=== PATIENT | male | born 1960 | race American Indian/Alaskan Native ===

== ENCOUNTER 2016-11-23 13:24 | Outpatient (CLI) | payer MEDICAID ==
--- NOTE | 2016-11-23 14:53 | XRay Report ---
CHEST 2 VIEWS INDICATION: Cough. COMPARISON: 11/09/2015 FINDINGS: PA and lateral chest radiographs demonstrate new approximately 11 x 2.7 cm right upper lobe pneumonia extending from the hilum obliquely to the pleura. Subtle 7 cm light left upper lobe hazy pneumonia also not entirely excluded versus artifactual. Normal cardiomediastinal silhouette. Clear remainder lungs without pleural effusions or CHF. Intact bones. CONCLUSION: New large right mid lung pneumonia with questionable subtle left upper lobe hazy opacity as well. Please correlate. Followup to complete resolution after adequate conservative treatment suggested. Thank you for the opportunity to participate in this patient's care.
== END 2016-11-23 13:25 | disposition home or self-care (01) ==
LOC: XRAY 13:24
PROVIDERS: ATTEND Internal Medicine Hematology & Oncology
DX: J18.9 Pneumonia, unspecified organism (principal); I10 Essential (primary) hypertension; D64.9 Anemia, unspecified
CPT/HCPCS: 71020

== ENCOUNTER 2016-12-01 16:11 | Emergency (ER) | payer MEDICAID ==
[2016-12-01 16:30] VITALS: BP 105/66
[2016-12-01] MEDS ORDERED: LEVAQUIN PO ONE (19:25)
--- NOTE | 2016-12-01 19:31 | Emergency Department Report ---
- General Chief Complaint: Upper Respiratory Infection Stated Complaint: COLD SYMPTOMS Time Seen by Provider: 12/01/16 19:18 Source: patient Mode of arrival: Ambulatory Limitations: No Limitations - History of Present Illness Initial Comments: Patient comes into the ER today with complaints of continued cough and congestion for the past 2-3 weeks. Patient states that he was seen by his doctor last week and set up here for a chest x-ray but has not been told what the results were. Patient denies any fever, body aches, chest pain. MD Complaint: cough -: week(s) (2) - Related Data Previous Rx's Medication Instructions Recorded Last Taken Type ALBUTEROL Inhaler [ProAir HFA 2 puff IH QID PRN #1 each 12/01/16 Unknown Rx Inhaler] Levofloxacin [Levaquin] 750 mg PO QDAY #10 tablet 12/01/16 Unknown Rx Allergies Allergy/AdvReac Type Severity Reaction Status Date / Time No Known Allergies Allergy Unverified 05/10/13 08:48 ED Review of Systems ROS: Stated complaint: COLD SYMPTOMS Other details as noted in HPI Constitutional: other (fatigue). denies: chills, fever Eyes: denies: eye pain, eye discharge, vision change ENT: denies: ear pain, throat pain Respiratory: cough. denies: shortness of breath, SOB with exertion, wheezing Cardiovascular: denies: chest pain, palpitations Endocrine: no symptoms reported Gastrointestinal: denies: abdominal pain, nausea, diarrhea Genitourinary: denies: urgency, dysuria Musculoskeletal: denies: back pain, joint swelling, arthralgia Skin: denies: rash, lesions Neurological: denies: headache, weakness, paresthesias Psychiatric: denies: anxiety, depression Hematological/Lymphatic: denies: easy bleeding, easy bruising ED Past Medical Hx - Past Medical History Previous Medical History?: Yes Hx Hypertension: Yes Hx Congestive Heart Failure: No Hx Diabetes: No Hx Liver Disease: Yes Hx Asthma: No Hx COPD: No Additional medical history: gout. Poor historian. History of liver disease. Previous transfusion in the past and celiotomy for "internal bleeding". - Surgical History Past Surgical History?: Yes Additional Surgical History: Exploratory laparotomy years ago after an accident - Social History Smoking Status: Never Smoker Substance Use Type: Alcohol, Prescribed - Medications Home Medications: Home Medications Medication Instructions Recorded Confirmed Last Taken Type ALBUTEROL Inhaler [ProAir HFA 2 puff IH QID PRN #1 each 12/01/16 Unknown Rx Inhaler] Levofloxacin [Levaquin] 750 mg PO QDAY #10 tablet 12/01/16 Unknown Rx ED Physical Exam - General Limitations: No Limitations General appearance: alert, in no apparent distress - Head Head exam: Present: atraumatic, normocephalic - Eye Eye exam: Present: normal appearance. Absent: conjunctival injection - ENT ENT exam: Present: mucous membranes moist, TM's normal bilaterally, normal external ear exam, other (diffuse dental decay) - Neck Neck exam: Present: normal inspection. Absent: tenderness, lymphadenopathy - Respiratory Respiratory exam: Present: rhonchi. Absent: respiratory distress, wheezes, chest wall tenderness, accessory muscle use, decreased breath sounds - Cardiovascular Cardiovascular Exam: Present: regular rate, normal rhythm, normal heart sounds. Absent: systolic murmur, diastolic murmur, rubs, gallop - GI/Abdominal GI/Abdominal exam: Present: soft, normal bowel sounds. Absent: tenderness, guarding - Rectal Rectal exam: Present: deferred - Extremities Exam Extremities exam: Present: normal inspection. Absent: pedal edema, joint swelling, calf tenderness - Back Exam Back exam: Present: normal inspection - Neurological Exam Neurological exam: Present: alert, oriented X3, CN II-XII intact - Psychiatric Psychiatric exam: Present: normal affect, normal mood - Skin Skin exam: Present: warm, dry, intact, normal color. Absent: rash ED Course Vital Signs 12/01/16 16:25 Temperature 97.5 F L Pulse Rate 116 H Respiratory 18 Rate Blood Pressure 105/66 O2 Sat by Pulse 98 Oximetry ED Medical Decision Making - Medical Decision Making Patient is nontoxic appearing and hemodynamically stable. Patient is in no acute distress during examination. Previously ordered chest x-ray from his primary care doctor reviewed and discussed with patient in room. Informed patient that his chest x-ray did show he has a right sided pneumonia noted on x- ray. Patient states that he has an appointment with his primary care doctor back on December 16. I'll start patient on antibiotics accordingly and strongly encourage patient to keep appointment with primary care doctor or return to here if symptoms worsen. Patient is in agreement with treatment plan patient is stable for discharge. Critical care attestation.: If time is entered above; I have spent that time in minutes in the direct care of this critically ill patient, excluding procedure time. ED Disposition Clinical Impression: Pneumonia Disposition: DC-01 TO HOME OR SELFCARE Is pt being admited?: No Does the pt Need Aspirin: No Condition: Stable Instructions: Community-acquired Pneumonia (ED), How to Use a Metered-Dose Inhaler (ED) Prescriptions: ALBUTEROL Inhaler [ProAir HFA Inhaler] 2 puff IH QID PRN #1 each PRN Reason: Shortness Of Breath Levofloxacin [Levaquin] 750 mg PO QDAY #10 tablet Referrals: PRIMARY CARE, [Primary Care Provider] - 3-5 Days Time of Disposition: 19:34
== END 2016-12-01 19:55 | disposition home or self-care (01) ==
LOC: ED 16:11
DX: J18.9 Pneumonia, unspecified organism (principal); I10 Essential (primary) hypertension
CPT/HCPCS: 99282

== ENCOUNTER 2016-12-12 12:55 | Inpatient (IN) | payer MEDICAID ==
--- NOTE | 2016-12-12 14:50 | Emergency Department Report ---
Chief Complaint: Chest Pain Stated Complaint: COUGHING BLOOD/DIZZY/LOW BP Time Seen by Provider: 12/12/16 14:47 - HPI History of Present Illness: She is a 56-year-old male recently diagnosed with pneumonia month ago complains of bloody sputum productive cough. Patient also admits to chest pain and difficulty breathing. He also admits night sweats Patient denies fever/chills/abdominal pain/dizziness/headache - ROS Review of Systems: As noted in HPI - Exam Vital Signs: Vital Signs 12/12/16 14:26 Temperature 98.0 F Pulse Rate 96 H Respiratory 22 Rate Blood Pressure 107/67 O2 Sat by Pulse 98 Oximetry Physical Exam: GENERAL: Alert and oriented x3, actively coughing up blood HEAD: Head is normocephalic and a-traumatic. EYES: There is yellowish tint to the sclera bilaterally NECK: Supple. Non edematous, No carotid bruits. No lymphadenopathy or thyromegaly. No C-spine tenderness LUNGS: Decreased breath sounds, respiratory symmetrical, HEART: S1, S2 present, regular rate and rhythm without murmur, no rubs, no gallops. Non tender to palpation MSE screening note: Focused history and physical exam performed. Due to findings the following was ordered: ED Medical Decision Making - Medical Decision Making Chest x-ray ordered, chest pain protocol ordered. Patient to be seen by ED physician. ED Disposition for MSE Condition: Stable
--- NOTE | 2016-12-12 15:35 | XRay Report ---
ROUTINE CHEST, TWO VIEWS: HISTORY: Cough, bloody sputum, pain. Compared to 11/23/16. Linear opacity extending from the right hilum to the right upper lobe is unchanged. There is new or increased peribronchial infiltrate in the left apical region on today's exam. Lower lung zones remain clear. No pleural effusion or pneumothorax. Heart size is within normal limits. IMPRESSION: Stable right upper lobe opacity which may represent scarring. New or increased left apical opacity. This could represent pneumonia. Tuberculosis should also be considered. Consider further evaluation with CT chest with contrast.
[2016-12-12 15:50] LABS: Basophils % (Auto) 0.5 % (0.0-1.8); Eosinophils % (Auto) 1.1 % (0.0-4.3); Hematocrit 27.9 % (35.5-45.6); Hemoglobin 9.2 gm/dl (11.8-15.2); Mean Corpuscular HGB Conc 33 % (32-34); Mean Corpuscular Hemoglobin 26 pg (28-32); Mean Corpuscular Volume 80 fl (84-94); Platelet Count 316 K/mm3 (140-440); Red Blood Count 3.51 M/mm3 (3.65-5.03); Red Cell Distribution Width 18.2 % (13.2-15.2); White Blood Count 9.2 K/mm3 (4.5-11.0)
[2016-12-12 16:15] LABS: Anion Gap 27 mmol/L; Blood Urea Nitrogen 25 mg/dL (9-20); Carbon Dioxide 16 mmol/L (22-30); Chloride 91.4 mmol/L (98-107); Glucose 104 mg/dL (75-100); Potassium 4.8 mmol/L (3.6-5.0); Sodium 130 mmol/L (137-145)
[2016-12-12] MEDS ORDERED: NACL 0.9% 1000 ML 1,000 ML IV ONE ×2 (22:06)
--- NOTE | 2016-12-12 22:23 | Emergency Department Report ---
ED General Adult HPI - General Chief complaint: Chest Pain Stated complaint: COUGHING BLOOD/DIZZY/LOW BP Time Seen by Provider: 12/12/16 21:46 Source: patient Mode of arrival: Ambulatory Limitations: No Limitations - History of Present Illness Initial comments: 56-year-old male presents to the emergency department complaining of chest pain , night sweats, and coughing up blood. Patient states he's been coughing up blood for approximately 2 months. Initially it was just specks of bright red blood, but it has now become more voluminous and thicker. He began having some chest pain yesterday. Patient denies fever but states he has been having chills. He also reports weight loss, but cannot say how much is loss. Patient states she was recently treated for pneumonia, but is not getting any better. There are no other complaints. -: Gradual, month(s) (2) Location: chest Radiation: non-radiation Severity scale (0 -10): 2 Quality: aching Consistency: constant Improves with: none Worsens with: none Associated Symptoms: cough, diaphoresis, fever/chills - Related Data Previous Rx's Medication Instructions Recorded Last Taken Type ALBUTEROL Inhaler [ProAir HFA 2 puff IH QID PRN #1 each 12/01/16 Unknown Rx Inhaler] Levofloxacin [Levaquin] 750 mg PO QDAY #10 tablet 12/01/16 Unknown Rx Allergies Allergy/AdvReac Type Severity Reaction Status Date / Time No Known Allergies Allergy Unverified 05/10/13 08:48 ED Review of Systems ROS: Stated complaint: COUGHING BLOOD/DIZZY/LOW BP Other details as noted in HPI Comment: All other systems reviewed and negative Constitutional: chills, diaphoresis Respiratory: cough, other (hemoptysis) Cardiovascular: chest pain Endocrine: unexplained weight loss ED Past Medical Hx - Past Medical History Previous Medical History?: Yes Hx Hypertension: Yes Hx Congestive Heart Failure: No Hx Diabetes: No Hx Liver Disease: Yes Hx Asthma: No Hx COPD: No Additional medical history: gout. Poor historian. History of liver disease. Previous transfusion in the past and celiotomy for "internal bleeding". - Surgical History Past Surgical History?: Yes Additional Surgical History: Exploratory laparotomy years ago after an accident - Family History Family history: no significant - Social History Smoking Status: Never Smoker Substance Use Type: Alcohol - Medications Home Medications: Home Medications Medication Instructions Recorded Confirmed Last Taken Type ALBUTEROL Inhaler [ProAir HFA 2 puff IH QID PRN #1 each 12/01/16 Unknown Rx Inhaler] Levofloxacin [Levaquin] 750 mg PO QDAY #10 tablet 12/01/16 Unknown Rx ED Physical Exam - General Limitations: No Limitations General appearance: alert, in no apparent distress - Head Head exam: Present: atraumatic, normocephalic - Eye Eye exam: Present: normal appearance, PERRL, EOMI - ENT ENT exam: Present: normal exam, normal orophraynx, mucous membranes moist - Neck Neck exam: Present: normal inspection, full ROM. Absent: tenderness - Respiratory Respiratory exam: Present: normal lung sounds bilaterally. Absent: respiratory distress - Cardiovascular Cardiovascular Exam: Present: regular rate, normal rhythm, normal heart sounds - GI/Abdominal GI/Abdominal exam: Present: soft, normal bowel sounds. Absent: distended, tenderness - Extremities Exam Extremities exam: Present: normal inspection, full ROM. Absent: tenderness - Back Exam Back exam: Present: normal inspection, full ROM. Absent: tenderness - Neurological Exam Neurological exam: Present: alert, oriented X3. Absent: motor sensory deficit - Skin Skin exam: Present: warm, dry, intact ED Course Vital Signs 12/12/16 14:26 Temperature 98.0 F Pulse Rate 96 H Respiratory 22 Rate Blood Pressure 107/67 O2 Sat by Pulse 98 Oximetry ED Medical Decision Making - Lab Data Result diagrams: 12/12/16 15:39 12/12/16 15:39 - EKG Data -: EKG Interpreted by [facility] EKG shows normal: sinus rhythm, axis, intervals, QRS complexes, ST-T waves Rate: normal - EKG Data When compared to previous EKG there are: no significant change Interpretation: unchanged when compared t (11/04/2015) - Radiology Data Radiology results: report reviewed, image reviewed Chest x-ray shows stable right upper lobe opacity, which could be scarring. There is a new left upper lobe opacity that could represent pneumonia, tuberculosis is also a possibility. - Medical Decision Making N95 mask was worn at all times while interviewing and examining the patient. Lab and imaging results were reviewed and discussed with the patient and family. Blood cultures and AFB culture and smear have been ordered. Patient is to be admitted by the hospitalist. - Differential Diagnosis pneumonia, TB, atypical chest pain Critical care attestation.: If time is entered above; I have spent that time in minutes in the direct care of this critically ill patient, excluding procedure time. ED Disposition Clinical Impression: Pneumonia Qualifiers: Pneumonia type: due to unspecified organism Laterality: right Lung location: upper lobe of lung Qualified Code(s): J18.1 - Lobar pneumonia, unspecified organism Disposition: OP ADMIT IP TO THIS HOSP Is pt being admited?: Yes Condition: Stable Instructions: Bacterial Pneumonia (ED) Referrals: PRIMARY CARE, [Primary Care Provider] - 3-5 Days Time of Disposition: 22:06
--- NOTE | 2016-12-12 22:41 | Admit Criteria Form ---
Admission Criteria Documentation: PULMONARY DISEASE GRG Clinical Indications for Admission to Inpatient Care ( Place 'X' for any and all applicable criteria): Hospital admission is needed for appropriate care of the patient because of 1 or more of the following(1)(2): [ ]I. Impending or actual respiratory arrest. See Respiratory Failure GRG guideline for severe respiratory disease and long-term mechanical ventilation patients. (3)(4) (5) [ ]II. Severe airflow or ventilation abnormalities (not responsive to emergency and observation care treatment as appropriate) as indicated by 1 or more of the following (6)(7)(8)(9) : [ ]a) PCO2 greater than 42 mm Hg (5.6 kPa) and pH less than 7.35 (new) [ ]b) Documented PCO2 increased more than 5 mm Hg (0.7 kPa) from disease baseline [ ]c) Airflow measurements[A] less than 60% of previous best or predicted (eg, peak expiratory flow rate less than 300 L/min) despite intensive emergent treatment(B) [ ]d) Required respiratory treatments that are performable only in acute inpatient setting [ ]III. Severe respiratory findings (not responsive to emergency and observation care treatment as appropriate) including 1 or more of the following(6)(9)(10): [ ]a) Respiratory distress as indicated by ALL of the following(6)(11): [ ]i) Patient with 1 or more of the following: [ ]1) Dyspnea (difficulty breathing) [ ]2) Tachypnea [ ]3) Abnormal breathing pattern (eg, chest retractions) [ ]4) Other evidence of difficulty breathing [ ]ii) Evidence of respiratory compromise indicated by 1 or more of the following: [ ]1) Hypoxemia [ ]2) Altered mental status [ ]3) Other evidence of respiratory compromise (eg, pulmonary edema on chest x-ray) [ ]b) Stridor [ ]c) Gross hemoptysis(12) [ ]d) Acute cyanosis [ ]IV. Chronic lung disease with severe deterioration (not responsive to emergency and observation care treatment as appropriate) as indicated by 1 or more of the following(7) (13): [ ]a) SaO2 5% below baseline in patient with chronic hypoxemia [ ]b) New requirement for supplemental oxygen to keep SaO2 at baseline or acceptable level [ ]c) Required supplemental oxygen performable only in acute inpatient setting [ ]d) Severe airflow or ventilation abnormalities [ ]e) Previouslymobile patient unable to walk between rooms [ ]f) Inability to eat or sleep due to dyspnea [ ]g) Altered mental status that is severe or persistent [ ]V. Empyema or lung abscess(14)(15) [ ]Vl. Severe atelectasis or lung collapse(16)(17) [ ]Samantha. Tuberculosis requiring inpatient treatment as indicated by 1 or more of the following(18)(19)(20)(21): [ ]a) Diagnosis suspected (eg, symptomatic patient from endemic area or in high-risk population, with abnormal chest imaging) and cannot be ruled out within observation care timeframe (ie, sputum analysis, nucleic acid amplification techniques not rapidly available or not diagnostic) [ ]b) Severely symptomatic patient (eg, Hypoxemia, Hemodynamic instability, Tachypnea) [ ]c) Zilru-jjlb-szrsszzaf infection suspected in newly diagnosed patient (eg, treatment regimen may require near-term adjustment) [ ]d) Newly diagnosed patient at high-risk of short-term deterioration (eg, HIV positive, frail, immunocompromised, chronic lung disease) [ ]e) High infectivity suspected (eg, laryngeal disease, cavitary pulmonary lesions, ongoing positivity of sputum) and 1 or more of the following: [ ]i) Unexposed household contacts at high risk (eg, immunocompromised, elderly, infants, chronic lung disease) [ ]ii) Patient unable or unwilling to avoid exposing others (eg, significant psychiatric disease, substance abuse, developmental disability) [ ]f) Complication of tuberculosis requiring inpatient treatment (eg , constrictive pericarditis, tubercular meningitis) [ ]g) Hospitalization mandated by public health authority (eg, patient continually noncompliant with directly observed therapy) [ ]VIII. High-risk pulmonary infection as indicated by 1 or more of the following(22)(23)(24)(25): [ ]a) Temperature less than 95 degrees F (35 degrees C) or greater than 103.1 degrees F (39.5 degrees C) [ ]b) Hemodynamic instability [ ]c) Immunocompromised patient (eg, AIDS, post transplant, neutropenic)(26)(27) [ ]d) History of severe COPD(28) [ ]e) History of severely symptomatic congestive heart failure(29) [ ]f) Other high-risk comorbidity (eg, poorly controlled diabetes, cirrhosis, chronic renal insufficiency) [ ]g) Hypoxemia [ ]h) severe stridor (30) [ ]i) Outpatient, observation, or recovery facility therapy has failed, is not appropriate, or is not feasible. [ ]IX. Complications of tracheostomy that remains after emergency or observation level care(31)(32)(33)(34) [ ]X. Respiratory complications of organ transplant (eg, rejection, respiratory failure, respiratory infection)(27) [ ]XI. Severe pulmonary arterial hypertension or pulmonary vascular disease requiring inpatient care indicated by 1 or more of the following(35)(36)(37)(38): [ ]a) Initiation or change of vasodilators (IV, subcutaneous, or inhaled) or other vasoactive medications needed [ ]b) IV anticoagulation needed (eg, immediate anticoagulation necessary, alternatives not appropriate) [ ]c) Arterial or pulmonary artery catheter monitoring needed due to infusion or other treatment [ ]XII. Cystic fibrosis requiring inpatient care as indicated by 1 or more of the following(39)(40): [ ]a) Severe exacerbation that does not respond to intensified home therapy(41) [ ]b) Severe exacerbation with patient unable to perform prescribed treatments at home [ ]c) Pneumonia [ ]d) Pneumothorax(42) [ ]e) Atelectasis [ ]f) Hemoptysis(43) [ ]XIII. Bronchiectasis requiring inpatient care as indicated by 1 or more of the following(44)(45): [ ]a) Respiratory distress [ ]b) Severe exacerbation and outpatient or observation care therapy has failed, is not appropriate, or is not feasible. [ ]XIV. Sarcoidosis requiring inpatient care as indicated by 1 or more of the following(46)(47)(48): [ ]a) Respiratory distress [ ]b) Cardiac involvement with arrhythmia(49) [ ]c) Outpatient or observation care therapy has failed, is not appropriate, or is not feasible. [ ]XV. Intestitial lung disease requiring inpatient care as indicated by 1 or more of the following(50)(51): [ ]a) Respiratory distress [ ]b) Severe exacerbation and outpatient or observation care therapy has failed, is not appropriate, or is not feasible [ ]XVI. Allergic pneumonitis requiring inpatient care as indicated by 1 or more of the following(52): [ ]a) Respiratory distress [ ]b) Acute eosinophilic pneumonia [ ]c) Churg Harvey with cardiac involvement [ ]d) Outpatient or observation care therapy has failed, is not appropriate, or is not feasible [ ]XVIl. Severe right heart failure requiring inpatient care as indicated by 1 or more of the following(35)(53)(54): [ ]a) Respiratory distress [ ]b) Debilitating anasarca that remains after emergency or observation level care (eg, tissue [ ]c) breakdown with severe infection, inability to void due to edema) [C](41)(42)(43)(44) [ ]d) Hemodynamic instability [ ]e) Syncope [ ]f) Angina that requires inpatient care (eg, not treatable in emergency or observation level of care) [ ]g) Increasing organ failure (eg, liver congestion with significant and worsening or new elevation of transaminases) [ ]XVIll. Injury requiring inpatient care (medical) as indicated by 1 or more of the following(59)(60)(61) [ ]a) Significant inhalation injury (eg, smoke inhalation, other toxic inhalation)(62)(63)(64) [ ]b) Airway obstruction that remains or is unstable after emergency or observation level care(65)(66) [ ]c) Severe pain requiring acute inpatient management [ ]d) Lung contusion(67) [ ]e) Flail chest(68) [ ]f) Bronchial tree injury [ ]g) Air or fat emboli [ ]h) Other injury not treatable in emergency or observation level care (eg, hemothorax)(55) [ ]XlX. Pulmonary hemorrhage or significant hemoptysis(12)(43)(69) [ ]XXl. Complications of transplanted lung indicated by 1 or more of the following(70)(71) [ ]a) Acute graft rejection requiring inpatient management (eg, intravenous immunosuppression)(72)(73)(74) [ ]b) Failure of transplant lung as indicated by 1 or more of the following(75)(76): [ ]i) Anastomotic leak [ ]ii) Airway ischemia or necrosis [ ]iii) Airway fistula [ ]iv) Obstructing granulation tissue requiring intervention [ ]v) Bronchial stenosis or stricture requiring intervention [ ]vi) Tracheobronchomalacia requiring intervention [ ]vii) Severe airflow or ventilation abnormalities [ ]viii) Severe respiratory findings [ ]c) Infection requiring inpatient management (eg, Hemodynamic instability, need for intravenous antimicrobial treatment)(77)(78)(79)(80)(81)(82 [ ]d) Other complication of transplanted lung (eg, obliterative bronchiolitis, plastic bronchitis, thrombotic microangiopathy, constrictive pericarditis) requiring inpatient management(83)(84)(85)(86)(87) [ ]XXll. Inpatient palliative care needed.[D](88)(89)(90)(91) [X ]XXlll. Pulmonary Disease condition, symptom, or finding for which emergency and observation care have failed or are not considered appropriate. The original [facility] content created by [employer] has been revised. The portions of the content which have been revised are identified through the use of italic text or in bold, and [facility] has neither reviewed nor approved the modified material. All other unmodified content is copyright [employer] includes the [facility]. Please see references footnoted in the original [facility] edition 2017 Admission Criteria Met: Yes
[2016-12-12] MEDS ORDERED: ZOFRAN IV PRN (23:46)
[2016-12-12] MEDS ORDERED: TYLENOL PO PRN (23:46)
[2016-12-12] MEDS ORDERED: ROBITUSSIN PO PRN (23:48)
--- NOTE | 2016-12-13 03:58 | History and Physical Report ---
History of Present Illness Date of examination: 12/12/16 Date of admission: 12/12/16 22:44 Chief complaint: Chief complaint is hemoptysis, other complaining include chest pain, night sweats and weight loss History of present illness: History of present illness, patient is a 56-year-old male who said he has been having hemoptysis for about 2 months but noticed increasing blood in the sputum recently, patient started having chest pain within the last 24-48 hours and also complaining of night sweats and weight loss. There is history of chills but no fever, there is no history of shortness of breath and no history of dizziness, nausea or vomiting. Patient was recently treated for pneumonia but said he hasn't quite recovered Past History Past Medical History: No medical history Past Surgical History: No surgical history Social history: no significant social history Family history: no significant family history Medications and Allergies Allergies Allergy/AdvReac Type Severity Reaction Status Date / Time No Known Allergies Allergy Unverified 05/10/13 08:48 Home Medications Medication Instructions Recorded Confirmed Last Taken Type ALBUTEROL Inhaler [ProAir HFA 2 puff IH QID PRN #1 each 12/01/16 Unknown Rx Inhaler] Levofloxacin [Levaquin] 750 mg PO QDAY #10 tablet 12/01/16 Unknown Rx Active Meds: Active Medications Acetaminophen (Tylenol) 650 mg PO Q4H PRN PRN Reason: For Pain/Fever/Headache Guaifenesin (Robitussin) 200 mg PO Q4H PRN PRN Reason: Cough Heparin Sodium (Porcine) (Heparin) 5,000 unit SUB-Q Q12HR LESLI Sodium Chloride (Nacl 0.9% 1000 Ml) 1,000 mls @ 125 mls/hr IV ONCE ONE Stop: 12/13/16 06:05 Last Admin: 12/12/16 22:41 Dose: 125 mls/hr Azithromycin 500 mg/ Sodium (Chloride) 250 mls @ 250 mls/hr IV Q24HR LESLI Ceftriaxone Sodium (Rocephin/Ns 1 Gm/50 Ml) 1 gm in 50 mls @ 100 mls/hr IV Q24HR LESLI PRN Reason: Protocol Ondansetron HCl (Zofran) 4 mg IV Q8H PRN PRN Reason: Nausea And Vomiting Review of Systems Constitutional: weight loss, night sweats, no weight gain, no fever, no chills, no anorexia, no fatigue, no weakness, no malaise, no lethargy, no poor appetite Eyes: bilateral: other (NO BILATERAL EYE SYMPTOMS) Ears, nose, mouth and throat: no ear pain, no ear discharge, no decreased hearing, no nose pain, no nasal congestion, no nasal discharge, no bleeding gums , no dental pain, no mouth pain, no dysphagia, no hoarseness, no sore throat, no swelling in mouth, no post-nasal drip, no headache, no vertigo, no pain front of neck, no neck fullness/pressure Cardiovascular: chest pain, no palpitations, no syncope, no lightheadedness, no shortness of breath, no paroxysmal nocturnal dyspnea, no claudication, no high blood pressure, no leg edema Respiratory: hemoptysis, no cough, no excessive sputum, no shortness of breath, no dyspnea on exertion, no congestion, no wheezing, no pain, no respiratory infections Gastrointestinal: no abdominal pain, no nausea, no vomiting, no diarrhea, no constipation, no hematochezia, no loss of appetite, no early satiety, no heartburn, no indigestion, no excessive gas, no jaundice, no dyspepsia/bloating Genitourinary Male: no dysuria, no hematuria, no flank pain, no discharge, no urinary frequency, no urinary hesitancy, no nocturia, no incontinence, no erectile dysfunction, no impotence, no decreased libido, no testicular pain, no testicular lump, no difficulties fathering child, no polyuria, no urinary retention, no kidney stones Rectal: no pain, no itching, no hemorrhoids, no flatulence Musculoskeletal: no neck stiffness, no neck pain, no shooting arm pain, no arm numbness/tingling, no low back pain, no shooting leg pain, no hot joints, no morning stiffness, no muscle weakness, no muscle cramps, no myalgias, no atrophy , no fractures, no loss of height Integumentary: no rash, no pruritis, no redness, no sores, no wounds, no jaundice, no bullae, no lesions, no darkening of skin, no depigmentation, no acne, no dryness, no change in hair/nails, no brittle nails, no striae, no hirsutism, no foot/leg ulcers, no onychomycosis Neurological: no transient paralysis, no paralysis, no weakness, no parathesias , no numbness, no tingling, no seizures, no syncope, no tremors, no vertigo, no headaches, no migraines, no convulsions, no aphasia, no change in speech, no change in mentation, no confusion, no memory loss, no gait dysfunction, no sensory deficit, no double vision, no loss of vision, no hearing difficulties, no burning pain Psychiatric: no anxiety, no memory loss, no change in sleep habits, no sleep disturbances, no insomnia, no hypersomnia, no change in appetite, no change in libido, no suicidal ideation, no disorientation, no paranoia, no depression, no hopelessness, no anhedonia, no anxiety attacks, no difficulties concentrating, no confusion Endocrine: no cold intolerance, no heat intolerance, no excessive thirst, no polydipsia, no polyuria, no nocturia, no deepening of the voice, no thyroid mass , no palpatations Hematologic/Lymphatic: no easy bruising, no easy bleeding, no lymphadenopathy, no lymphedema, no thrombophilia Allergic/Immunologic: no urticaria, no allergic rhinitis, no wheezing, no persistent infections, no anaphylaxis, no angioedema, no gluten intolerance Exam - Constitutional Vitals: Temp Pulse Resp BP Pulse Ox 98.0 F 81 18 123/69 99 12/12/16 14:26 12/13/16 00:10 12/13/16 00:10 12/13/16 00:10 12/13/16 00:10 General appearance: Present: mild distress - EENT Eyes: Present: PERRL, EOM intact ENT: hearing intact, clear oral mucosa, dentition normal, no oropharyngeal erythema - Neck Neck: Present: supple, normal ROM - Respiratory Respiratory effort: normal - Cardiovascular Rhythm: regular Heart Sounds: Present: S1 & S2. Absent: rub, click - Extremities Extremities: no ischemia, No edema Peripheral Pulses: within normal limits - Abdominal General gastrointestinal: Present: soft, non-tender, non-distended. Absent: tender, distended, rigid, hepatomegaly, splenomegaly, mass Male genitourinary: Present: deferred - Rectal Rectal Exam: deferred - Integumentary Integumentary: Present: clear, warm, dry, normal turgor. Absent: erythema, jaundice, rash, clammy - Musculoskeletal Musculoskeletal: strength equal bilaterally - Psychiatric Psychiatric: appropriate mood/affect - Neurologic Neurologic: CNII-XII intact Results - Labs CBC & Chem 7: 12/12/16 15:39 12/12/16 15:39 Labs: Laboratory Last Values WBC 9.2 K/mm3 (4.5-11.0) 12/12/16 15:39 RBC 3.51 M/mm3 (3.65-5.03) L 12/12/16 15:39 Hgb 9.2 gm/dl (11.8-15.2) L 12/12/16 15:39 Hct 27.9 % (35.5-45.6) L 12/12/16 15:39 MCV 80 fl (84-94) L 12/12/16 15:39 MCH 26 pg (28-32) L 12/12/16 15:39 MCHC 33 % (32-34) 12/12/16 15:39 RDW 18.2 % (13.2-15.2) H 12/12/16 15:39 Plt Count 316 K/mm3 (140-440) 12/12/16 15:39 Lymph % (Auto) 10.1 % (13.4-35.0) L 12/12/16 15:39 [place] % (Auto) 8.5 % (0.0-7.3) H 12/12/16 15:39 Eos % (Auto) 1.1 % (0.0-4.3) 12/12/16 15:39 Baso % (Auto) 0.5 % (0.0-1.8) 12/12/16 15:39 Lymph # 0.9 K/mm3 (1.2-5.4) L 12/12/16 15:39 [place] # 0.8 K/mm3 (0.0-0.8) 12/12/16 15:39 Eos # 0.1 K/mm3 (0.0-0.4) 12/12/16 15:39 Baso # 0.0 K/mm3 (0.0-0.1) 12/12/16 15:39 Seg Neutrophils % 79.8 % (40.0-70.0) H 12/12/16 15:39 Seg Neutrophils # 7.3 K/mm3 (1.8-7.7) 12/12/16 15:39 Sodium 130 mmol/L (137-145) L 12/12/16 15:39 Potassium 4.8 mmol/L (3.6-5.0) 12/12/16 15:39 Chloride 91.4 mmol/L (98-107) L 12/12/16 15:39 Carbon Dioxide 16 mmol/L (22-30) L 12/12/16 15:39 Anion Gap 27 mmol/L 12/12/16 15:39 BUN 25 mg/dL (9-20) H 12/12/16 15:39 Creatinine 2.5 mg/dL (0.8-1.5) H 12/12/16 15:39 Estimated GFR 33 ml/min 12/12/16 15:39 BUN/Creatinine Ratio 10.00 % 12/12/16 15:39 Glucose 104 mg/dL (75-100) H 12/12/16 15:39 Calcium 8.0 mg/dL (8.4-10.2) L 12/12/16 15:39 Troponin T < 0.010 ng/mL (0.00-0.029) 12/12/16 15:39 Assessment and Plan - Patient Problems (1) Hemoptysis Current Visit: Yes Status: Acute Plan to address problem: Patient will be admitted to medical floor on droplet precaution for possible TB infection until ruled out for TB and will have sputum for AFB doneas ordered in the emergency room . She will have troponin level checked every 6 hours 2 level and will be on IV Rocephin 1 g daily and IV Zithromax 500 mg daily for treatment of pneumonia. Patient will be on Robitussin 200 mg every 4 hours for cough and will be on IV morphine 2 mg every 3 hours as needed for pain and IV Zofran 4 mg every 6 hours for nausea vomiting, patient will also be on oxygen by nasal cannula 2 L/m and Tylenol 650 mg by mouth every 4 hours for fever and headache. 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
[2016-12-13] MEDS: NACL 0.9% 1000 ML 1,000 ML IV SCH ×2 (05:11→18:46)
[2016-12-13 08:13] LABS: BUN/Creatinine Ratio 11.3; Calcium 7.3 mg/dL (8.4-10.2); Chloride 97.7 mmol/L (98-107); Potassium 4.1 mmol/L (3.6-5.0)
--- NOTE | 2016-12-13 10:08 | Consultation ---
History of Present Illness - Reason for Consult Consult date: 12/13/16 acute renal failure Requesting physician: AKSHAT URBINA - History of Present Illness This is a 56yo AAM with no significant past medical history, who presented to [facility] for having hemoptysis for about 2 months but noticed increasing blood in the sputum recently, patient also c/o chest pain within the last 24-48 hours and also complaining of night sweats and weight loss. patient was seen in ER in the last week of November for SOB, cough, was found to have RML pneumonia which was treated with levaquin. However symptoms did not improve. CXR from 12/12 showed stable RUL opacity with new/increased left apical opacity. Labs also showed elevated BUN/Cr at 25/2.5mg/dl along with hyponatremia and metabolic acidosis. based on chart review, pt's baseline Cr was 1.1mg/dl last year. Pt denies any h/ o recent travel, no sick contacts reported. pt reports chills, nausea and decreased appetite, however denies SOB, palpitations, dizziness, blurry vision, headaches, dysuria, frothy urine, abd pain. Denies recent NSAIDs use or IV contrast exposure. Past History Past Medical History: No medical history Past Surgical History: No surgical history Social history: no significant social history. denies: smoking, alcohol abuse, prescription drug abuse, IV drug use Family history: other (mother - DM, HTN) Medications and Allergies Allergies Allergy/AdvReac Type Severity Reaction Status Date / Time No Known Allergies Allergy Unverified 05/10/13 08:48 Home Medications Medication Instructions Recorded Confirmed Last Taken Type ALBUTEROL Inhaler [ProAir HFA 2 puff IH QID PRN #1 each 12/01/16 Unknown Rx Inhaler] Levofloxacin [Levaquin] 750 mg PO QDAY #10 tablet 12/01/16 Unknown Rx Active Meds: Active Medications Acetaminophen (Tylenol) 650 mg PO Q4H PRN PRN Reason: For Pain/Fever/Headache Guaifenesin (Robitussin) 200 mg PO Q4H PRN PRN Reason: Cough Heparin Sodium (Porcine) (Heparin) 5,000 unit SUB-Q Q12HR LESLI Azithromycin 500 mg/ Sodium (Chloride) 250 mls @ 250 mls/hr IV Q24HR LESLI Ceftriaxone Sodium (Rocephin/Ns 1 Gm/50 Ml) 1 gm in 50 mls @ 100 mls/hr IV Q24HR LESLI PRN Reason: Protocol Sodium Chloride (Nacl 0.9% 1000 Ml) 1,000 mls @ 100 mls/hr IV DIRECT LESLI Last Admin: 12/13/16 05:11 Dose: 100 mls/hr Ondansetron HCl (Zofran) 4 mg IV Q8H PRN PRN Reason: Nausea And Vomiting Review of Systems All systems: negative Constitutional: chills, night sweats, weakness, poor appetite Cardiovascular: chest pain, shortness of breath Respiratory: cough, hemoptysis, shortness of breath Exam - Vital Signs Vital signs: Vital Signs Temp Pulse Resp BP Pulse Ox 98.0 F 96 H 22 107/67 98 12/12/16 14:26 12/12/16 14:26 12/12/16 14:26 12/12/16 14:26 12/12/16 14:26 - General Appearance General appearance: well-developed, well-nourished, appears stated age EENT: ATNC, PERRL, mucous membranes moist Neck: Present: neck supple Respiratory: Ronchi, Productive Cough Heart: regular, S1S2 Gastrointestinal: Present: normal, normoactive bowel sounds Integumentary: no rash, other (no edema ) Neurologic: no focal deficit, alert and oriented x3, strength 5/5, CN 3-12 intact Psychiatric: mood/affect appropriate, cooperative Results - Lab Results 12/12/16 15:39 12/13/16 07:33 Most recent lab results Calcium 7.3 mg/dL (8.4-10.2) L 12/13/16 07:33 Assessment and Plan - Patient Problems (1) ARF (acute renal failure) Current Visit: Yes Status: Acute Qualifiers: Acute renal failure type: A Plan to address problem: Acute kidney injury possibly due to pre-renal azotemia. To rule out acute pulmonary renal syndrom/glomerulonephritis in the setting of acute hemoptysis, AKILAH. check UA, urine lytes, urine protein/cr ratio. check C3,C4, TOBY, ANCA, Anti GBM. If renal function does not improve on IVF, and significant hematuria/ proteinuria seen, will consider IV steroid pulse and obtain renal biopsy. cont supportive care for AKILAH, avoid nephrotoxins, NSAIDs, IV contrast Will monitor lytes and renal paramters closely and make further recommendations (2) Pulmonary-renal syndrome Current Visit: Yes Status: Acute Plan to address problem: work up as above. pt on resp isolation to rule out TB (3) Hemoptysis Current Visit: Yes Status: Acute Plan to address problem: rule out TB, acute pulmonary - renal syndrome. follow pulmonary recs (4) Metabolic acidosis Current Visit: Yes Status: Acute Plan to address problem: nonAG met acidosis in the setting of AKILAH. if serum bicarb continues to decline will start Na Bicarb (5) Pneumonia Current Visit: Yes Status: Acute Qualifiers: Pneumonia type: due to unspecified organism Aspiration pneumonia type: A Laterality: right Lung location: upper lobe of lung Qualified Code(s): J18.1 - Lobar pneumonia, unspecified organism Plan to address problem: on ceftriaxone, azithromycin for community acquired PNA (6) Anemia Current Visit: No Status: Acute Qualifiers: Anemia type: A Iron deficiency anemia type: I Vitamin B12 deficiency anemia type: V Folate deficiency anemia type: F Bone marrow failure anemia type: B Hemolytic anemia type: H Other causes of anemia: O Chronic kidney disease stage: C Plan to address problem: likely due to hemoptysis, follow serial CBC, transfuse for hb < 7, follow pulmonary recs (7) Hypokalemia Onset Date: 11/06/15 Current Visit: No Status: Acute (8) Hyponatremia Onset Date: 11/09/15 Current Visit: No Status: Acute Plan to address problem: likely hypovolemic nature. underlying SIADH acute pulmonary pathology possible. na improving on IV NS. Will check urine osm, serum uric acid level.
[2016-12-13] MEDS: HEPARIN SUB-Q SCH ×2 (11:28→21:57)
[2016-12-13] MEDS: ROCEPHIN/NS 1 GM/50 ML 1 GM/50 ML BAG IV SCH (11:29)
[2016-12-13] MEDS: ZITHROMAX 500 MG in NACL 0.9% 250ML 250 ML IV SCH (12:46)
--- NOTE | 2016-12-13 13:51 | Progress Note ---
Assessment and Plan Assessment and plan: D [id number] presents with pneumonia presently being ruled out for tuberculosis. Acute renal failure has improved somewhat with IV volume rehydration. - Patient Problems (1) ARF (acute renal failure) Current Visit: Yes Status: Acute Qualifiers: Acute renal failure type: A Plan to address problem: Q renal failure could be secondary to vasomotor nephropathy prerenal syndrome versus more chronic in nature. She has had an improvement in creatinine from 2.5-2.3. If no complete resolution workup has been initiated by nephrology. (2) Hemoptysis Current Visit: Yes Status: Acute Plan to address problem: Could be secondary to community-acquired pneumonia versus tuberculosis. Currently being treated with Rocephin and Zithromax for pneumonia. Currently awaiting AFB sputum to rule out TB person on isolation at present. Arthralgias and myalgias control. (3) Pneumonia Current Visit: Yes Status: Acute Qualifiers: Pneumonia type: due to unspecified organism Aspiration pneumonia type: A Laterality: right Lung location: upper lobe of lung Qualified Code(s): J18.1 - Lobar pneumonia, unspecified organism Plan to address problem: Seen to treat for community-acquired pneumonia chest x-ray appreciated left opacity in the upper lobe. Continue azithromycin Rocephin nebulizers Tylenol and oxygen. (4) Pulmonary-renal syndrome Current Visit: Yes Status: Acute (5) Hypertension Onset Date: 11/09/15 Current Visit: No Status: Acute Qualifiers: Hypertension type: H Plan to address problem: At present fair control when at titrate up medications could be potentially hypotensive with renal failure and/or lung failure. History Interval history: Patient states he feels a little better but still coughing up blood. Patient has pain with hemoptysis but improved. Hospitalist Physical - Constitutional Vitals: Temp Pulse Resp BP Pulse Ox 97.7 F 82 20 115/71 99 12/13/16 08:04 12/13/16 08:04 12/13/16 08:04 12/13/16 08:04 12/13/16 09:25 General appearance: Present: no acute distress - EENT Eyes: Present: PERRL, EOM intact ENT: hearing intact, clear oral mucosa, dentition normal - Neck Neck: Present: supple, normal ROM - Respiratory Respiratory: left: diminished, rhonchi (left) - Cardiovascular Rhythm: regular Heart Sounds: Present: S1 & S2 - Extremities Extremities: no ischemia, pulses intact, pulses symmetrical, No edema, Full ROM Peripheral Pulses: within normal limits - Abdominal General gastrointestinal: soft, non-tender, non-distended - Integumentary Integumentary: Present: clear, warm, dry - Psychiatric Psychiatric: appropriate mood/affect, cooperative - Neurologic Neurologic: CNII-XII intact Results - Labs CBC & Chem 7: 12/12/16 15:39 12/13/16 07:33 Labs: Laboratory Last Values WBC 9.2 K/mm3 (4.5-11.0) 12/12/16 15:39 RBC 3.51 M/mm3 (3.65-5.03) L 12/12/16 15:39 Hgb 9.2 gm/dl (11.8-15.2) L 12/12/16 15:39 Hct 27.9 % (35.5-45.6) L 12/12/16 15:39 MCV 80 fl (84-94) L 12/12/16 15:39 MCH 26 pg (28-32) L 12/12/16 15:39 MCHC 33 % (32-34) 12/12/16 15:39 RDW 18.2 % (13.2-15.2) H 12/12/16 15:39 Plt Count 316 K/mm3 (140-440) 12/12/16 15:39 Lymph % (Auto) 10.1 % (13.4-35.0) L 12/12/16 15:39 [place] % (Auto) 8.5 % (0.0-7.3) H 12/12/16 15:39 Eos % (Auto) 1.1 % (0.0-4.3) 12/12/16 15:39 Baso % (Auto) 0.5 % (0.0-1.8) 12/12/16 15:39 Lymph # 0.9 K/mm3 (1.2-5.4) L 12/12/16 15:39 [place] # 0.8 K/mm3 (0.0-0.8) 12/12/16 15:39 Eos # 0.1 K/mm3 (0.0-0.4) 12/12/16 15:39 Baso # 0.0 K/mm3 (0.0-0.1) 12/12/16 15:39 Seg Neutrophils % 79.8 % (40.0-70.0) H 12/12/16 15:39 Seg Neutrophils # 7.3 K/mm3 (1.8-7.7) 12/12/16 15:39 Sodium 133 mmol/L (137-145) L 12/13/16 07:33 Potassium 4.1 mmol/L (3.6-5.0) 12/13/16 07:33 Chloride 97.7 mmol/L (98-107) L 12/13/16 07:33 Carbon Dioxide 21 mmol/L (22-30) L 12/13/16 07:33 Anion Gap 18 mmol/L 12/13/16 07:33 BUN 26 mg/dL (9-20) H 12/13/16 07:33 Creatinine 2.3 mg/dL (0.8-1.5) H 12/13/16 07:33 Estimated GFR 36 ml/min 12/13/16 07:33 BUN/Creatinine Ratio 11.30 % 12/13/16 07:33 Glucose 97 mg/dL (75-100) 12/13/16 07:33 Calcium 7.3 mg/dL (8.4-10.2) L 12/13/16 07:33 Troponin T < 0.010 ng/mL (0.00-0.029) 12/13/16 07:33
[2016-12-13 15:04] LABS: Bilirubin,Urine NEG (Negative); Blood,Urine NEG (Negative); Ketones,Urine NEG (Negative); Leukocyte Esterase,Urine NEG (Negative); Nitrite,Urine NEG (Negative); Protein,Urine <15 mg/dL mg/dL (Negative); Urobilinogen,Urine < 2.0 mg/dL (<2.0); WBC,Urine < 1.0 /HPF (0.0-6.0)
[2016-12-13 15:07] LABS: RBC,Urine < 1.0 /HPF (0.0-6.0)
[2016-12-13 15:26] LABS: Sodium, Urine 48 mEq/L
[2016-12-13] MEDS: NORCO 5/325 PO PRN (18:45)
--- NOTE | 2016-12-13 22:46 | Consultation ---
History of Present Illness - Reason for Consult Consult date: 12/13/16 Anemia/hemoptysis. Requesting physician: IRINA ZHU - History of Present Illness Thank you for this consult, patient seen/examined, in the isolation . Kindly asked to see for reasons above. he is well known to me in the office. presented to [facility] for the second time in 2weeks for PNA. this is a recurrent PNA , after the first large one was treated with ABX oral by ER. This time, Chest imaging suspecting TB, hence the Isolation. His hemoptysis is probably due to the recurrent PNA, perhaps strep PNA.He is a known Alcoholic, and this may even be Klebsiella , or even the TB. Will w/u his anemia again, put on ciwa, nutrition supplement, and will need PPD if non have been done. Past History Past Medical History: anemia, liver disease, other (gouty arthritis.) Past Surgical History: No surgical history Social history: single, lives with family, alcohol abuse. denies: smoking, prescription drug abuse, IV drug use Family history: no significant family history, other (mother - DM, HTN) Medications and Allergies Allergies Allergy/AdvReac Type Severity Reaction Status Date / Time No Known Allergies Allergy Unverified 05/10/13 08:48 Home Medications Medication Instructions Recorded Confirmed Last Taken Type ALBUTEROL Inhaler [ProAir HFA 2 puff IH QID PRN #1 each 12/01/16 12/12/16 Rx Inhaler] 100 MG Allopurinol 100 PO QDAY 12/13/16 12/12/16 History Amlodipine Besylate 10 mg PO DAILY 12/13/16 12/13/16 Unknown History Folic Acid [Folic Acid] 1 mg PO DAILY 12/13/16 12/13/16 Unknown History Hydrochlorothiazide [HCTZ] 50 mg PO DAILY 12/13/16 12/13/16 Unknown History Indomethacin 25 mg PO TID 12/13/16 12/13/16 Unknown History Levofloxacin [Levaquin] 750 mg PO QDAY MDD 100 mg 12/13/16 12/13/16 12/12/16 History Thiamine [Vitamin B-1] 100 mg PO QDAY 12/13/16 12/13/16 Unknown History Vitamin B-12 1,000 mcg PO DAILY 12/13/16 12/13/16 Unknown History Active Meds: Active Medications Acetaminophen (Tylenol) 650 mg PO Q4H PRN PRN Reason: For Pain/Fever/Headache Last Admin: 12/13/16 13:14 Dose: 650 mg Acetaminophen/Hydrocodone Bitart ([place] 5/325) 1 each PO Q6H PRN PRN Reason: Pain, Moderate (4-6) Last Admin: 12/13/16 18:45 Dose: 1 each Guaifenesin (Robitussin) 200 mg PO Q4H PRN PRN Reason: Cough Heparin Sodium (Porcine) (Heparin) 5,000 unit SUB-Q Q12HR [facility] Last Admin: 12/13/16 21:57 Dose: 5,000 unit Azithromycin 500 mg/ Sodium (Chloride) 250 mls @ 250 mls/hr IV Q24HR [facility] Last Admin: 12/13/16 12:46 Dose: 250 mls/hr Ceftriaxone Sodium (Rocephin/Ns 1 Gm/50 Ml) 1 gm in 50 mls @ 100 mls/hr IV Q24HR [facility] PRN Reason: Protocol Last Admin: 12/13/16 11:29 Dose: 100 mls/hr Sodium Chloride (Nacl 0.9% 1000 Ml) 1,000 mls @ 100 mls/hr IV DIRECT [facility] Last Admin: 12/13/16 18:46 Dose: 100 mls/hr Ondansetron HCl (Zofran) 4 mg IV Q8H PRN PRN Reason: Nausea And Vomiting Review of Systems Constitutional: fatigue, poor appetite Respiratory: cough, cough with sputum, hemoptysis Exam - Constitutional Vitals: Temp Pulse Resp BP Pulse Ox 97.2 F L 85 20 102/57 97 12/13/16 16:36 12/13/16 16:36 12/13/16 16:36 12/13/16 16:36 12/13/16 17:43 General appearance: Present: mild distress, malodorous - EENT Eyes: Present: PERRL ENT: hearing intact, clear oral mucosa - Neck Neck: Present: supple, normal ROM - Respiratory Respiratory effort: normal Respiratory: left: rhonchi - Cardiovascular Heart Sounds: Present: S1 & S2. Absent: rub, click - Extremities Extremities: pulses symmetrical, No edema Peripheral Pulses: within normal limits - Abdominal General gastrointestinal: Present: soft, non-tender, non-distended, normal bowel sounds Male genitourinary: Present: deferred - Rectal Rectal Exam: deferred - Integumentary Integumentary: Present: clear, warm, dry - Musculoskeletal Musculoskeletal: gait normal, strength equal bilaterally - Psychiatric Psychiatric: appropriate mood/affect, intact judgment & insight - Neurologic Neurologic: CNII-XII intact, moves all extremities Results - Labs CBC & Chem 7: 12/12/16 15:39 12/13/16 07:33 Labs: Abnormal lab results 12/13/16 12/13/16 Range/Units 07:33 14:30 Sodium 133 L (137-145) mmol/L Chloride 97.7 L (98-107) mmol/L Carbon Dioxide 21 L (22-30) mmol/L BUN 26 H (9-20) mg/dL Creatinine 2.3 H (0.8-1.5) mg/dL Calcium 7.3 L (8.4-10.2) mg/dL Urine Creatinine 62.0 H (0.1-20.0) mg/dL Urine Total Protein < 4 L (5-11.8) mg/dL Assessment and Plan - Patient Problems (1) ARF (acute renal failure) Current Visit: Yes Status: Acute Qualifiers: Acute renal failure type: A (2) Hemoptysis Current Visit: Yes Status: Acute (3) Pneumonia Current Visit: Yes Status: Acute Qualifiers: Pneumonia type: due to unspecified organism Aspiration pneumonia type: A Laterality: right Lung location: upper lobe of lung Qualified Code(s): J18.1 - Lobar pneumonia, unspecified organism (4) Alcohol dependence with withdrawal delirium Onset Date: 11/05/15 Current Visit: No Status: Acute (5) Anemia Current Visit: No Status: Acute Qualifiers: Anemia type: A Iron deficiency anemia type: I Vitamin B12 deficiency anemia type: V Folate deficiency anemia type: F Bone marrow failure anemia type: B Hemolytic anemia type: H Other causes of anemia: chronic disease, other Chronic kidney disease stage: C Qualified Code(s): D63.8 - Anemia in other chronic diseases classified elsewhere
[2016-12-14 05:57] LABS: Basophils % (Auto) 1.9 % (0.0-1.8); Eosinophils % (Auto) 5.7 % (0.0-4.3); Hematocrit 23.8 % (35.5-45.6); Hemoglobin 7.7 gm/dl (11.8-15.2); Mean Corpuscular HGB Conc 32 % (32-34); Mean Corpuscular Hemoglobin 26 pg (28-32); Mean Corpuscular Volume 81 fl (84-94); Platelet Count 266 K/mm3 (140-440); Red Blood Count 2.94 M/mm3 (3.65-5.03); Red Cell Distribution Width 17.7 % (13.2-15.2); White Blood Count 5.7 K/mm3 (4.5-11.0)
[2016-12-14] MEDS: NORCO 5/325 PO PRN ×2 (06:04→12:39)
[2016-12-14 06:13] LABS: Anion Gap 15 mmol/L; BUN/Creatinine Ratio 13.57; Blood Urea Nitrogen 19 mg/dL (9-20); Calcium 7.5 mg/dL (8.4-10.2); Carbon Dioxide 21 mmol/L (22-30); Chloride 102.4 mmol/L (98-107); Glucose 84 mg/dL (75-100); Sodium 134 mmol/L (137-145)
[2016-12-14] MEDS: NACL 0.9% 1000 ML 1,000 ML IV SCH ×2 (06:17→22:19)
[2016-12-14 06:23] LABS: Iron 35 ug/dL (49-181); Total Iron Binding Capacity 177 mcg/dL (250-450)
--- NOTE | 2016-12-14 08:26 | Progress Note ---
Assessment and Plan Assessment and plan: 56M who presents with fever, weight loss and hemptysis. ARF (acute renal failure)/vasomotor nephropathy * Continue IV fluids, resolving * Nephrology input appreciated * To rule out acute pulmonary renal syndrom/glomerulonephritis in the setting of acute hemoptysis and AKILAH. However ua shows no evidence of hematuria/also no significant proteinuria seen. Less likely acute GN. awaiting C3,C4, TOBY, ANCA, Anti GBM. * Avoid nephrotoxins Pneumonia * chest x-ray appreciated left opacity in the upper lobe. * Continue abx, avoid quinolones in light of suspected TB * continue airborne isolation, AFB x3, ID and pulmonary consult * continue empiric antibiotics * send serum quantiferon. * HIV screen was negative on 12/14/16 * Bronchoscopy may be required if there is little yield from sputum cultures. Hypertension * well controlled, continue current medications DVT prophylaxis Lovenox History Interval history: Continues to have cough productive of blood-tinged sputum, low-grade fevers. Feels weak and tired. Complaining of arthralgias all over his body. Hospitalist Physical - Physical exam Narrative exam: General: Patient appears well in no distress HEENT: MMM, EOMI cardiac: S1-S2 heard lungs: clear to auscultation, abdomen: soft, nontender, nondistended bowel sounds positive extremities: no edema clubbing or cyanosis Skin: no rash or lesion Neuro: no focal deficit Psych: appropriate behavior and mood, cognition intact - Constitutional Vitals: Temp Pulse Resp BP Pulse Ox 98.3 F 83 20 118/69 99 12/13/16 23:40 12/14/16 04:00 12/14/16 04:00 12/13/16 23:40 12/14/16 07:22 General appearance: Present: mild distress, malodorous Results - Labs CBC & Chem 7: 12/14/16 05:40 12/14/16 05:40 Labs: Laboratory Last Values WBC 5.7 K/mm3 (4.5-11.0) 12/14/16 05:40 RBC 2.94 M/mm3 (3.65-5.03) L 12/14/16 05:40 Hgb 7.7 gm/dl (11.8-15.2) L 12/14/16 05:40 Hct 23.8 % (35.5-45.6) L 12/14/16 05:40 MCV 81 fl (84-94) L 12/14/16 05:40 MCH 26 pg (28-32) L 12/14/16 05:40 MCHC 32 % (32-34) 12/14/16 05:40 RDW 17.7 % (13.2-15.2) H 12/14/16 05:40 Plt Count 266 K/mm3 (140-440) 12/14/16 05:40 Lymph % (Auto) 18.5 % (13.4-35.0) 12/14/16 05:40 [place] % (Auto) 11.2 % (0.0-7.3) H 12/14/16 05:40 Eos % (Auto) 5.7 % (0.0-4.3) H 12/14/16 05:40 Baso % (Auto) 1.9 % (0.0-1.8) H 12/14/16 05:40 Lymph # 1.0 K/mm3 (1.2-5.4) L 12/14/16 05:40 [place] # 0.6 K/mm3 (0.0-0.8) 12/14/16 05:40 Eos # 0.3 K/mm3 (0.0-0.4) 12/14/16 05:40 Baso # 0.1 K/mm3 (0.0-0.1) 12/14/16 05:40 Seg Neutrophils % 62.7 % (40.0-70.0) 12/14/16 05:40 Seg Neutrophils # 3.6 K/mm3 (1.8-7.7) 12/14/16 05:40 ESR > 140.0 mm/Hr (0-20) 12/14/16 05:40 Sodium 134 mmol/L (137-145) L 12/14/16 05:40 Potassium 4.0 mmol/L (3.6-5.0) 12/14/16 05:40 Chloride 102.4 mmol/L (98-107) 12/14/16 05:40 Carbon Dioxide 21 mmol/L (22-30) L 12/14/16 05:40 Anion Gap 15 mmol/L 12/14/16 05:40 BUN 19 mg/dL (9-20) 12/14/16 05:40 Creatinine 1.4 mg/dL (0.8-1.5) 12/14/16 05:40 Estimated GFR > 60 ml/min 12/14/16 05:40 BUN/Creatinine Ratio 13.57 % 12/14/16 05:40 Glucose 84 mg/dL (75-100) 12/14/16 05:40 Calcium 7.5 mg/dL (8.4-10.2) L 12/14/16 05:40 Magnesium 1.30 mg/dL (1.7-2.3) L 12/14/16 05:40 Iron 35 ug/dL (49-181) L 12/14/16 05:40 TIBC 177 mcg/dL (250-450) L 12/14/16 05:40 Ferritin 156.1 ng/mL (13.0-400.0) 12/14/16 05:40 Lactate Dehydrogenase 87 units/L (91-180) L 12/14/16 05:40 Troponin T < 0.010 ng/mL (0.00-0.029) 12/13/16 13:25 Vitamin B12 963.5 pg/mL (211-911) H 12/14/16 05:40 Urine Color Straw (Yellow) 12/13/16 14:30 Urine Turbidity Clear (Clear) 12/13/16 14:30 Urine pH 6.0 (5.0-7.0) 12/13/16 14:30 Ur Specific [place] 1.006 (1.003-1.030) 12/13/16 14:30 Urine Protein <15 mg/dl mg/dL (Negative) 12/13/16 14:30 Urine Glucose (UA) Neg mg/dL (Negative) 12/13/16 14:30 Urine Ketones Neg mg/dL (Negative) 12/13/16 14:30 Urine Blood Neg (Negative) 12/13/16 14:30 Urine Nitrite Neg (Negative) 12/13/16 14:30 Urine Bilirubin Neg (Negative) 12/13/16 14:30 Urine Urobilinogen < 2.0 mg/dL (<2.0) 12/13/16 14:30 Ur Leukocyte Esterase Neg (Negative) 12/13/16 14:30 Urine WBC (Auto) < 1.0 /HPF (0.0-6.0) 12/13/16 14:30 Urine RBC (Auto) < 1.0 /HPF (0.0-6.0) 12/13/16 14:30 Urine Osmolality 233 Mosm/kg 12/13/16 14:30 Urine Creatinine 62.0 mg/dL (0.1-20.0) H 12/13/16 14:30 Urine Sodium 48 mEq/L 12/13/16 14:30 Urine Total Protein < 4 mg/dL (5-11.8) L 12/13/16 14:30
--- NOTE | 2016-12-14 09:08 | Consultation ---
History of Present Illness - Reason for Consult Consult date: 12/14/16 Suspected Tuberculosis Requesting physician: CHRISTIAN VILA - History of Present Illness Mr. Sadler is a 56-year-old man admitted with several months of hemoptysis, unintentional weight loss and sweats, now concerning for tuberculosis. Chest radiograph showed a stable RUL opacity with a new/ increased BHUPENDRA opacity. He has never traveled outside of [facility]. He has no known TB contacts. He has a history of [facility]) incarceration and resided in a homeless skilled nursing in the early . He is on Rocephin and Azithromycin empirically. ID consulation is requested for further treatment recommendations. Past History Past Medical History: anemia, liver disease, other (gouty arthritis.) Past Surgical History: No surgical history Social history: single, lives with family, alcohol abuse. denies: smoking, prescription drug abuse, IV drug use Family history: no significant family history, other (mother - DM, HTN) Medications and Allergies Allergies Allergy/AdvReac Type Severity Reaction Status Date / Time No Known Allergies Allergy Unverified 05/10/13 08:48 Home Medications Medication Instructions Recorded Confirmed Last Taken Type ALBUTEROL Inhaler [ProAir HFA 2 puff IH QID PRN #1 each 12/01/16 12/12/16 Rx Inhaler] 100 MG Allopurinol 100 PO QDAY 12/13/16 12/12/16 History Amlodipine Besylate 10 mg PO DAILY 12/13/16 12/13/16 Unknown History Folic Acid [Folic Acid] 1 mg PO DAILY 12/13/16 12/13/16 Unknown History Hydrochlorothiazide [HCTZ] 50 mg PO DAILY 12/13/16 12/13/16 Unknown History Indomethacin 25 mg PO TID 12/13/16 12/13/16 Unknown History Levofloxacin [Levaquin] 750 mg PO QDAY MDD 100 mg 12/13/16 12/13/16 12/12/16 History Thiamine [Vitamin B-1] 100 mg PO QDAY 12/13/16 12/13/16 Unknown History Vitamin B-12 1,000 mcg PO DAILY 12/13/16 12/13/16 Unknown History Active Meds: Active Medications Acetaminophen (Tylenol) 650 mg PO Q4H PRN PRN Reason: For Pain/Fever/Headache Last Admin: 12/13/16 13:14 Dose: 650 mg Acetaminophen/Hydrocodone Bitart ([place] 5/325) 1 each PO Q6H PRN PRN Reason: Pain, Moderate (4-6) Last Admin: 12/14/16 06:04 Dose: 1 each Enoxaparin Sodium (Lovenox) 40 mg SUB-Q QDAY@2200 [facility] Folic Acid (Folvite) 1 mg PO QDAY [facility] Guaifenesin (Robitussin) 200 mg PO Q4H PRN PRN Reason: Cough Azithromycin 500 mg/ Sodium (Chloride) 250 mls @ 250 mls/hr IV Q24HR [facility] Last Admin: 12/13/16 12:46 Dose: 250 mls/hr Ceftriaxone Sodium (Rocephin/Ns 1 Gm/50 Ml) 1 gm in 50 mls @ 100 mls/hr IV Q24HR [facility] PRN Reason: Protocol Last Admin: 12/13/16 11:29 Dose: 100 mls/hr Sodium Chloride (Nacl 0.9% 1000 Ml) 1,000 mls @ 100 mls/hr IV DIRECT [facility] Last Admin: 12/14/16 06:17 Dose: 100 mls/hr Thiamine HCl 100 mg/ Sodium (Chloride) 51 mls @ 100 mls/hr IV QDAY [facility] Multivitamins/Minerals (Theragran-M Tab) 1 each PO QDAY [facility] Ondansetron HCl (Zofran) 4 mg IV Q8H PRN PRN Reason: Nausea And Vomiting Review of Systems All systems: negative Constitutional: fever, sweats, weakness, no chills Cardiovascular: chest pain, no palpitations Respiratory: cough with sputum, hemoptysis, dyspnea on exertion Gastrointestinal: no abdominal pain, no nausea, no vomiting, no diarrhea Integumentary: no rash, no pruritis Hematologic/Lymphatic: no lymphadenopathy Physical Examination - Constitutional Vitals: Vital Signs Temp Pulse Resp BP Pulse Ox 98.3 F 83 20 118/69 99 12/13/16 23:40 12/14/16 04:00 12/14/16 04:00 12/13/16 23:40 12/14/16 07:22 Temperature -Last 24 Hours Temperature 98.3 F Temperature 97.2 F General appearance: Present: no acute distress, other (talking on the telephone) - Neck Neck: Present: supple - Respiratory Respiratory effort: normal Respiratory: bilateral: CTA, negative: rales, rhonchi - Cardiovascular Rhythm: regular Heart Sounds: Present: S1 & S2 - Extremities Extremities: No edema - Abdominal General gastrointestinal: Present: soft, non-tender, non-distended - Integumentary Integumentary: Present: clear. Absent: rash - Psychiatric Psychiatric: appropriate mood/affect - Neurologic Neurologic: no focal deficits, moves all extremities Results - Labs CBC & Chem 7: 12/14/16 05:40 12/14/16 05:40 Labs: Abnormal lab results 12/13/16 12/14/16 12/14/16 Range/Units 14:30 05:40 05:40 RBC (3.65-5.03) M/mm3 Hgb (11.8-15.2) gm/dl Hct (35.5-45.6) % MCV (84-94) fl MCH (28-32) pg RDW (13.2-15.2) % [place] % (Auto) (0.0-7.3) % Eos % (Auto) (0.0-4.3) % Baso % (Auto) (0.0-1.8) % Lymph # (1.2-5.4) K/mm3 Sodium (137-145) mmol/L Carbon Dioxide (22-30) mmol/L Calcium (8.4-10.2) mg/dL Magnesium (1.7-2.3) mg/dL Iron 35 L (49-181) ug/dL TIBC 177 L (250-450) mcg/dL Lactate Dehydrogenase (91-180) units/L Vitamin B12 963.5 H (211-911) pg/mL Urine Creatinine 62.0 H (0.1-20.0) mg/dL Urine Total Protein < 4 L (5-11.8) mg/dL 12/14/16 12/14/16 12/14/16 Range/Units 05:40 05:40 05:40 RBC 2.94 L (3.65-5.03) M/mm3 Hgb 7.7 L (11.8-15.2) gm/dl Hct 23.8 L (35.5-45.6) % MCV 81 L (84-94) fl MCH 26 L (28-32) pg RDW 17.7 H (13.2-15.2) % [place] % (Auto) 11.2 H (0.0-7.3) % Eos % (Auto) 5.7 H (0.0-4.3) % Baso % (Auto) 1.9 H (0.0-1.8) % Lymph # 1.0 L (1.2-5.4) K/mm3 Sodium (137-145) mmol/L Carbon Dioxide (22-30) mmol/L Calcium (8.4-10.2) mg/dL Magnesium 1.30 L (1.7-2.3) mg/dL Iron (49-181) ug/dL TIBC (250-450) mcg/dL Lactate Dehydrogenase 87 L (91-180) units/L Vitamin B12 (211-911) pg/mL Urine Creatinine (0.1-20.0) mg/dL Urine Total Protein (5-11.8) mg/dL 12/14/16 Range/Units 05:40 RBC (3.65-5.03) M/mm3 Hgb (11.8-15.2) gm/dl Hct (35.5-45.6) % MCV (84-94) fl MCH (28-32) pg RDW (13.2-15.2) % [place] % (Auto) (0.0-7.3) % Eos % (Auto) (0.0-4.3) % Baso % (Auto) (0.0-1.8) % Lymph # (1.2-5.4) K/mm3 Sodium 134 L (137-145) mmol/L Carbon Dioxide 21 L (22-30) mmol/L Calcium 7.5 L (8.4-10.2) mg/dL Magnesium (1.7-2.3) mg/dL Iron (49-181) ug/dL TIBC (250-450) mcg/dL Lactate Dehydrogenase (91-180) units/L Vitamin B12 (211-911) pg/mL Urine Creatinine (0.1-20.0) mg/dL Urine Total Protein (5-11.8) mg/dL Microbiology 12/12/16 22:46 Peripheral/Venous Blood Culture - Preliminary NO GROWTH AFTER 24 HOURS 12/12/16 22:46 Peripheral/Venous Blood Culture - Preliminary NO GROWTH AFTER 24 HOURS - Imaging and Cardiology Chest x-ray: report reviewed Assessment and Plan - Patient Problems (1) Pneumonia Current Visit: Yes Status: Acute Qualifiers: Pneumonia type: due to unspecified organism Aspiration pneumonia type: A Laterality: bilateral Lung location: upper lobe of lung Qualified Code(s): J18.9 - Pneumonia, unspecified organism Plan to address problem: 1. Send routine bacterial and AFB sputum studies, also serum quantiferon. 2. Screen for HIV infection. 3. Bronchoscopy may be required if there is little yield from sputum cultures.
--- NOTE | 2016-12-14 09:32 | Consultation ---
History of Present Illness Consult date: 12/14/16 Requesting physician: CHRISTIAN VILA Reason for consult: other (hemooptysis) History of present illness: 56 y/o male with hemoptysis for the last 2 months. Was incarcerated before but patient states this was about 2 years ago and he had a TB skin test that was negative. No sick contacts. No recent travel. Does not smoke. No family at bedside. Coughing up thick dark brown sputum with some blood tinge to it. Past History Past Medical History: anemia, liver disease, other (gouty arthritis.) Past Surgical History: No surgical history Social history: single, lives with family, alcohol abuse. denies: smoking, prescription drug abuse, IV drug use Family history: no significant family history, other (mother - DM, HTN) Medications and Allergies Allergies Allergy/AdvReac Type Severity Reaction Status Date / Time No Known Allergies Allergy Unverified 05/10/13 08:48 Home Medications Medication Instructions Recorded Confirmed Last Taken Type ALBUTEROL Inhaler [ProAir HFA 2 puff IH QID PRN #1 each 12/01/16 12/12/16 Rx Inhaler] 100 MG Allopurinol 100 PO QDAY 12/13/16 12/12/16 History Amlodipine Besylate 10 mg PO DAILY 12/13/16 12/13/16 Unknown History Folic Acid [Folic Acid] 1 mg PO DAILY 12/13/16 12/13/16 Unknown History Hydrochlorothiazide [HCTZ] 50 mg PO DAILY 12/13/16 12/13/16 Unknown History Indomethacin 25 mg PO TID 12/13/16 12/13/16 Unknown History Levofloxacin [Levaquin] 750 mg PO QDAY MDD 100 mg 12/13/16 12/13/16 12/12/16 History Thiamine [Vitamin B-1] 100 mg PO QDAY 12/13/16 12/13/16 Unknown History Vitamin B-12 1,000 mcg PO DAILY 12/13/16 12/13/16 Unknown History Active Meds: Active Medications Acetaminophen (Tylenol) 650 mg PO Q4H PRN PRN Reason: For Pain/Fever/Headache Last Admin: 12/13/16 13:14 Dose: 650 mg Acetaminophen/Hydrocodone Bitart ([place] 5/325) 1 each PO Q6H PRN PRN Reason: Pain, Moderate (4-6) Last Admin: 12/14/16 06:04 Dose: 1 each Enoxaparin Sodium (Lovenox) 40 mg SUB-Q QDAY@2200 [facility] Folic Acid (Folvite) 1 mg PO QDAY [facility] Guaifenesin (Robitussin) 200 mg PO Q4H PRN PRN Reason: Cough Azithromycin 500 mg/ Sodium (Chloride) 250 mls @ 250 mls/hr IV Q24HR [facility] Last Admin: 12/13/16 12:46 Dose: 250 mls/hr Ceftriaxone Sodium (Rocephin/Ns 1 Gm/50 Ml) 1 gm in 50 mls @ 100 mls/hr IV Q24HR [facility] PRN Reason: Protocol Last Admin: 12/13/16 11:29 Dose: 100 mls/hr Sodium Chloride (Nacl 0.9% 1000 Ml) 1,000 mls @ 100 mls/hr IV DIRECT [facility] Last Admin: 12/14/16 06:17 Dose: 100 mls/hr Thiamine HCl 100 mg/ Sodium (Chloride) 51 mls @ 100 mls/hr IV QDAY [facility] Multivitamins/Minerals (Theragran-M Tab) 1 each PO QDAY [facility] Ondansetron HCl (Zofran) 4 mg IV Q8H PRN PRN Reason: Nausea And Vomiting Review of Systems All systems: negative Physical Examination Vital signs: Vital Signs Temp Pulse Resp BP Pulse Ox 98.0 F 96 H 22 107/67 98 12/12/16 14:26 12/12/16 14:26 12/12/16 14:26 12/12/16 14:26 12/12/16 14:26 General appearance: no acute distress, alert ENT: other (poor dentition) Effort: normal Ascultation: Bilateral: rhonchi (upper lobes) Percussion: Bilateral: not dull Tactile fremitus: Bilateral: normal Cardiovascular: regular rate and rhythm Gastrointestinal: normoactive bowel sounds normal mental status, non-focal exam Results - Laboratory Findings CBC and BMP: 12/14/16 05:40 12/15/16 10:44 Abnormal lab findings: Abnormal Labs 12/13/16 12/13/16 12/14/16 07:33 14:30 05:40 RBC Hgb Hct MCV MCH RDW [place] % (Auto) Eos % (Auto) Baso % (Auto) Lymph # Sodium 133 L Chloride 97.7 L Carbon Dioxide 21 L BUN 26 H Creatinine 2.3 H Calcium 7.3 L Magnesium Iron 35 L TIBC 177 L Lactate Dehydrogenase Vitamin B12 Urine Creatinine 62.0 H Urine Total Protein < 4 L 12/14/16 12/14/16 12/14/16 05:40 05:40 05:40 RBC Hgb Hct MCV MCH RDW [place] % (Auto) Eos % (Auto) Baso % (Auto) Lymph # Sodium Chloride Carbon Dioxide BUN Creatinine Calcium Magnesium 1.30 L Iron TIBC Lactate Dehydrogenase 87 L Vitamin B12 963.5 H Urine Creatinine Urine Total Protein 12/14/16 12/14/16 05:40 05:40 RBC 2.94 L Hgb 7.7 L Hct 23.8 L MCV 81 L MCH 26 L RDW 17.7 H [place] % (Auto) 11.2 H Eos % (Auto) 5.7 H Baso % (Auto) 1.9 H Lymph # 1.0 L Sodium 134 L Chloride Carbon Dioxide 21 L BUN Creatinine Calcium 7.5 L Magnesium Iron TIBC Lactate Dehydrogenase Vitamin B12 Urine Creatinine Urine Total Protein - Diagnostic Findings Chest x-ray: image reviewed (right upper and leftt upper lobe disease, left upper lobe disease is new.) Assessment and Plan 56 y/o male with bilateral upper lobe disease and hemoptysis 1. Needs bronch 2. Will discuss with patient 3. Agree with IV abx therapy 4. Follow up renal recs 5. Consider repeat TB vs quantiferon gold testing
--- NOTE | 2016-12-14 09:32 | Progress Note ---
Assessment and Plan - Patient Problems (1) ARF (acute renal failure) Current Visit: Yes Status: Acute Qualifiers: Acute renal failure type: A Plan to address problem: Acute kidney injury possibly due to pre-renal azotemia. To rule out acute pulmonary renal syndrom/glomerulonephritis in the setting of acute hemoptysis and AKILAH. However ua shows no evidence of hematuria/also no significant proteinuria seen. Less likely acute GN. awaiting C3,C4, TOBY, ANCA, Anti GBM. Renal function improving on IVF with Cr down to 1.4mg/dl. Cont NS 75ml/hr cont supportive care for AKILAH, avoid nephrotoxins, NSAIDs, IV contrast Will monitor lytes and renal paramters closely and make further recommendations (2) Pulmonary-renal syndrome Current Visit: Yes Status: Acute Plan to address problem: work up as above. pt on resp isolation to rule out TB (3) Hemoptysis Current Visit: Yes Status: Acute Plan to address problem: rule out TB, acute pulmonary - renal syndrome. follow pulmonary recs (4) Metabolic acidosis Current Visit: Yes Status: Acute Plan to address problem: nonAG met acidosis in the setting of AKILAH. if serum bicarb continues to decline will start Na Bicarb (5) Pneumonia Current Visit: Yes Status: Acute Qualifiers: Pneumonia type: due to unspecified organism Aspiration pneumonia type: A Laterality: bilateral Lung location: upper lobe of lung Qualified Code(s): J18.9 - Pneumonia, unspecified organism Plan to address problem: on ceftriaxone, azithromycin for community acquired PNA (6) Anemia Current Visit: No Status: Acute Qualifiers: Anemia type: A Iron deficiency anemia type: I Vitamin B12 deficiency anemia type: V Folate deficiency anemia type: F Bone marrow failure anemia type: B Hemolytic anemia type: H Other causes of anemia: chronic disease, other Chronic kidney disease stage: C Qualified Code(s): D63.8 - Anemia in other chronic diseases classified elsewhere Plan to address problem: likely due to hemoptysis, follow serial CBC, transfuse for hb < 7 (7) Hypokalemia Onset Date: 11/06/15 Current Visit: No Status: Acute Plan to address problem: resolved with KCL supplementation (8) Hyponatremia Onset Date: 11/09/15 Current Visit: No Status: Acute Plan to address problem: likely hypovolemic nature. underlying SIADH acute pulmonary pathology possible. na improving on IV NS. Subjective Date of service: 12/14/16 Principal diagnosis: pneumonia/AKILAH Interval history: pt awake, alert, in NAD. reports improving hemoptysis Objective - Vital Signs Vital signs: Vital Signs - 12hr 12/13/16 12/13/16 12/14/16 22:00 23:40 04:00 Temperature 98.3 F Pulse Rate [ 83 83 Left Radial] Respiratory 20 20 Rate Blood Pressure 118/69 [Left Arm] O2 Sat by Pulse 99 99 99 Oximetry 12/14/16 12/14/16 07:00 07:22 Temperature 98.2 F Pulse Rate [ 72 Left Radial] Respiratory 20 Rate Blood Pressure 122/70 [Left Arm] O2 Sat by Pulse 98 99 Oximetry - General Appearance General appearance: well-developed, well-nourished, appears stated age EENT: ATNC, PERRL, mucous membranes moist Neck: no JVD Respiratory: Present: Clear to Ascultation Cardiology: regular, S1S2 Gastrointestinal: normal, normoactive bowel sounds Integumentary: no rash, other Neurologic: no focal deficit, alert and oriented x3, strength 5/5, CN 3-12 intact Psychiatric: mood/affect appropriate, cooperative - Lab 12/14/16 05:40 12/14/16 05:40 Most recent lab results Calcium 7.5 mg/dL (8.4-10.2) L 12/14/16 05:40 Magnesium 1.30 mg/dL (1.7-2.3) L 12/14/16 05:40 Urine Creatinine 62.0 mg/dL (0.1-20.0) H 12/13/16 14:30 Urine Sodium 48 mEq/L 12/13/16 14:30 Urine Total Protein < 4 mg/dL (5-11.8) L 12/13/16 14:30
--- NOTE | 2016-12-14 09:58 | Query- Pneumonia Documented ---
Dear ___Ernieuisamantha Date:__12/14/2016 Warp Placer/CDS:___Allie Phone#:[phone] Exercise your independent professional judgment when responding to query. Questions asked do not imply a particular answer is desired or expected. We greatly appreciate your clarification on this issue. Clinical Documentation States: 56 Year old male was admitted on 12/12/16. The Nephrology Progress note on 12/14/2016 states "(5) Pneumonia Current Visit: Yes Status: Acute Qualifiers: Pneumonia type: due to unspecified organism Aspiration pneumonia type: A Laterality: bilateral Lung location: upper lobe of lung Qualified Code(s): J18.9 - Pneumonia, unspecified organism Plan to address problem: on ceftriaxone, azithromycin for community acquired PNA." The consult note on 12/13/16 states "he is well known to me in the office. presented to [facility] for the second time in 2weeks for PNA. this is a recurrent PNA , after the first large one was treated with ABX oral by ER. This time, Chest imaging suspecting TB, hence the Isolation. His hemoptysis is probably due to the recurrent PNA, perhaps strep PNA.He is a known Alcoholic, and this may even be Klebsiella , or even the TB." The hospitalist progress note on 12/14/16 states "Pneumonia * chest x-ray appreciated left opacity in the upper lobe. * Continue abx, avoid quinolones in light of suspected TB * continue airborne isolation, AFB x3, ID and pulmonary consult * continue empiric antibiotics." Please further specify known or suspected Etiology: [ ] Aspiration Pneumonia [ ] Gram Negative Pneumonia [ ] Gram Positive Pneumonia [ ] Pseudomonas Pneumonia [ ] MRSA - related Pneumonia [ ] Viral Pneumonia [ ] Candidal Pneumonia [ ] Other: [x ] Unable to determine, Suspect Gram positive, vs Gram neg vs TB-Atypical, awaiting bronch for speciation Present on Admission: [ x] Yes (Y) [ ] Clinically undeterminable (W) [ ] No (N) Please also document response in your Progress Notes and/or Discharge Summary and indicate if the condition was present on admission. MTDD
[2016-12-14] MEDS: THERAGRAN-M Tab PO SCH (11:38)
[2016-12-14 11:39] LABS: HIV-1 Antigen p24 Non React (Non React); HIVR-1/2 Ab Non React (Non React)
[2016-12-14] MEDS: ROCEPHIN/NS 1 GM/50 ML 1 GM/50 ML BAG IV SCH (11:39)
[2016-12-14] MEDS: FOLVITE PO SCH (11:39)
[2016-12-14] MEDS: VITAMIN B-1 100 MG in NACL 0.9% 50 ML IV SCH (11:40)
[2016-12-14] MEDS: ZITHROMAX 500 MG in NACL 0.9% 250ML 250 ML IV SCH (11:40)
[2016-12-14 11:55] LABS: INR 1.21 (0.87-1.13)
[2016-12-14 11:56] LABS: Partial Thromboplastin Time 40.4 Sec. (24.2-36.6)
[2016-12-14] MEDS: INDOCIN PO SCH ×2 (15:14→21:57)
[2016-12-14] MEDS: MIRALAX 3350 PO SCH ×2 (17:06→21:57)
[2016-12-14 20:02] LABS: Myeloperoxidase Antibody <1.0 AI (<1.0)
[2016-12-14] MEDS ORDERED: MAGNESIUM SULFATE IV ONE (21:19)
[2016-12-14] MEDS ORDERED: NACL 0.9% IV ONE ×2 (21:21→22:26)
[2016-12-14] MEDS ORDERED: INFED IV ONE ×2 (21:21→22:26)
[2016-12-14] MEDS ORDERED: MAGNESIUM SULFATE 2GM/50ML 2 GM/50 ML BAG IV ONE (21:30)
--- NOTE | 2016-12-14 21:35 | Consultation ---
History of Present Illness - Reason for Consult Consult date: 12/14/16 - History of Present Illness Patient seen /examined, labs reviewed, pls see orders. Family at the bed side, case d/w both.Have rec if patient positive, they will have to get tested..Iron low, Mg+ low, and both to be replaced. Past History Past Medical History: anemia, liver disease, other (gouty arthritis.) Past Surgical History: No surgical history Social history: single, lives with family, alcohol abuse. denies: smoking, prescription drug abuse, IV drug use Family history: no significant family history, other (mother - DM, HTN) Medications and Allergies Allergies Allergy/AdvReac Type Severity Reaction Status Date / Time No Known Allergies Allergy Unverified 05/10/13 08:48 Home Medications Medication Instructions Recorded Confirmed Last Taken Type ALBUTEROL Inhaler [ProAir HFA 2 puff IH QID PRN #1 each 12/01/16 12/12/16 Rx Inhaler] 100 MG Allopurinol 100 PO QDAY 12/13/16 12/12/16 History Amlodipine Besylate 10 mg PO DAILY 12/13/16 12/13/16 Unknown History Folic Acid [Folic Acid] 1 mg PO DAILY 12/13/16 12/13/16 Unknown History Hydrochlorothiazide [HCTZ] 50 mg PO DAILY 12/13/16 12/13/16 Unknown History Indomethacin 25 mg PO TID 12/13/16 12/13/16 Unknown History Levofloxacin [Levaquin] 750 mg PO QDAY MDD 100 mg 12/13/16 12/13/16 12/12/16 History Thiamine [Vitamin B-1] 100 mg PO QDAY 12/13/16 12/13/16 Unknown History Vitamin B-12 1,000 mcg PO DAILY 12/13/16 12/13/16 Unknown History Active Meds: Active Medications Acetaminophen (Tylenol) 650 mg PO Q4H PRN PRN Reason: For Pain/Fever/Headache Last Admin: 12/13/16 13:14 Dose: 650 mg Acetaminophen/Hydrocodone Bitart ([place] 5/325) 1 each PO Q6H PRN PRN Reason: Pain, Moderate (4-6) Last Admin: 12/14/16 12:39 Dose: 1 each Enoxaparin Sodium (Lovenox) 40 mg SUB-Q QDAY@2200 LESLI Folic Acid (Folvite) 1 mg PO QDAY [facility] Last Admin: 12/14/16 11:39 Dose: 1 mg Guaifenesin (Robitussin) 200 mg PO Q4H PRN PRN Reason: Cough Azithromycin 500 mg/ Sodium (Chloride) 250 mls @ 250 mls/hr IV Q24HR [facility] Last Admin: 12/14/16 11:40 Dose: 250 mls/hr Ceftriaxone Sodium (Rocephin/Ns 1 Gm/50 Ml) 1 gm in 50 mls @ 100 mls/hr IV Q24HR LESLI PRN Reason: Protocol Last Admin: 12/14/16 11:39 Dose: 100 mls/hr Sodium Chloride (Nacl 0.9% 1000 Ml) 1,000 mls @ 100 mls/hr IV DIRECT [facility] Last Admin: 12/14/16 06:17 Dose: 100 mls/hr Thiamine HCl 100 mg/ Sodium (Chloride) 51 mls @ 100 mls/hr IV QDAY [facility] Stop: 12/16/16 12:59 Last Admin: 12/14/16 11:40 Dose: 100 mls/hr Magnesium Sulfate (Magnesium Sulfate 2gm/50ml) 2 gm in 50 mls @ 50 mls/hr IV ONCE ONE Stop: 12/14/16 22:29 Indomethacin (Indocin) 25 mg PO Q8HR [facility] Stop: 12/16/16 23:59 Last Admin: 12/14/16 15:14 Dose: 25 mg Multivitamins/Minerals (Theragran-M Tab) 1 each PO QDAY [facility] Last Admin: 12/14/16 11:38 Dose: 1 each Ondansetron HCl (Zofran) 4 mg IV Q8H PRN PRN Reason: Nausea And Vomiting Polyethylene Glycol (Miralax 3350) 17 gm PO BID [facility] Last Admin: 12/14/16 17:06 Dose: 17 gm Thiamine HCl (Vitamin B-1) 100 mg PO QDAY [facility] Review of Systems Constitutional: weight loss Respiratory: cough with sputum, hemoptysis Exam - Constitutional Vitals: Temp Pulse Resp BP Pulse Ox 97.6 F 75 19 104/68 99 12/14/16 16:00 12/14/16 16:00 12/14/16 16:00 12/14/16 16:00 12/14/16 10:00 General appearance: Present: mild distress - EENT Eyes: Present: PERRL ENT: hearing intact, clear oral mucosa - Neck Neck: Present: supple, normal ROM - Respiratory Respiratory: bilateral: rhonchi - Cardiovascular Heart Sounds: Present: S1 & S2. Absent: rub, click - Extremities Extremities: pulses symmetrical, No edema Peripheral Pulses: within normal limits - Abdominal General gastrointestinal: Present: soft, non-tender, non-distended, normal bowel sounds Male genitourinary: Present: deferred - Rectal Rectal Exam: deferred - Integumentary Integumentary: Present: clear, warm, dry - Musculoskeletal Musculoskeletal: gait normal, strength equal bilaterally - Psychiatric Psychiatric: appropriate mood/affect, intact judgment & insight - Neurologic Neurologic: CNII-XII intact, moves all extremities Results - Labs CBC & Chem 7: 12/14/16 05:40 12/14/16 05:40 Labs: Abnormal lab results 12/14/16 12/14/16 12/14/16 Range/Units 05:40 05:40 05:40 RBC (3.65-5.03) M/mm3 Hgb (11.8-15.2) gm/dl Hct (35.5-45.6) % MCV (84-94) fl MCH (28-32) pg RDW (13.2-15.2) % [place] % (Auto) (0.0-7.3) % Eos % (Auto) (0.0-4.3) % Baso % (Auto) (0.0-1.8) % Lymph # (1.2-5.4) K/mm3 PT (12.2-14.9) Sec. INR (0.87-1.13) APTT (24.2-36.6) Sec. Sodium (137-145) mmol/L Carbon Dioxide (22-30) mmol/L Calcium (8.4-10.2) mg/dL Magnesium 1.30 L (1.7-2.3) mg/dL Iron 35 L (49-181) ug/dL TIBC 177 L (250-450) mcg/dL Lactate Dehydrogenase (91-180) units/L Vitamin B12 963.5 H (211-911) pg/mL 12/14/16 12/14/16 12/14/16 Range/Units 05:40 05:40 05:40 RBC 2.94 L (3.65-5.03) M/mm3 Hgb 7.7 L (11.8-15.2) gm/dl Hct 23.8 L (35.5-45.6) % MCV 81 L (84-94) fl MCH 26 L (28-32) pg RDW 17.7 H (13.2-15.2) % [place] % (Auto) 11.2 H (0.0-7.3) % Eos % (Auto) 5.7 H (0.0-4.3) % Baso % (Auto) 1.9 H (0.0-1.8) % Lymph # 1.0 L (1.2-5.4) K/mm3 PT (12.2-14.9) Sec. INR (0.87-1.13) APTT (24.2-36.6) Sec. Sodium 134 L (137-145) mmol/L Carbon Dioxide 21 L (22-30) mmol/L Calcium 7.5 L (8.4-10.2) mg/dL Magnesium (1.7-2.3) mg/dL Iron (49-181) ug/dL TIBC (250-450) mcg/dL Lactate Dehydrogenase 87 L (91-180) units/L Vitamin B12 (211-911) pg/mL 12/14/16 Range/Units 11:15 RBC (3.65-5.03) M/mm3 Hgb (11.8-15.2) gm/dl Hct (35.5-45.6) % MCV (84-94) fl MCH (28-32) pg RDW (13.2-15.2) % [place] % (Auto) (0.0-7.3) % Eos % (Auto) (0.0-4.3) % Baso % (Auto) (0.0-1.8) % Lymph # (1.2-5.4) K/mm3 PT 15.9 H (12.2-14.9) Sec. INR 1.21 H (0.87-1.13) APTT 40.4 H (24.2-36.6) Sec. Sodium (137-145) mmol/L Carbon Dioxide (22-30) mmol/L Calcium (8.4-10.2) mg/dL Magnesium (1.7-2.3) mg/dL Iron (49-181) ug/dL TIBC (250-450) mcg/dL Lactate Dehydrogenase (91-180) units/L Vitamin B12 (211-911) pg/mL Assessment and Plan - Patient Problems (1) ARF (acute renal failure) Current Visit: Yes Status: Acute Qualifiers: Acute renal failure type: A Plan to address problem: Follow renal. (2) Hemoptysis Current Visit: Yes Status: Acute Plan to address problem: follow ID/Pulm, awaiting cultures. (3) Pneumonia Current Visit: Yes Status: Acute Qualifiers: Pneumonia type: due to unspecified organism Aspiration pneumonia type: A Laterality: bilateral Lung location: upper lobe of lung Qualified Code(s): J18.9 - Pneumonia, unspecified organism Plan to address problem: follow pulm. (4) Alcohol dependence with withdrawal delirium Onset Date: 11/05/15 Current Visit: No Status: Acute (5) Anemia Current Visit: No Status: Acute Qualifiers: Anemia type: A Iron deficiency anemia type: I Vitamin B12 deficiency anemia type: V Folate deficiency anemia type: F Bone marrow failure anemia type: B Hemolytic anemia type: H Other causes of anemia: chronic disease, other Chronic kidney disease stage: C Qualified Code(s): D63.8 - Anemia in other chronic diseases classified elsewhere Plan to address problem: Iron replacement, for now, transfusion later if indicated.
[2016-12-14] MEDS: LOVENOX SUB-Q SCH (21:57)
[2016-12-14] MEDS: PEPCID PO SCH (22:19)
[2016-12-14] MEDS: BENADRYL IV SCH (22:20)
[2016-12-14] MEDS: TYLENOL PO SCH (23:42)
[2016-12-15] MEDS: INDOCIN PO SCH ×3 (06:33→23:00)
--- NOTE | 2016-12-15 08:22 | Progress Note ---
Assessment and Plan Assessment and plan: 56M who presents with fever, weight loss and hemptysis. ARF (acute renal failure)/vasomotor nephropathy * resolved with IV fluids * Nephrology input appreciated * Avoid nephrotoxins Pneumonia * chest x-ray appreciated left opacity in the upper lobe. * Continue abx, avoid quinolones in light of suspected TB * continue airborne isolation, AFB x3, ID and pulmonary consult appreciated * continue empiric antibiotics * send serum quantiferon. * HIV screen was negative on 12/14/16 * Bronchoscopy tomorrow, NPO after midnight Hypertension * well controlled, continue current medications Anemia of chronic disease * TIBC is low * Hg has dropped from 9 to 7 with IV hydration * denies GI blood loss * transfuse to keep Hg above 7 DVT prophylaxis Lovenox History Interval history: Continues to have cough productive of blood-tinged sputum, low-grade fevers. Feels weak and tired. Complaining of arthralgias all over his body. Denies melena or blood per rectum Hospitalist Physical - Physical exam Narrative exam: General: Patient appears well in no distress HEENT: MMM, EOMI cardiac: S1-S2 heard lungs: clear to auscultation, abdomen: soft, nontender, nondistended bowel sounds positive extremities: no edema clubbing or cyanosis Skin: no rash or lesion Neuro: no focal deficit Psych: appropriate behavior and mood, cognition intact - Constitutional Vitals: Temp Pulse Resp BP Pulse Ox 98.7 F 71 20 153/78 98 12/14/16 23:50 12/14/16 23:50 12/15/16 04:00 12/14/16 23:50 12/15/16 04:00 General appearance: Present: mild distress Results - Labs CBC & Chem 7: 12/14/16 05:40 12/15/16 10:44 Labs: Laboratory Last Values WBC 5.7 K/mm3 (4.5-11.0) 12/14/16 05:40 RBC 2.94 M/mm3 (3.65-5.03) L 12/14/16 05:40 Hgb 7.7 gm/dl (11.8-15.2) L 12/14/16 05:40 Hct 23.8 % (35.5-45.6) L 12/14/16 05:40 MCV 81 fl (84-94) L 12/14/16 05:40 MCH 26 pg (28-32) L 12/14/16 05:40 MCHC 32 % (32-34) 12/14/16 05:40 RDW 17.7 % (13.2-15.2) H 12/14/16 05:40 Plt Count 266 K/mm3 (140-440) 12/14/16 05:40 Lymph % (Auto) 18.5 % (13.4-35.0) 12/14/16 05:40 [place] % (Auto) 11.2 % (0.0-7.3) H 12/14/16 05:40 Eos % (Auto) 5.7 % (0.0-4.3) H 12/14/16 05:40 Baso % (Auto) 1.9 % (0.0-1.8) H 12/14/16 05:40 Lymph # 1.0 K/mm3 (1.2-5.4) L 12/14/16 05:40 [place] # 0.6 K/mm3 (0.0-0.8) 12/14/16 05:40 Eos # 0.3 K/mm3 (0.0-0.4) 12/14/16 05:40 Baso # 0.1 K/mm3 (0.0-0.1) 12/14/16 05:40 Seg Neutrophils % 62.7 % (40.0-70.0) 12/14/16 05:40 Seg Neutrophils # 3.6 K/mm3 (1.8-7.7) 12/14/16 05:40 ESR > 140.0 mm/Hr (0-20) 12/14/16 05:40 PT 15.9 Sec. (12.2-14.9) H 12/14/16 11:15 INR 1.21 (0.87-1.13) H 12/14/16 11:15 APTT 40.4 Sec. (24.2-36.6) H 12/14/16 11:15 Sodium 134 mmol/L (137-145) L 12/14/16 05:40 Potassium 4.0 mmol/L (3.6-5.0) 12/14/16 05:40 Chloride 102.4 mmol/L (98-107) 12/14/16 05:40 Carbon Dioxide 21 mmol/L (22-30) L 12/14/16 05:40 Anion Gap 15 mmol/L 12/14/16 05:40 BUN 19 mg/dL (9-20) 12/14/16 05:40 Creatinine 1.4 mg/dL (0.8-1.5) 12/14/16 05:40 Estimated GFR > 60 ml/min 12/14/16 05:40 BUN/Creatinine Ratio 13.57 % 12/14/16 05:40 Glucose 84 mg/dL (75-100) 12/14/16 05:40 Calcium 7.5 mg/dL (8.4-10.2) L 12/14/16 05:40 Magnesium 1.30 mg/dL (1.7-2.3) L 12/14/16 05:40 Iron 35 ug/dL (49-181) L 12/14/16 05:40 TIBC 177 mcg/dL (250-450) L 12/14/16 05:40 Ferritin 156.1 ng/mL (13.0-400.0) 12/14/16 05:40 Lactate Dehydrogenase 87 units/L (91-180) L 12/14/16 05:40 Troponin T < 0.010 ng/mL (0.00-0.029) 12/13/16 13:25 Vitamin B12 963.5 pg/mL (211-911) H 12/14/16 05:40 Urine Color Straw (Yellow) 12/13/16 14:30 Urine Turbidity Clear (Clear) 12/13/16 14:30 Urine pH 6.0 (5.0-7.0) 12/13/16 14:30 Ur Specific [place] 1.006 (1.003-1.030) 12/13/16 14:30 Urine Protein <15 mg/dl mg/dL (Negative) 12/13/16 14:30 Urine Glucose (UA) Neg mg/dL (Negative) 12/13/16 14:30 Urine Ketones Neg mg/dL (Negative) 12/13/16 14:30 Urine Blood Neg (Negative) 12/13/16 14:30 Urine Nitrite Neg (Negative) 12/13/16 14:30 Urine Bilirubin Neg (Negative) 12/13/16 14:30 Urine Urobilinogen < 2.0 mg/dL (<2.0) 12/13/16 14:30 Ur Leukocyte Esterase Neg (Negative) 12/13/16 14:30 Urine WBC (Auto) < 1.0 /HPF (0.0-6.0) 12/13/16 14:30 Urine RBC (Auto) < 1.0 /HPF (0.0-6.0) 12/13/16 14:30 Urine Osmolality 233 Mosm/kg 12/13/16 14:30 Urine Creatinine 62.0 mg/dL (0.1-20.0) H 12/13/16 14:30 Urine Sodium 48 mEq/L 12/13/16 14:30 Urine Total Protein < 4 mg/dL (5-11.8) L 12/13/16 14:30 Proteinase 3 (PR3) Ab <1.0 AI (<1.0) 12/13/16 10:23 Myeloperoxidase Ab <1.0 AI (<1.0) 12/13/16 10:23 Glomerular Base Mem IgG <1.0 AI (<1.0) 12/13/16 10:23 Complement C3 147 mg/dL (90-180) 12/13/16 10:23 Complement C4 22 mg/dL (16-47) 12/13/16 10:23 HIV 1&2 Antibody Rapid Non react (Non React) 12/14/16 09:17 HIV P24 Antigen Non react (Non React) 12/14/16 09:17
--- NOTE | 2016-12-15 08:38 | Progress Note ---
Assessment and Plan - Patient Problems (1) Pneumonia Current Visit: Yes Status: Acute Qualifiers: Pneumonia type: due to unspecified organism Aspiration pneumonia type: A Laterality: bilateral Lung location: upper lobe of lung Qualified Code(s): J18.9 - Pneumonia, unspecified organism Plan to address problem: 1. Continue current empiric CAP regimen. Gram positive cocci pairs and Gram negative rods on sputum culture. 2. Await results of AFB studies, quantiferon, etc. 3. Continue airborne isolation. Subjective Date of service: 12/15/16 Principal diagnosis: pneumonia/AKILAH Interval history: Afebrile. Says his cough and sputum production are "a whole lot better". Limited hemoptysis. Objective - Constitutional Vitals: Vital Signs Temp Pulse Resp BP Pulse Ox 98.6 F 82 20 138/78 95 12/15/16 08:00 12/15/16 08:00 12/15/16 08:00 12/15/16 08:00 12/15/16 08:00 Temperature -Last 24 Hours Temperature 98.6 F Temperature 98.7 F Temperature 97.6 F General appearance: Present: no acute distress, well-nourished - EENT Eyes: no scleral icterus, no conjunctival injection - Neck Neck: supple - Respiratory Respiratory effort: normal Respiratory: bilateral: CTA, negative: rales, rhonchi - Cardiovascular Rhythm: regular Heart Sounds: Present: S1 & S2 Extremities: No edema - Gastrointestinal General gastrointestinal: Present: soft, non-tender, non-distended - Integumentary Integumentary: clear, no rash - Neurologic Neurologic: no focal deficits, moves all extremities - Psychiatric Psychiatric: appropriate mood/affect - Labs CBC & Chem 7: 12/14/16 05:40 12/15/16 10:44 Labs: Abnormal lab results 12/14/16 Range/Units 11:15 PT 15.9 H (12.2-14.9) Sec. INR 1.21 H (0.87-1.13) APTT 40.4 H (24.2-36.6) Sec. Microbiology 12/14/16 Unknown Sputum - Expectorated Sputum Sputum Culture - Preliminary 12/12/16 22:46 Peripheral/Venous Blood Culture - Preliminary NO GROWTH AFTER 48 HOURS 12/12/16 22:46 Peripheral/Venous Blood Culture - Preliminary NO GROWTH AFTER 48 HOURS
[2016-12-15] MEDS ORDERED: MAGNESIUM SULFATE 2GM/50ML 2 GM/50 ML BAG IV ONE ×2 (09:00→12:00)
[2016-12-15] MEDS: VITAMIN B-1 100 MG in NACL 0.9% 50 ML IV SCH (11:09)
[2016-12-15 11:13] LABS: Anion Gap 16 mmol/L; Blood Urea Nitrogen 11 mg/dL (9-20); Calcium 7.1 mg/dL (8.4-10.2); Carbon Dioxide 19 mmol/L (22-30); Chloride 104.4 mmol/L (98-107); Glucose 103 mg/dL (75-100); Potassium 4.4 mmol/L (3.6-5.0); Sodium 135 mmol/L (137-145)
--- NOTE | 2016-12-15 11:29 | Progress Note ---
Assessment and Plan - Patient Problems (1) ARF (acute renal failure) Current Visit: Yes Status: Acute Qualifiers: Acute renal failure type: A Plan to address problem: Acute kidney injury possibly due to pre-renal azotemia. To rule out acute pulmonary renal syndrom/glomerulonephritis in the setting of acute hemoptysis and AKILAH. However ua shows no evidence of hematuria/also no significant proteinuria seen. C3,C4 normal, TOBY, ANCA, Anti GBM all negative/ no evidence of acute GN Renal function improving on IVF. given developing hyperchloremic met acidosis, will d/c IV NS cont supportive care for AKILAH, avoid nephrotoxins, NSAIDs, IV contrast Will monitor lytes and renal paramters closely and make further recommendations (2) Hemoptysis Current Visit: Yes Status: Acute Plan to address problem: rule out TB. follow pulmonary recs (3) Metabolic acidosis Current Visit: Yes Status: Acute Plan to address problem: nonAG met acidosis, will d/c NS (4) Pneumonia Current Visit: Yes Status: Acute Qualifiers: Pneumonia type: due to unspecified organism Aspiration pneumonia type: A Laterality: bilateral Lung location: upper lobe of lung Qualified Code(s): J18.9 - Pneumonia, unspecified organism Plan to address problem: on ceftriaxone, azithromycin for community acquired PNA (5) Anemia Current Visit: No Status: Acute Qualifiers: Anemia type: A Iron deficiency anemia type: I Vitamin B12 deficiency anemia type: V Folate deficiency anemia type: F Bone marrow failure anemia type: B Hemolytic anemia type: H Other causes of anemia: chronic disease, other Chronic kidney disease stage: C Qualified Code(s): D63.8 - Anemia in other chronic diseases classified elsewhere Plan to address problem: likely due to hemoptysis, follow serial CBC, transfuse for hb < 7 (6) Hypokalemia Onset Date: 11/06/15 Current Visit: No Status: Acute Plan to address problem: hypomagnesemia contributing, resolved with KCL/Mg supplementation (7) Hyponatremia Onset Date: 11/09/15 Current Visit: No Status: Acute Plan to address problem: likely hypovolemic nature. underlying SIADH acute pulmonary pathology possible. na improved with NS Subjective Date of service: 12/15/16 Principal diagnosis: pneumonia/AKILAH Interval history: pt awake, alert, in NAD. Objective - Vital Signs Vital signs: Vital Signs - 12hr 12/14/16 12/15/16 12/15/16 23:50 04:00 08:00 Temperature 98.7 F 98.6 F Pulse Rate [ 71 82 Left Radial] Respiratory 20 20 20 Rate Blood Pressure 153/78 138/78 [Left Arm] O2 Sat by Pulse 98 98 95 Oximetry 12/15/16 10:00 Temperature Pulse Rate [ Left Radial] Respiratory Rate Blood Pressure [Left Arm] O2 Sat by Pulse 97 Oximetry - General Appearance General appearance: well-developed, well-nourished, appears stated age EENT: ATNC, PERRL, mucous membranes moist Neck: no JVD Respiratory: Present: Clear to Ascultation Cardiology: regular, S1S2 Gastrointestinal: normal, normoactive bowel sounds Integumentary: no rash, other (no edema ) Neurologic: no focal deficit, alert and oriented x3, strength 5/5, CN 3-12 intact Psychiatric: mood/affect appropriate, cooperative - Lab 12/14/16 05:40 12/15/16 10:44 Most recent lab results Calcium 7.1 mg/dL (8.4-10.2) L 12/15/16 10:44 Magnesium 1.30 mg/dL (1.7-2.3) L 12/15/16 10:44 Urine Creatinine 62.0 mg/dL (0.1-20.0) H 12/13/16 14:30 Urine Sodium 48 mEq/L 12/13/16 14:30 Urine Total Protein < 4 mg/dL (5-11.8) L 12/13/16 14:30
[2016-12-15] MEDS: NACL 0.9% 1000 ML 1,000 ML IV SCH (11:34)
[2016-12-15] MEDS: ROCEPHIN/NS 1 GM/50 ML 1 GM/50 ML BAG IV SCH (11:35)
[2016-12-15] MEDS: VITAMIN B-1 PO SCH (11:38)
[2016-12-15] MEDS: THERAGRAN-M Tab PO SCH (11:39)
[2016-12-15] MEDS: FOLVITE PO SCH (11:39)
[2016-12-15] MEDS: ZITHROMAX PO SCH (11:39)
[2016-12-15] MEDS: MIRALAX 3350 PO SCH ×2 (11:40→23:00)
--- NOTE | 2016-12-15 13:12 | Progress Note ---
Assessment and Plan 56 y/o male with bilateral upper lobe disease and hemoptysis 1. Bronch tomorrow morning 2. NPO after midnight 3. No current indication for biospy but will wait until inside lung. Will check PT/PTT, INR just in case Subjective Date of service: 12/15/16 Principal diagnosis: pneumonia/AKILAH Interval history: Still coughing up same type of sputum Objective Vital Signs - 12hr 12/15/16 12/15/16 12/15/16 04:00 08:00 10:00 Temperature 98.6 F Pulse Rate [ 82 Left Radial] Respiratory 20 20 Rate Blood Pressure 138/78 [Left Arm] O2 Sat by Pulse 98 95 97 Oximetry Constitutional: no acute distress, alert ENT: other (poor dentition) Effort: normal Ascultation: Bilateral: rhonchi (upper lobes) Percussion: Bilateral: not dull Tactile fremitus: Bilateral: normal Cardiovascular: regular rate and rhythm Gastrointestinal: normoactive bowel sounds Neurologic: normal mental status, non-focal exam CBC and BMP: 12/14/16 05:40 12/15/16 10:44 ABG, PT/INR, D-dimer: PT/INR, D-dimer PT 15.9 Sec. (12.2-14.9) H 12/14/16 11:15 INR 1.21 (0.87-1.13) H 12/14/16 11:15 Abnormal lab findings: Abnormal Labs 12/13/16 12/13/16 12/14/16 07:33 14:30 05:40 RBC Hgb Hct MCV MCH RDW [place] % (Auto) Eos % (Auto) Baso % (Auto) Lymph # PT INR APTT Sodium 133 L Chloride 97.7 L Carbon Dioxide 21 L BUN 26 H Creatinine 2.3 H Glucose Calcium 7.3 L Magnesium Iron 35 L TIBC 177 L Lactate Dehydrogenase Vitamin B12 Urine Creatinine 62.0 H Urine Total Protein < 4 L 12/14/16 12/14/16 12/14/16 05:40 05:40 05:40 RBC Hgb Hct MCV MCH RDW [place] % (Auto) Eos % (Auto) Baso % (Auto) Lymph # PT INR APTT Sodium Chloride Carbon Dioxide BUN Creatinine Glucose Calcium Magnesium 1.30 L Iron TIBC Lactate Dehydrogenase 87 L Vitamin B12 963.5 H Urine Creatinine Urine Total Protein 0712/14/16 12/14/16 05:40 05:40 11:15 RBC 2.94 L Hgb 7.7 L Hct 23.8 L MCV 81 L MCH 26 L RDW 17.7 H [place] % (Auto) 11.2 H Eos % (Auto) 5.7 H Baso % (Auto) 1.9 H Lymph # 1.0 L PT 15.9 H INR 1.21 H APTT 40.4 H Sodium 134 L Chloride Carbon Dioxide 21 L BUN Creatinine Glucose Calcium 7.5 L Magnesium Iron TIBC Lactate Dehydrogenase Vitamin B12 Urine Creatinine Urine Total Protein 12/15/16 10:44 RBC Hgb Hct MCV MCH RDW [place] % (Auto) Eos % (Auto) Baso % (Auto) Lymph # PT INR APTT Sodium 135 L Chloride Carbon Dioxide 19 L BUN Creatinine Glucose 103 H Calcium 7.1 L Magnesium 1.30 L Iron TIBC Lactate Dehydrogenase Vitamin B12 Urine Creatinine Urine Total Protein
[2016-12-15] MEDS: NORCO 5/325 PO PRN (16:37)
--- NOTE | 2016-12-15 17:36 | Consultation ---
History of Present Illness - Reason for Consult Consult date: 12/15/16 - History of Present Illness Patient resting in bed, no new issues at this time.sputum culture Gm+ cocci, Gm neg rods, no AFB at this time yet.He is making good urine out put. Past History Past Medical History: anemia, liver disease, other (gouty arthritis.) Past Surgical History: No surgical history Social history: single, lives with family, alcohol abuse. denies: smoking, prescription drug abuse, IV drug use Family history: no significant family history, other (mother - DM, HTN) Medications and Allergies Allergies Allergy/AdvReac Type Severity Reaction Status Date / Time No Known Allergies Allergy Unverified 05/10/13 08:48 Home Medications Medication Instructions Recorded Confirmed Last Taken Type ALBUTEROL Inhaler [ProAir HFA 2 puff IH QID PRN #1 each 12/01/16 12/12/16 Rx Inhaler] 100 MG Allopurinol 100 PO QDAY 12/13/16 12/12/16 History Amlodipine Besylate 10 mg PO DAILY 12/13/16 12/13/16 Unknown History Folic Acid [Folic Acid] 1 mg PO DAILY 12/13/16 12/13/16 Unknown History Hydrochlorothiazide [HCTZ] 50 mg PO DAILY 12/13/16 12/13/16 Unknown History Indomethacin 25 mg PO TID 12/13/16 12/13/16 Unknown History Levofloxacin [Levaquin] 750 mg PO QDAY MDD 100 mg 12/13/16 12/13/16 12/12/16 History Thiamine [Vitamin B-1] 100 mg PO QDAY 12/13/16 12/13/16 Unknown History Vitamin B-12 1,000 mcg PO DAILY 12/13/16 12/13/16 Unknown History Active Meds: Active Medications Acetaminophen (Tylenol) 650 mg PO Q4H PRN PRN Reason: For Pain/Fever/Headache Last Admin: 12/13/16 13:14 Dose: 650 mg Acetaminophen (Tylenol) 650 mg PO ONCE LESLI Stop: 12/16/16 23:00 Acetaminophen/Hydrocodone Bitart ([place] 5/325) 1 each PO Q6H PRN PRN Reason: Pain, Moderate (4-6) Last Admin: 12/15/16 16:37 Dose: 1 each Azithromycin (Zithromax) 500 mg PO QDAY LESLI Last Admin: 12/15/16 11:39 Dose: 500 mg Diphenhydramine HCl (Benadryl) 25 mg IV ONCE [facility] Stop: 12/16/16 23:00 Enoxaparin Sodium (Lovenox) 40 mg SUB-Q QDAY@2200 [facility] Last Admin: 12/14/16 21:57 Dose: 40 mg Famotidine (Pepcid) 20 mg PO ONCE [facility] Stop: 12/16/16 23:00 Folic Acid (Folvite) 1 mg PO QDAY [facility] Last Admin: 12/15/16 11:39 Dose: 1 mg Guaifenesin (Robitussin) 200 mg PO Q4H PRN PRN Reason: Cough Ceftriaxone Sodium (Rocephin/Ns 1 Gm/50 Ml) 1 gm in 50 mls @ 100 mls/hr IV Q24HR [facility] PRN Reason: Protocol Last Admin: 12/15/16 11:35 Dose: 100 mls/hr Iron Dextran 150 mg/ Sodium (Chloride) 253 mls @ 250 mls/hr IV ONCE ONE Stop: 12/16/16 21:00 Indomethacin (Indocin) 25 mg PO Q8HR [facility] Stop: 12/16/16 23:59 Last Admin: 12/15/16 14:23 Dose: 25 mg Multivitamins/Minerals (Theragran-M Tab) 1 each PO QDAY [facility] Last Admin: 12/15/16 11:39 Dose: 1 each Ondansetron HCl (Zofran) 4 mg IV Q8H PRN PRN Reason: Nausea And Vomiting Polyethylene Glycol (Miralax 3350) 17 gm PO BID [facility] Last Admin: 12/15/16 11:40 Dose: 17 gm Thiamine HCl (Vitamin B-1) 100 mg PO QDAY [facility] Last Admin: 12/15/16 11:38 Dose: 100 mg Review of Systems Respiratory: cough with sputum, hemoptysis Exam - Constitutional Vitals: Temp Pulse Resp BP Pulse Ox 99 F 86 18 142/80 97 12/15/16 16:21 12/15/16 16:21 12/15/16 16:21 12/15/16 16:21 12/15/16 16:21 General appearance: Present: mild distress - EENT Eyes: Present: PERRL ENT: hearing intact, clear oral mucosa - Neck Neck: Present: supple, normal ROM - Respiratory Respiratory effort: normal Respiratory: bilateral: CTA - Cardiovascular Heart Sounds: Present: S1 & S2. Absent: rub, click - Extremities Extremities: pulses symmetrical, No edema Peripheral Pulses: within normal limits - Abdominal General gastrointestinal: Present: soft, non-tender, non-distended, normal bowel sounds Male genitourinary: Present: deferred - Rectal Rectal Exam: deferred - Integumentary Integumentary: Present: clear, warm, dry - Musculoskeletal Musculoskeletal: gait normal, strength equal bilaterally - Psychiatric Psychiatric: appropriate mood/affect, intact judgment & insight - Neurologic Neurologic: CNII-XII intact, moves all extremities Results - Labs CBC & Chem 7: 12/14/16 05:40 12/15/16 10:44 Labs: Abnormal lab results 12/15/16 Range/Units 10:44 Sodium 135 L (137-145) mmol/L Carbon Dioxide 19 L (22-30) mmol/L Glucose 103 H (75-100) mg/dL Calcium 7.1 L (8.4-10.2) mg/dL Magnesium 1.30 L (1.7-2.3) mg/dL Assessment and Plan - Patient Problems (1) ARF (acute renal failure) Current Visit: Yes Status: Acute Qualifiers: Acute renal failure type: A Plan to address problem: Follow renal. improved. (2) Hemoptysis Current Visit: Yes Status: Acute Plan to address problem: follow ID/Pulm, awaiting cultures. improved. (3) Pneumonia Current Visit: Yes Status: Acute Qualifiers: Pneumonia type: due to unspecified organism Aspiration pneumonia type: A Laterality: bilateral Lung location: upper lobe of lung Qualified Code(s): J18.9 - Pneumonia, unspecified organism Plan to address problem: follow pulm. (4) Alcohol dependence with withdrawal delirium Onset Date: 11/05/15 Current Visit: No Status: Acute (5) Anemia Current Visit: No Status: Acute Qualifiers: Anemia type: A Iron deficiency anemia type: I Vitamin B12 deficiency anemia type: V Folate deficiency anemia type: F Bone marrow failure anemia type: B Hemolytic anemia type: H Other causes of anemia: chronic disease, other Chronic kidney disease stage: C Qualified Code(s): D63.8 - Anemia in other chronic diseases classified elsewhere Plan to address problem: Iron replacement, for now, transfusion later if indicated.
[2016-12-15] MEDS: ZITHROMAX 500 MG in NACL 0.9% 250ML 250 ML IV SCH (20:13)
[2016-12-15] MEDS: LOVENOX SUB-Q SCH (23:00)
[2016-12-16 06:35] LABS: INR 1.18 (0.87-1.13)
[2016-12-16 06:36] LABS: Partial Thromboplastin Time 41.7 Sec. (24.2-36.6)
[2016-12-16] MEDS: INDOCIN PO SCH ×3 (06:50→23:29)
[2016-12-16] MEDS ORDERED: DIPRIVAN 10 MG/ML IV ONE ×2 (07:36)
[2016-12-16] MEDS ORDERED: VERSED ONE (07:36)
[2016-12-16] MEDS ORDERED: SUBLIMAZE ONE (07:36)
[2016-12-16] MEDS ORDERED: WATER FOR IRRIG STERILE IR ONE (07:40)
[2016-12-16] MEDS ORDERED: HURRICAINE ONE 20% TOPICAL SPRAY MM ×2 (07:41→08:09)
[2016-12-16] MEDS ORDERED: LIDOCAINE VISCOUS 2% ONE ×2 (07:41→08:15)
[2016-12-16] MEDS ORDERED: XYLOCAINE 1% 20 mL ONE (07:41)
--- NOTE | 2016-12-16 07:53 | Anesthesia Consultation ---
Anesthesia Consult and Med Hx Date of service: 12/16/16 - Airway Anesthetic Teeth Evaluation: Good, Chipped (back right molar) ROM Head & Neck: Adequate Mental/Hyoid Distance: Adequate Mallampati Class: Class II Intubation Access Assessment: Probably Good - Pulmonary Exam CTA: Yes - Cardiac Exam Cardiac Exam: RRR - Pre-Operative Health Status ASA Pre-Surgery Classification: ASA3 Proposed Anesthetic Plan: MAC - Pulmonary Hx Smoking: No Hx Asthma: No Hx Respiratory Symptoms: Yes (pneumonia, hemoptysis) SOB: Yes (when attempting to stand) COPD: No Hx Pneumonia: No Hx Sleep Apnea: No - Cardiovascular System Hx Hypertension: Yes - Central Nervous System CVA: Yes (no residual weakness) Hx Psychiatric Problems: No - Gastrointestinal Hx Gastroesophageal Reflux Disease: No - Endocrine Hx End Stage Renal Disease: No Hx Liver Disease: Yes - Other Systems Hx Alcohol Use: Yes (3-5 beers/day) Hx Substance Use: No Hx Cancer: No Hx Obesity: No - Additional Comments Anesthesia Medical History Comments: R/O TB, pneumonia left upper lobe
--- NOTE | 2016-12-16 07:55 | Anesthesia Day of Surgery ---
Anesthesia Day of Surgery - Day of Surgery Patient Examined: Yes Patient H&P Reviewed: Yes Patient is NPO: Yes
--- NOTE | 2016-12-16 08:01 | Progress Note ---
Assessment and Plan 56 y/o male with bilateral upper lobe disease and hemoptysis 1. Bronch today 2. Will check AFB, Fungal and Respiratory cultures. Will send cytology as well. 3. No current indication for biospy but will wait until inside lung. Coags within normal limits. Subjective Date of service: 12/16/16 Principal diagnosis: pneumonia/AKILAH Interval history: Patient in Endo suite, being prepped from bronch. Objective Vital Signs - 12hr 12/15/16 12/15/16 12/15/16 20:39 22:00 23:00 Temperature 98.2 F Pulse Rate Pulse Rate [ 76 76 Left Radial] Respiratory 16 20 Rate Blood Pressure Blood Pressure 139/80 [Left Arm] O2 Sat by Pulse 97 98 Oximetry 12/16/16 12/16/16 07:49 07:53 Temperature 98.5 F 98.5 F Pulse Rate 62 62 Pulse Rate [ Left Radial] Respiratory 16 16 Rate Blood Pressure 159/81 159/81 Blood Pressure [Left Arm] O2 Sat by Pulse 99 99 Oximetry Constitutional: no acute distress, alert ENT: other (poor dentition) Effort: normal Ascultation: Bilateral: rhonchi (upper lobes) Percussion: Bilateral: not dull Tactile fremitus: Bilateral: normal Cardiovascular: regular rate and rhythm Gastrointestinal: normoactive bowel sounds Neurologic: normal mental status, non-focal exam CBC and BMP: 12/14/16 05:40 12/15/16 10:44 ABG, PT/INR, D-dimer: PT/INR, D-dimer PT 14.9 Sec. (12.2-14.9) 12/16/16 06:05 INR 1.18 (0.87-1.13) H 12/16/16 06:05 Abnormal lab findings: Abnormal Labs 12/13/16 12/13/16 12/14/16 07:33 14:30 05:40 RBC Hgb Hct MCV MCH RDW [place] % (Auto) Eos % (Auto) Baso % (Auto) Lymph # PT INR APTT Sodium 133 L Chloride 97.7 L Carbon Dioxide 21 L BUN 26 H Creatinine 2.3 H Glucose Calcium 7.3 L Magnesium Iron 35 L TIBC 177 L Lactate Dehydrogenase Vitamin B12 Urine Creatinine 62.0 H Urine Total Protein < 4 L 12/14/16 12/14/16 12/14/16 05:40 05:40 05:40 RBC Hgb Hct MCV MCH RDW [place] % (Auto) Eos % (Auto) Baso % (Auto) Lymph # PT INR APTT Sodium Chloride Carbon Dioxide BUN Creatinine Glucose Calcium Magnesium 1.30 L Iron TIBC Lactate Dehydrogenase 87 L Vitamin B12 963.5 H Urine Creatinine Urine Total Protein 12/14/16 12/14/16 12/14/16 05:40 05:40 11:15 RBC 2.94 L Hgb 7.7 L Hct 23.8 L MCV 81 L MCH 26 L RDW 17.7 H [place] % (Auto) 11.2 H Eos % (Auto) 5.7 H Baso % (Auto) 1.9 H Lymph # 1.0 L PT 15.9 H INR 1.21 H APTT 40.4 H Sodium 134 L Chloride Carbon Dioxide 21 L BUN Creatinine Glucose Calcium 7.5 L Magnesium Iron TIBC Lactate Dehydrogenase Vitamin B12 Urine Creatinine Urine Total Protein 12/15/16 12/16/16 10:44 06:05 RBC Hgb Hct MCV MCH RDW [place] % (Auto) Eos % (Auto) Baso % (Auto) Lymph # PT INR 1.18 H APTT 41.7 H Sodium 135 L Chloride Carbon Dioxide 19 L BUN Creatinine Glucose 103 H Calcium 7.1 L Magnesium 1.30 L Iron TIBC Lactate Dehydrogenase Vitamin B12 Urine Creatinine Urine Total Protein
[2016-12-16] MEDS ORDERED: LIDOCAINE VISCOUS 2% MM ONE ×4 (08:10→08:14)
[2016-12-16] MEDS: NACL 0.9% 1000 ML 1,000 ML IV SCH (08:13)
[2016-12-16] MEDS ORDERED: XYLOCAINE 1% 20 mL INFILTRATI ONE ×5 (08:24→08:25)
--- NOTE | 2016-12-16 08:49 | Procedure Note ---
Date of procedure: 12/16/16 Pre-op diagnosis: Pneumonia Post-op diagnosis: same Procedure: Flexible bronchoscopy with washing. After obtaining informed consent. Patient prepped in Endo suite. Right nare anesthestized and stable. Scope introduced without difficulty. VC visualized with good AB and AD duction. Lidocaine 6ml's used. Scope then introduced into the trachea. 2 ml of lidocaine used. 2ml of lido to right lung and left lung. Airway inspection of trachea was normal. Left lung showed left upper lobe with 3 segments when normally there are 2. Normal lingula and normal lower lobe. Right lung airway inspection showed normal right upper, middle and lower lobe. No evidence of endobronchial lesion seen. Wash performed in left upper lobe with good return. Will send for anaerobic, respiratory culture, cytology afb and fungal. Scope retracted and patient taken to recovery. No immediate post-op complications. Anesthesia: MAC Surgeon: PEÑA BOOKER Estimated blood loss: none Pathology: none Specimen disposition: to lab Condition: stable Disposition: floor
--- NOTE | 2016-12-16 09:03 | Post Anesthesia Evaluation ---
- Post Anesthesia Evaluation Patient Participated: Yes Airway Patent: Yes Stable Respiratory Function: Yes Temp > 96.8F: Yes Pain Manageable: Yes Adequeate Hydration: Yes Anesthesia Complications: No Block Receding Appropriately: Not Applicable
[2016-12-16] MEDS ORDERED: TYLENOL PO SCH (12:00)
[2016-12-16] MEDS ORDERED: BENADRYL IV SCH (12:00)
[2016-12-16] MEDS ORDERED: PEPCID PO SCH (12:00)
[2016-12-16] MEDS: MIRALAX 3350 PO SCH ×2 (12:39→23:27)
[2016-12-16] MEDS: ROCEPHIN/NS 1 GM/50 ML 1 GM/50 ML BAG IV SCH (12:39)
[2016-12-16] MEDS: FOLVITE PO SCH (12:40)
[2016-12-16] MEDS: THERAGRAN-M Tab PO SCH (12:40)
[2016-12-16] MEDS: VITAMIN B-1 PO SCH (12:40)
[2016-12-16] MEDS: ZITHROMAX PO SCH (12:40)
--- NOTE | 2016-12-16 13:57 | Progress Note ---
Assessment and Plan - Patient Problems (1) ARF (acute renal failure) Current Visit: Yes Status: Acute Qualifiers: Acute renal failure type: A Plan to address problem: Acute kidney injury possibly due to pre-renal azotemia. ua shows no evidence of hematuria/also no significant proteinuria seen. C3,C4 normal, TOBY, ANCA, Anti GBM all negative/ no evidence of acute GN Renal function improved s/p IVF. cont supportive care for AKILAH, avoid nephrotoxins, NSAIDs, IV contrast Will monitor lytes and renal paramters closely and make further recommendations (2) Hemoptysis Current Visit: Yes Status: Acute Plan to address problem: rule out TB. for bronchoscopy today. (3) Metabolic acidosis Current Visit: Yes Status: Acute Plan to address problem: nonAG met acidosis, d/neelam NS (4) Pneumonia Current Visit: Yes Status: Acute Qualifiers: Pneumonia type: due to unspecified organism Aspiration pneumonia type: A Laterality: bilateral Lung location: upper lobe of lung Qualified Code(s): J18.9 - Pneumonia, unspecified organism Plan to address problem: on ceftriaxone, azithromycin for community acquired PNA (5) Anemia Current Visit: No Status: Acute Qualifiers: Anemia type: A Iron deficiency anemia type: I Vitamin B12 deficiency anemia type: V Folate deficiency anemia type: F Bone marrow failure anemia type: B Hemolytic anemia type: H Other causes of anemia: chronic disease, other Chronic kidney disease stage: C Qualified Code(s): D63.8 - Anemia in other chronic diseases classified elsewhere Plan to address problem: likely due to hemoptysis, follow serial CBC, transfuse for hb < 7 (6) Hypokalemia Onset Date: 11/06/15 Current Visit: No Status: Acute Plan to address problem: hypomagnesemia contributing, resolved with KCL/Mg supplementation (7) Hyponatremia Onset Date: 11/09/15 Current Visit: No Status: Acute Plan to address problem: likely hypovolemic nature. underlying SIADH acute pulmonary pathology possible. na improved with NS Subjective Date of service: 12/16/16 Principal diagnosis: pneumonia/AKILAH Interval history: pt awake, alert, in NAD. Objective - Vital Signs Vital signs: Vital Signs - 12hr 12/16/16 12/16/16 12/16/16 07:27 07:49 07:53 Temperature 98.5 F 98.5 F 98.5 F Pulse Rate 62 62 Pulse Rate [ 78 Left Radial] Respiratory 16 16 16 Rate Blood Pressure 159/81 159/81 Blood Pressure 148/80 [Left Arm] O2 Sat by Pulse 98 99 99 Oximetry 12/16/16 12/16/16 12/16/16 08:31 08:50 09:05 Temperature 97.6 F Pulse Rate 89 76 64 Pulse Rate [ Left Radial] Respiratory 10 L 22 17 Rate Blood Pressure 114/66 115/64 124/69 Blood Pressure [Left Arm] O2 Sat by Pulse 99 100 100 Oximetry - General Appearance General appearance: well-developed, well-nourished, appears stated age EENT: ATNC, PERRL, mucous membranes moist Neck: no JVD Respiratory: Present: Clear to Ascultation Cardiology: regular, S1S2 Gastrointestinal: normal, normoactive bowel sounds Integumentary: no rash, other (no edema ) Neurologic: no focal deficit, alert and oriented x3, strength 5/5, CN 3-12 intact Psychiatric: mood/affect appropriate, cooperative - Lab 12/14/16 05:40 12/15/16 10:44 Most recent lab results Calcium 7.1 mg/dL (8.4-10.2) L 12/15/16 10:44 Magnesium 1.30 mg/dL (1.7-2.3) L 12/15/16 10:44 Urine Creatinine 62.0 mg/dL (0.1-20.0) H 12/13/16 14:30 Urine Sodium 48 mEq/L 12/13/16 14:30 Urine Total Protein < 4 mg/dL (5-11.8) L 12/13/16 14:30
--- NOTE | 2016-12-16 14:16 | Progress Note ---
Assessment and Plan Assessment and plan: 56M who presents with fever, weight loss and hemptysis. ARF (acute renal failure)/vasomotor nephropathy * resolved with IV fluids * Nephrology input appreciated * Avoid nephrotoxins Pneumonia * chest x-ray appreciated left opacity in the upper lobe. * Continue abx, avoid quinolones in light of suspected TB * continue airborne isolation, AFB x3, ID and pulmonary consult appreciated * continue empiric antibiotics * send serum quantiferon. * HIV screen was negative on 12/14/16 * sp Bronchoscopy today Hypertension * well controlled, continue current medications Anemia of chronic disease * TIBC is low * Hg has dropped from 9 to 7 with IV hydration * denies GI blood loss * transfuse to keep Hg above 7 DVT prophylaxis Lovenox History Interval history: cough is resolving, scant sputum, hemoptysis has ceased. Denies melena or blood per rectum Hospitalist Physical - Physical exam Narrative exam: General: Patient appears well in no distress HEENT: MMM, EOMI cardiac: S1-S2 heard lungs: clear to auscultation, abdomen: soft, nontender, nondistended bowel sounds positive extremities: no edema clubbing or cyanosis Skin: no rash or lesion Neuro: no focal deficit Psych: appropriate behavior and mood, cognition intact - Constitutional Vitals: Temp Pulse Resp BP Pulse Ox 97.6 F 64 17 124/69 100 12/16/16 08:31 12/16/16 09:05 12/16/16 09:05 12/16/16 09:05 12/16/16 09:05 General appearance: Present: mild distress Results - Labs CBC & Chem 7: 12/14/16 05:40 12/15/16 10:44 Labs: Laboratory Last Values WBC 5.7 K/mm3 (4.5-11.0) 12/14/16 05:40 RBC 2.94 M/mm3 (3.65-5.03) L 12/14/16 05:40 Hgb 7.7 gm/dl (11.8-15.2) L 12/14/16 05:40 Hct 23.8 % (35.5-45.6) L 12/14/16 05:40 MCV 81 fl (84-94) L 12/14/16 05:40 MCH 26 pg (28-32) L 12/14/16 05:40 MCHC 32 % (32-34) 12/14/16 05:40 RDW 17.7 % (13.2-15.2) H 12/14/16 05:40 Plt Count 266 K/mm3 (140-440) 12/14/16 05:40 Lymph % (Auto) 18.5 % (13.4-35.0) 12/14/16 05:40 [place] % (Auto) 11.2 % (0.0-7.3) H 12/14/16 05:40 Eos % (Auto) 5.7 % (0.0-4.3) H 12/14/16 05:40 Baso % (Auto) 1.9 % (0.0-1.8) H 12/14/16 05:40 Lymph # 1.0 K/mm3 (1.2-5.4) L 12/14/16 05:40 [place] # 0.6 K/mm3 (0.0-0.8) 12/14/16 05:40 Eos # 0.3 K/mm3 (0.0-0.4) 12/14/16 05:40 Baso # 0.1 K/mm3 (0.0-0.1) 12/14/16 05:40 Seg Neutrophils % 62.7 % (40.0-70.0) 12/14/16 05:40 Seg Neutrophils # 3.6 K/mm3 (1.8-7.7) 12/14/16 05:40 ESR > 140.0 mm/Hr (0-20) 12/14/16 05:40 PT 14.9 Sec. (12.2-14.9) 12/16/16 06:05 INR 1.18 (0.87-1.13) H 12/16/16 06:05 APTT 41.7 Sec. (24.2-36.6) H 12/16/16 06:05 Sodium 135 mmol/L (137-145) L 12/15/16 10:44 Potassium 4.4 mmol/L (3.6-5.0) 12/15/16 10:44 Chloride 104.4 mmol/L (98-107) 12/15/16 10:44 Carbon Dioxide 19 mmol/L (22-30) L 12/15/16 10:44 Anion Gap 16 mmol/L 12/15/16 10:44 BUN 11 mg/dL (9-20) 12/15/16 10:44 Creatinine 1.1 mg/dL (0.8-1.5) 12/15/16 10:44 Estimated GFR > 60 ml/min 12/15/16 10:44 BUN/Creatinine Ratio 10.00 % 12/15/16 10:44 Glucose 103 mg/dL (75-100) H 12/15/16 10:44 Calcium 7.1 mg/dL (8.4-10.2) L 12/15/16 10:44 Magnesium 1.30 mg/dL (1.7-2.3) L 12/15/16 10:44 Iron 35 ug/dL (49-181) L 12/14/16 05:40 TIBC 177 mcg/dL (250-450) L 12/14/16 05:40 Ferritin 156.1 ng/mL (13.0-400.0) 12/14/16 05:40 Lactate Dehydrogenase 87 units/L (91-180) L 12/14/16 05:40 Troponin T < 0.010 ng/mL (0.00-0.029) 12/13/16 13:25 Vitamin B12 963.5 pg/mL (211-911) H 12/14/16 05:40 Urine Color Straw (Yellow) 12/13/16 14:30 Urine Turbidity Clear (Clear) 12/13/16 14:30 Urine pH 6.0 (5.0-7.0) 12/13/16 14:30 Ur Specific [place] 1.006 (1.003-1.030) 12/13/16 14:30 Urine Protein <15 mg/dl mg/dL (Negative) 12/13/16 14:30 Urine Glucose (UA) Neg mg/dL (Negative) 12/13/16 14:30 Urine Ketones Neg mg/dL (Negative) 12/13/16 14:30 Urine Blood Neg (Negative) 12/13/16 14:30 Urine Nitrite Neg (Negative) 12/13/16 14:30 Urine Bilirubin Neg (Negative) 12/13/16 14:30 Urine Urobilinogen < 2.0 mg/dL (<2.0) 12/13/16 14:30 Ur Leukocyte Esterase Neg (Negative) 12/13/16 14:30 Urine WBC (Auto) < 1.0 /HPF (0.0-6.0) 12/13/16 14:30 Urine RBC (Auto) < 1.0 /HPF (0.0-6.0) 12/13/16 14:30 Urine Osmolality 233 Mosm/kg 12/13/16 14:30 Urine Creatinine 62.0 mg/dL (0.1-20.0) H 12/13/16 14:30 Urine Sodium 48 mEq/L 12/13/16 14:30 Urine Total Protein < 4 mg/dL (5-11.8) L 12/13/16 14:30 TOBY Screen Negative (Negative) 12/13/16 10:23 Proteinase 3 (PR3) Ab <1.0 AI (<1.0) 12/13/16 10:23 Myeloperoxidase Ab <1.0 AI (<1.0) 12/13/16 10:23 Glomerular Base Mem IgG <1.0 AI (<1.0) 12/13/16 10:23 Complement C3 147 mg/dL (90-180) 12/13/16 10:23 Complement C4 22 mg/dL (16-47) 12/13/16 10:23 HIV 1&2 Antibody Rapid Non react (Non React) 12/14/16 09:17 HIV P24 Antigen Non react (Non React) 12/14/16 09:17 Blood Type B POSITIVE 12/16/16 07:40 Antibody Screen TNR 12/16/16 07:40 JUANI Antibody Screen Negative 12/16/16 07:40
[2016-12-16] MEDS: MAG-OX PO SCH ×2 (15:35→23:30)
[2016-12-16] MEDS ORDERED: NACL 0.9% IV ONE (20:00)
[2016-12-16] MEDS ORDERED: INFED IV ONE (20:00)
--- NOTE | 2016-12-16 23:14 | Consultation ---
History of Present Illness - Reason for Consult Consult date: 12/16/16 - History of Present Illness Patient seen/examined, no new issues except no new cbc. sputum now scanty,less bloody. will do new cbc. Once TB r/o, and PNA resolves, disposition will be as per you. Past History Past Medical History: anemia, liver disease, other (gouty arthritis.) Past Surgical History: No surgical history Social history: single, lives with family, alcohol abuse. denies: smoking, prescription drug abuse, IV drug use Family history: no significant family history, other (mother - DM, HTN) Medications and Allergies Allergies Allergy/AdvReac Type Severity Reaction Status Date / Time No Known Allergies Allergy Unverified 05/10/13 08:48 Home Medications Medication Instructions Recorded Confirmed Last Taken Type ALBUTEROL Inhaler [ProAir HFA 2 puff IH QID PRN #1 each 12/01/16 12/12/16 Rx Inhaler] 100 MG Allopurinol 100 PO QDAY 12/13/16 12/12/16 History Amlodipine Besylate 10 mg PO DAILY 12/13/16 12/13/16 Unknown History Folic Acid [Folic Acid] 1 mg PO DAILY 12/13/16 12/13/16 Unknown History Hydrochlorothiazide [HCTZ] 50 mg PO DAILY 12/13/16 12/13/16 Unknown History Indomethacin 25 mg PO TID 12/13/16 12/13/16 Unknown History Levofloxacin [Levaquin] 750 mg PO QDAY MDD 100 mg 12/13/16 12/13/16 12/12/16 History Thiamine [Vitamin B-1] 100 mg PO QDAY 12/13/16 12/13/16 Unknown History Vitamin B-12 1,000 mcg PO DAILY 12/13/16 12/13/16 Unknown History Active Meds: Active Medications Acetaminophen (Tylenol) 650 mg PO Q4H PRN PRN Reason: For Pain/Fever/Headache Last Admin: 12/13/16 13:14 Dose: 650 mg Acetaminophen/Hydrocodone Bitart ([place] 5/325) 1 each PO Q6H PRN PRN Reason: Pain, Moderate (4-6) Last Admin: 12/15/16 16:37 Dose: 1 each Azithromycin (Zithromax) 500 mg PO QDAY [facility] Last Admin: 12/16/16 12:40 Dose: 500 mg Enoxaparin Sodium (Lovenox) 40 mg SUB-Q QDAY@2200 [facility] Last Admin: 12/15/16 23:00 Dose: 40 mg Folic Acid (Folvite) 1 mg PO QDAY [facility] Last Admin: 12/16/16 12:40 Dose: 1 mg Guaifenesin (Robitussin) 200 mg PO Q4H PRN PRN Reason: Cough Ceftriaxone Sodium (Rocephin/Ns 1 Gm/50 Ml) 1 gm in 50 mls @ 100 mls/hr IV Q24HR [facility] PRN Reason: Protocol Last Admin: 12/16/16 12:39 Dose: 100 mls/hr Sodium Chloride (Nacl 0.9% 1000 Ml) 1,000 mls @ 50 mls/hr IV DIRECT [facility] Last Admin: 12/16/16 08:13 Dose: 50 mls/hr Indomethacin (Indocin) 25 mg PO Q8HR [facility] Stop: 12/16/16 23:59 Last Admin: 12/16/16 14:18 Dose: 25 mg Magnesium Oxide (Mag-Ox) 400 mg PO BID [facility] Last Admin: 12/16/16 15:35 Dose: 400 mg Multivitamins/Minerals (Theragran-M Tab) 1 each PO QDAY [facility] Last Admin: 12/16/16 12:40 Dose: 1 each Ondansetron HCl (Zofran) 4 mg IV Q8H PRN PRN Reason: Nausea And Vomiting Polyethylene Glycol (Miralax 3350) 17 gm PO BID [facility] Last Admin: 12/16/16 12:39 Dose: 17 gm Thiamine HCl (Vitamin B-1) 100 mg PO QDAY [facility] Last Admin: 12/16/16 12:40 Dose: 100 mg Review of Systems Constitutional: fatigue Respiratory: cough with sputum Exam - Constitutional Vitals: Temp Pulse Resp BP Pulse Ox 99.1 F 80 16 140/72 100 12/16/16 16:00 12/16/16 16:00 12/16/16 16:00 12/16/16 16:00 12/16/16 20:31 General appearance: Present: no acute distress - EENT Eyes: Present: PERRL ENT: hearing intact, clear oral mucosa - Neck Neck: Present: supple, normal ROM - Respiratory Respiratory: bilateral: rhonchi - Cardiovascular Heart Sounds: Present: S1 & S2. Absent: rub, click - Extremities Extremities: pulses symmetrical, No edema Peripheral Pulses: within normal limits - Abdominal General gastrointestinal: Present: soft, non-tender, non-distended, normal bowel sounds Male genitourinary: Present: deferred - Rectal Rectal Exam: deferred - Integumentary Integumentary: Present: clear, warm, dry - Musculoskeletal Musculoskeletal: gait normal, strength equal bilaterally - Psychiatric Psychiatric: appropriate mood/affect, intact judgment & insight - Neurologic Neurologic: CNII-XII intact, moves all extremities Results - Labs CBC & Chem 7: 12/14/16 05:40 12/15/16 10:44 Labs: Abnormal lab results 12/16/16 Range/Units 06:05 INR 1.18 H (0.87-1.13) APTT 41.7 H (24.2-36.6) Sec. Assessment and Plan - Patient Problems (1) ARF (acute renal failure) Current Visit: Yes Status: Acute Qualifiers: Acute renal failure type: A Plan to address problem: Follow renal. improved. (2) Hemoptysis Current Visit: Yes Status: Acute Plan to address problem: follow ID/Pulm, awaiting cultures. improved. (3) Pneumonia Current Visit: Yes Status: Acute Qualifiers: Pneumonia type: due to unspecified organism Aspiration pneumonia type: A Laterality: bilateral Lung location: upper lobe of lung Qualified Code(s): J18.9 - Pneumonia, unspecified organism Plan to address problem: follow pulm. (4) Alcohol dependence with withdrawal delirium Onset Date: 11/05/15 Current Visit: No Status: Acute (5) Anemia Current Visit: No Status: Acute Qualifiers: Anemia type: A Iron deficiency anemia type: I Vitamin B12 deficiency anemia type: V Folate deficiency anemia type: F Bone marrow failure anemia type: B Hemolytic anemia type: H Other causes of anemia: chronic disease, other Chronic kidney disease stage: C Qualified Code(s): D63.8 - Anemia in other chronic diseases classified elsewhere Plan to address problem: Iron replacement, for now, transfusion later if indicated. will do new labs.
[2016-12-16] MEDS: LOVENOX SUB-Q SCH (23:27)
[2016-12-16] MEDS: PEPCID PO SCH (23:30)
[2016-12-16] MEDS: BENADRYL IV SCH (23:31)
[2016-12-16] MEDS: TYLENOL PO SCH (23:59)
--- NOTE | 2016-12-17 08:24 | Progress Note ---
Assessment and Plan - Patient Problems (1) Pneumonia Current Visit: Yes Status: Acute Qualifiers: Pneumonia type: due to unspecified organism Aspiration pneumonia type: A Laterality: bilateral Lung location: upper lobe of lung Qualified Code(s): J18.9 - Pneumonia, unspecified organism Plan to address problem: 1. Await results of expectorated and bronch-obtained specimens. 2. Continue same antibiotic management for now. Subjective Date of service: 12/17/16 Principal diagnosis: pneumonia/AKILAH Interval history: Bronchoscopy performed yesterday. Remains afebrile. "I used to cough day and night, but it's letting up." No new clinical issues. Objective - Constitutional Vitals: Vital Signs Temp Pulse Resp BP Pulse Ox 97.8 F 60 15 164/91 98 12/17/16 07:10 12/17/16 07:10 12/17/16 07:10 12/17/16 07:10 12/17/16 07:10 Temperature -Last 24 Hours Temperature 97.8 F Temperature 98.6 F Temperature 99.1 F Temperature 97.6 F General appearance: Present: no acute distress, well-nourished - EENT Eyes: no conjunctival injection - Respiratory Respiratory effort: normal Respiratory: bilateral: CTA, negative: rales, rhonchi - Cardiovascular Rhythm: regular Heart Sounds: Present: S1 & S2 Extremities: No edema - Gastrointestinal General gastrointestinal: Present: soft, non-distended, normal bowel sounds - Integumentary Integumentary: clear, no rash - Neurologic Neurologic: no focal deficits - Psychiatric Psychiatric: appropriate mood/affect - Labs CBC & Chem 7: 12/14/16 05:40 12/15/16 10:44 Labs: Microbiology 12/12/16 22:46 Peripheral/Venous Blood Culture - Preliminary NO GROWTH AFTER 4 DAYS 12/12/16 22:46 Peripheral/Venous Blood Culture - Preliminary NO GROWTH AFTER 4 DAYS 12/13/16 11:38 Peripheral/Venous AFB Smear Concentration - Final ( inappropriate for analysis) 12/14/16 Unknown Sputum - Expectorated Sputum Sputum Culture - Final
[2016-12-17] MEDS: ROCEPHIN/NS 1 GM/50 ML 1 GM/50 ML BAG IV SCH (09:46)
[2016-12-17] MEDS: FOLVITE PO SCH (09:47)
[2016-12-17] MEDS: VITAMIN B-1 PO SCH (09:47)
[2016-12-17] MEDS: MAG-OX PO SCH ×2 (09:47→22:51)
[2016-12-17] MEDS: ZITHROMAX PO SCH (09:47)
[2016-12-17] MEDS: THERAGRAN-M Tab PO SCH (09:47)
[2016-12-17] MEDS: MIRALAX 3350 PO SCH ×2 (09:48→22:51)
--- NOTE | 2016-12-17 10:18 | Progress Note ---
Subjective Date of service: 12/17/16 Principal diagnosis: pneumonia/AKILAH Interval history: Assessment and plan: AKILAH: * resolved with IV fluids * Avoid nephrotoxins Pneumonia * chest x-ray shows bilateral upper lobe infiltrates * Will repeat chest x-ray tomorrow to follow up on the infiltrates * Sputum for AFB negative * Mycobacterial cultures pending * continue airborne isolation, AFB x3, ID and pulmonary consult notes reviewed * continue empiric antibiotics with ceftriaxone and Zithromax * send serum quantiferon. * HIV screen negative on 12/14/16 * sp Bronchoscopy Hypertension * well controlled, continue current medications Anemia of chronic disease * TIBC is low * Hg has dropped from 9 to 7 with IV hydration * No overt bleeding * transfuse to keep Hg above 7 Hypomagnesemia: Will recheck magnesium levels tomorrow's labs DVT prophylaxis Lovenox Subjective: Patient is awake alert and oriented No specific complaints Continues to feel better Cough is improving Presently has occasional blood streaks which he says he is significantly improved Gout pain in the knees has also improved Objective - Constitutional Vitals: Vital Signs - 12hr 12/16/16 12/17/16 23:00 07:10 Temperature 98.6 F 97.8 F Pulse Rate [ 83 60 Left Radial] Respiratory 18 15 Rate Blood Pressure 154/78 164/91 [Left Arm] O2 Sat by Pulse 100 98 Oximetry General appearance: Present: no acute distress - EENT Eyes: PERRL, EOM intact ENT: hearing intact, no thrush - Neck Neck: supple, normal ROM, no masses or JVD, no carotid bruits - Respiratory Respiratory effort: normal Respiratory: bilateral: CTA - Cardiovascular Rhythm: regular Heart Sounds: Present: S1 & S2 Extremities: No edema - Gastrointestinal General gastrointestinal: Present: soft, non-tender. Absent: hepatomegaly, splenomegaly - Genitourinary Male genitourinary: deferred - Integumentary Integumentary: clear - Musculoskeletal Musculoskeletal: strength equal bilaterally - Neurologic Neurologic: CNII-XII intact, no focal deficits - Psychiatric Psychiatric: appropriate mood/affect - Labs CBC & Chem 7: 12/14/16 05:40 12/15/16 10:44
[2016-12-17] MEDS ORDERED: MAGNESIUM SULFATE 1 GM in NACL 0.9% 50 ML IV ONE (11:00)
--- NOTE | 2016-12-17 13:03 | Progress Note ---
Assessment and Plan (1) ARF (acute renal failure) Current Visit: Yes Status: Acute Qualifiers: Acute renal failure type: A Plan to address problem: Acute kidney injury possibly due to pre-renal azotemia. ua shows no evidence of hematuria/also no significant proteinuria seen. C3,C4 normal, TOBY, ANCA, Anti GBM all negative/ no evidence of acute GN Renal function improved s/p IVF. cont supportive care for AKILAH, avoid nephrotoxins, NSAIDs, IV contrast Continue to monitor lytes and renal paramters closely Will sign off case today, please call with questions (2) Hemoptysis Current Visit: Yes Status: Acute Plan to address problem: rule out TB. S/p bronchoscopy. F/u on results (3) Metabolic acidosis Current Visit: Yes Status: Acute Plan to address problem: nonAG met acidosis, d/neelam NS Stable F/u on serum bicarb (4) Pneumonia Current Visit: Yes Status: Acute Qualifiers: Pneumonia type: due to unspecified organism Aspiration pneumonia type: A Laterality: bilateral Lung location: upper lobe of lung Qualified Code(s): J18.9 - Pneumonia, unspecified organism Plan to address problem: On ceftriaxone, azithromycin for community acquired PNA (5) Anemia Current Visit: No Status: Acute Qualifiers: Anemia type: A Iron deficiency anemia type: I Vitamin B12 deficiency anemia type: V Folate deficiency anemia type: F Bone marrow failure anemia type: B Hemolytic anemia type: H Other causes of anemia: chronic disease, other Chronic kidney disease stage: C Qualified Code(s): D63.8 - Anemia in other chronic diseases classified elsewhere Plan to address problem: likely due to hemoptysis, follow serial CBC, Anemia worse Transfuse for hb < 7 (6) Hypokalemia Onset Date: 11/06/15 Current Visit: No Status: Acute Plan to address problem: Resolved with KCL/Mg supplementation Subjective Date of service: 12/18/16 Principal diagnosis: pneumonia/AKILAH Interval history: No new complaints. Cough decreased Objective - Exam Narrative Exam: General appearance: well-developed, well-nourished, appears stated age HEENT: ATNC, PERRL, mucous membranes moist, normocephalic, atraumatic Neck: no JVD, supple neck Respiratory: Present: Clear to Ascultation, no wheezing Cardiology: regular, S1S2 WNL Gastrointestinal: normal, normoactive bowel sounds Integumentary: no rash, other (no edema ) Neurologic: no focal deficit, alert and oriented x3, strength 5/5, CN 3-12 intact Psychiatric: mood/affect appropriate, cooperative - Vital Signs Vital signs: Vital Signs - 12hr 12/17/16 12/17/16 07:10 10:00 Temperature 97.8 F Pulse Rate [ 60 Left Radial] Respiratory 15 Rate Blood Pressure 164/91 [Left Arm] O2 Sat by Pulse 98 98 Oximetry - Lab 12/17/16 14:39 12/17/16 14:39 Most recent lab results Calcium 7.1 mg/dL (8.4-10.2) L 12/15/16 10:44 Magnesium 1.30 mg/dL (1.7-2.3) L 12/15/16 10:44 Urine Creatinine 62.0 mg/dL (0.1-20.0) H 12/13/16 14:30 Urine Sodium 48 mEq/L 12/13/16 14:30 Urine Total Protein < 4 mg/dL (5-11.8) L 12/13/16 14:30
--- NOTE | 2016-12-17 13:50 | Progress Note ---
Assessment and Plan 56 y/o male with bilateral upper lobe disease and hemoptysis 1. Follow up bronch results 2. Will check AFB, Fungal and Respiratory cultures. Will send cytology as well. 3. Subjective Date of service: 12/17/16 Principal diagnosis: pneumonia/AKILAH Interval history: No acute events. Cough is better Objective Vital Signs - 12hr 12/17/16 12/17/16 07:10 10:00 Temperature 97.8 F Pulse Rate [ 60 Left Radial] Respiratory 15 Rate Blood Pressure 164/91 [Left Arm] O2 Sat by Pulse 98 98 Oximetry Constitutional: no acute distress, alert ENT: other (poor dentition) Effort: normal Ascultation: Bilateral: rhonchi (upper lobes) Percussion: Bilateral: not dull Tactile fremitus: Bilateral: normal Cardiovascular: regular rate and rhythm Gastrointestinal: normoactive bowel sounds Neurologic: normal mental status, non-focal exam CBC and BMP: 12/14/16 05:40 12/15/16 10:44 ABG, PT/INR, D-dimer: PT/INR, D-dimer PT 14.9 Sec. (12.2-14.9) 12/16/16 06:05 INR 1.18 (0.87-1.13) H 12/16/16 06:05 Abnormal lab findings: Abnormal Labs 12/13/16 12/13/16 12/14/16 07:33 14:30 05:40 RBC Hgb Hct MCV MCH RDW [place] % (Auto) Eos % (Auto) Baso % (Auto) Lymph # PT INR APTT Sodium 133 L Chloride 97.7 L Carbon Dioxide 21 L BUN 26 H Creatinine 2.3 H Glucose Calcium 7.3 L Magnesium Iron 35 L TIBC 177 L Lactate Dehydrogenase Vitamin B12 Urine Creatinine 62.0 H Urine Total Protein < 4 L 12/14/16 12/14/16 12/14/16 05:40 05:40 05:40 RBC Hgb Hct MCV MCH RDW [place] % (Auto) Eos % (Auto) Baso % (Auto) Lymph # PT INR APTT Sodium Chloride Carbon Dioxide BUN Creatinine Glucose Calcium Magnesium 1.30 L Iron TIBC Lactate Dehydrogenase 87 L Vitamin B12 963.5 H Urine Creatinine Urine Total Protein 12/14/16 12/14/16 12/14/16 05:40 05:40 11:15 RBC 2.94 L Hgb 7.7 L Hct 23.8 L MCV 81 L MCH 26 L RDW 17.7 H [place] % (Auto) 11.2 H Eos % (Auto) 5.7 H Baso % (Auto) 1.9 H Lymph # 1.0 L PT 15.9 H INR 1.21 H APTT 40.4 H Sodium 134 L Chloride Carbon Dioxide 21 L BUN Creatinine Glucose Calcium 7.5 L Magnesium Iron TIBC Lactate Dehydrogenase Vitamin B12 Urine Creatinine Urine Total Protein 12/15/16 12/16/16 10:44 06:05 RBC Hgb Hct MCV MCH RDW [place] % (Auto) Eos % (Auto) Baso % (Auto) Lymph # PT INR 1.18 H APTT 41.7 H Sodium 135 L Chloride Carbon Dioxide 19 L BUN Creatinine Glucose 103 H Calcium 7.1 L Magnesium 1.30 L Iron TIBC Lactate Dehydrogenase Vitamin B12 Urine Creatinine Urine Total Protein
[2016-12-17 14:58] LABS: Basophils % (Auto) 1.7 % (0.0-1.8); Eosinophils % (Auto) 9.4 % (0.0-4.3); Hematocrit 20.3 % (35.5-45.6); Hemoglobin 6.9 gm/dl (11.8-15.2); Mean Corpuscular HGB Conc 34 % (32-34); Mean Corpuscular Hemoglobin 27 pg (28-32); Mean Corpuscular Volume 79 fl (84-94); Platelet Count 322 K/mm3 (140-440); Red Blood Count 2.58 M/mm3 (3.65-5.03); Red Cell Distribution Width 18.5 % (13.2-15.2); White Blood Count 6.9 K/mm3 (4.5-11.0)
[2016-12-17 15:13] LABS: Anion Gap 18 mmol/L; Blood Urea Nitrogen 8 mg/dL (9-20); Calcium 7.4 mg/dL (8.4-10.2); Carbon Dioxide 19 mmol/L (22-30); Chloride 105.6 mmol/L (98-107); Glucose 97 mg/dL (75-100); Potassium 4.2 mmol/L (3.6-5.0); Sodium 138 mmol/L (137-145)
[2016-12-17 15:15] LABS: Iron 69 ug/dL (49-181); Total Iron Binding Capacity 218 mcg/dL (250-450)
[2016-12-17] MEDS ORDERED: NACL 0.9% 500 ML 500 ML IV ONE ×2 (18:54→23:00)
--- NOTE | 2016-12-17 18:54 | Consultation ---
History of Present Illness - Reason for Consult Consult date: 12/17/16 - History of Present Illness Patient seen/examined, labs reviewed, H/H dropped severely, will need replacement transfusion. Past History Past Medical History: anemia, liver disease, other (gouty arthritis.) Past Surgical History: No surgical history Social history: single, lives with family, alcohol abuse. denies: smoking, prescription drug abuse, IV drug use Family history: no significant family history, other (mother - DM, HTN) Medications and Allergies Allergies Allergy/AdvReac Type Severity Reaction Status Date / Time No Known Allergies Allergy Unverified 05/10/13 08:48 Home Medications Medication Instructions Recorded Confirmed Last Taken Type ALBUTEROL Inhaler [ProAir HFA 2 puff IH QID PRN #1 each 12/01/16 12/12/16 Rx Inhaler] 100 MG Allopurinol 100 PO QDAY 12/13/16 12/12/16 History Amlodipine Besylate 10 mg PO DAILY 12/13/16 12/13/16 Unknown History Folic Acid [Folic Acid] 1 mg PO DAILY 12/13/16 12/13/16 Unknown History Hydrochlorothiazide [HCTZ] 50 mg PO DAILY 12/13/16 12/13/16 Unknown History Indomethacin 25 mg PO TID 12/13/16 12/13/16 Unknown History Levofloxacin [Levaquin] 750 mg PO QDAY MDD 100 mg 12/13/16 12/13/16 12/12/16 History Thiamine [Vitamin B-1] 100 mg PO QDAY 12/13/16 12/13/16 Unknown History Vitamin B-12 1,000 mcg PO DAILY 12/13/16 12/13/16 Unknown History Active Meds: Active Medications Acetaminophen (Tylenol) 650 mg PO Q4H PRN PRN Reason: For Pain/Fever/Headache Last Admin: 12/13/16 13:14 Dose: 650 mg Acetaminophen/Hydrocodone Bitart ([place] 5/325) 1 each PO Q6H PRN PRN Reason: Pain, Moderate (4-6) Last Admin: 12/15/16 16:37 Dose: 1 each Azithromycin (Zithromax) 500 mg PO QDAY [facility] Last Admin: 12/17/16 09:47 Dose: 500 mg Enoxaparin Sodium (Lovenox) 40 mg SUB-Q QDAY@2200 [facility] Last Admin: 12/16/16 23:27 Dose: 40 mg Folic Acid (Folvite) 1 mg PO QDAY [facility] Last Admin: 12/17/16 09:47 Dose: 1 mg Guaifenesin (Robitussin) 200 mg PO Q4H PRN PRN Reason: Cough Ceftriaxone Sodium (Rocephin/Ns 1 Gm/50 Ml) 1 gm in 50 mls @ 100 mls/hr IV Q24HR [facility] PRN Reason: Protocol Last Admin: 12/17/16 09:46 Dose: 100 mls/hr Sodium Chloride (Nacl 0.9% 1000 Ml) 1,000 mls @ 50 mls/hr IV DIRECT [facility] Last Admin: 12/16/16 08:13 Dose: 50 mls/hr Magnesium Oxide (Mag-Ox) 400 mg PO BID [facility] Last Admin: 12/17/16 09:47 Dose: 400 mg Multivitamins/Minerals (Theragran-M Tab) 1 each PO QDAY [facility] Last Admin: 12/17/16 09:47 Dose: 1 each Ondansetron HCl (Zofran) 4 mg IV Q8H PRN PRN Reason: Nausea And Vomiting Polyethylene Glycol (Miralax 3350) 17 gm PO BID [facility] Last Admin: 12/17/16 09:48 Dose: 17 gm Thiamine HCl (Vitamin B-1) 100 mg PO QDAY [facility] Last Admin: 12/17/16 09:47 Dose: 100 mg Review of Systems Respiratory: cough with sputum Exam - Constitutional Vitals: Temp Pulse Resp BP Pulse Ox 98.4 F 78 16 153/82 95 12/17/16 14:50 12/17/16 14:50 12/17/16 14:50 12/17/16 14:50 12/17/16 14:50 General appearance: Present: no acute distress, well-nourished - EENT Eyes: Present: PERRL ENT: hearing intact, clear oral mucosa - Neck Neck: Present: supple, normal ROM - Respiratory Respiratory: bilateral: rhonchi - Cardiovascular Heart Sounds: Present: S1 & S2. Absent: rub, click - Extremities Extremities: pulses symmetrical, No edema Peripheral Pulses: within normal limits - Abdominal General gastrointestinal: Present: soft, non-tender, non-distended, normal bowel sounds Male genitourinary: Present: deferred - Rectal Rectal Exam: deferred - Integumentary Integumentary: Present: clear, warm, dry - Musculoskeletal Musculoskeletal: gait normal, strength equal bilaterally - Psychiatric Psychiatric: appropriate mood/affect, intact judgment & insight - Neurologic Neurologic: CNII-XII intact, moves all extremities Results - Labs CBC & Chem 7: 12/17/16 14:39 12/17/16 14:39 Labs: Abnormal lab results 12/17/16 12/17/16 12/17/16 Range/Units 14:39 14:39 14:39 RBC 2.58 L (3.65-5.03) M/mm3 Hgb 6.9 L (11.8-15.2) gm/dl Hct 20.3 L (35.5-45.6) % MCV 79 L (84-94) fl MCH 27 L (28-32) pg RDW 18.5 H (13.2-15.2) % [place] % (Auto) 11.7 H (0.0-7.3) % Eos % (Auto) 9.4 H (0.0-4.3) % Eos # 0.6 H (0.0-0.4) K/mm3 Carbon Dioxide 19 L (22-30) mmol/L BUN 8 L (9-20) mg/dL Calcium 7.4 L (8.4-10.2) mg/dL TIBC 218 L (250-450) mcg/dL Assessment and Plan - Patient Problems (1) ARF (acute renal failure) Current Visit: Yes Status: Acute Qualifiers: Acute renal failure type: A Plan to address problem: Follow renal. improved. (2) Hemoptysis Current Visit: Yes Status: Acute Plan to address problem: follow ID/Pulm, awaiting cultures. improved. (3) Pneumonia Current Visit: Yes Status: Acute Qualifiers: Pneumonia type: due to unspecified organism Aspiration pneumonia type: A Laterality: bilateral Lung location: upper lobe of lung Qualified Code(s): J18.9 - Pneumonia, unspecified organism Plan to address problem: follow pulm. (4) Alcohol dependence with withdrawal delirium Onset Date: 11/05/15 Current Visit: No Status: Acute (5) Anemia Current Visit: No Status: Acute Qualifiers: Anemia type: A Iron deficiency anemia type: I Vitamin B12 deficiency anemia type: V Folate deficiency anemia type: F Bone marrow failure anemia type: B Hemolytic anemia type: H Other causes of anemia: chronic disease, other Chronic kidney disease stage: C Qualified Code(s): D63.8 - Anemia in other chronic diseases classified elsewhere Plan to address problem: Iron replacement, for now, transfusion later if indicated. will do new labs. Will need replacement transfusion.
[2016-12-17] MEDS: LOVENOX SUB-Q SCH (22:50)
[2016-12-17] MEDS ORDERED: BENADRYL IV ONE (23:35)
[2016-12-18] MEDS ORDERED: APRESOLINE IV PRN (03:12)
--- NOTE | 2016-12-18 09:33 | XRay Report ---
ROUTINE CHEST, TWO VIEWS: HISTORY: Followup bilateral upper lobe infiltrates. The linear opacity resembling scarring in the right upper lobe is unchanged. Subtle patchy infiltration in the left apical region is also grossly unchanged. The remainder of the lungs are generally clear. No pleural effusion or pneumothorax has developed. Heart size remains within normal limits. Normal bony structures. IMPRESSION: No change.
[2016-12-18] MEDS: NORVASC PO SCH (09:57)
[2016-12-18] MEDS: MIRALAX 3350 PO SCH ×2 (09:57→22:23)
[2016-12-18] MEDS: HCTZ PO SCH (09:57)
[2016-12-18] MEDS: THERAGRAN-M Tab PO SCH (09:58)
[2016-12-18] MEDS: ROCEPHIN/NS 1 GM/50 ML 1 GM/50 ML BAG IV SCH (09:58)
[2016-12-18] MEDS: MAG-OX PO SCH ×2 (09:58→22:22)
[2016-12-18] MEDS: ZITHROMAX PO SCH (09:58)
[2016-12-18] MEDS: VITAMIN B-1 PO SCH (09:58)
--- NOTE | 2016-12-18 10:35 | Progress Note ---
Assessment and Plan Assessment and plan: AKILAH: * resolved with IV fluids * Avoid nephrotoxins Pneumonia * chest x-ray shows bilateral upper lobe infiltrates * Sputum for AFB negative * Mycobacterial cultures pending * Check fungal and sputum culture * continue airborne isolation, AFB x3, ID and pulmonary consult notes reviewed * continue empiric antibiotics with ceftriaxone and Zithromax * send serum quantiferon. * HIV screen negative on 12/14/16 * sp Bronchoscopy, follow-up bronchoscopy results. Hypertension * well controlled, continue current medications Anemia of chronic disease * TIBC is low * Hg has dropped from 9 to 7 with IV hydration * No overt bleeding * transfuse to keep Hg above 7 * Hematology following Hypomagnesemia: We'll replete magnesium as needed DVT prophylaxis Lovenox History Interval history: No issues overnight. Hospitalist Physical - Constitutional Vitals: Temp Pulse Resp BP Pulse Ox 98.0 F 84 17 170/80 96 12/18/16 04:20 12/18/16 09:57 12/18/16 04:20 12/18/16 09:57 12/18/16 03:50 General appearance: Present: no acute distress, well-nourished - EENT Eyes: Present: PERRL, EOM intact ENT: hearing intact, clear oral mucosa, dentition normal - Neck Neck: Present: supple, normal ROM - Respiratory Respiratory effort: normal Respiratory: bilateral: CTA - Cardiovascular Rhythm: regular Heart Sounds: Present: S1 & S2. Absent: gallop, rub - Extremities Extremities: no ischemia, No edema, Full ROM - Abdominal General gastrointestinal: soft, non-tender, non-distended, normal bowel sounds - Integumentary Integumentary: Present: clear, warm, dry - Neurologic Neurologic: CNII-XII intact, moves all extremities Results - Labs CBC & Chem 7: 12/17/16 14:39 12/17/16 14:39 Labs: Laboratory Last Values WBC 6.9 K/mm3 (4.5-11.0) 12/17/16 14:39 RBC 2.58 M/mm3 (3.65-5.03) L 12/17/16 14:39 Hgb 6.9 gm/dl (11.8-15.2) L 12/17/16 14:39 Hct 20.3 % (35.5-45.6) L 12/17/16 14:39 MCV 79 fl (84-94) L 12/17/16 14:39 MCH 27 pg (28-32) L 12/17/16 14:39 MCHC 34 % (32-34) 12/17/16 14:39 RDW 18.5 % (13.2-15.2) H 12/17/16 14:39 Plt Count 322 K/mm3 (140-440) 12/17/16 14:39 Lymph % (Auto) 23.2 % (13.4-35.0) 12/17/16 14:39 [place] % (Auto) 11.7 % (0.0-7.3) H 12/17/16 14:39 Eos % (Auto) 9.4 % (0.0-4.3) H 12/17/16 14:39 Baso % (Auto) 1.7 % (0.0-1.8) 12/17/16 14:39 Lymph # 1.6 K/mm3 (1.2-5.4) 12/17/16 14:39 [place] # 0.8 K/mm3 (0.0-0.8) 12/17/16 14:39 Eos # 0.6 K/mm3 (0.0-0.4) H 12/17/16 14:39 Baso # 0.1 K/mm3 (0.0-0.1) 12/17/16 14:39 Seg Neutrophils % 54.0 % (40.0-70.0) 12/17/16 14:39 Seg Neutrophils # 3.7 K/mm3 (1.8-7.7) 12/17/16 14:39 ESR > 140.0 mm/Hr (0-20) 12/14/16 05:40 PT 14.9 Sec. (12.2-14.9) 12/16/16 06:05 INR 1.18 (0.87-1.13) H 12/16/16 06:05 APTT 41.7 Sec. (24.2-36.6) H 12/16/16 06:05 Sodium 138 mmol/L (137-145) 12/17/16 14:39 Potassium 4.2 mmol/L (3.6-5.0) 12/17/16 14:39 Chloride 105.6 mmol/L (98-107) 12/17/16 14:39 Carbon Dioxide 19 mmol/L (22-30) L 12/17/16 14:39 Anion Gap 18 mmol/L 12/17/16 14:39 BUN 8 mg/dL (9-20) L 12/17/16 14:39 Creatinine 0.8 mg/dL (0.8-1.5) 12/17/16 14:39 Estimated GFR > 60 ml/min 12/17/16 14:39 BUN/Creatinine Ratio 10.00 % 12/17/16 14:39 Glucose 97 mg/dL (75-100) 12/17/16 14:39 Calcium 7.4 mg/dL (8.4-10.2) L 12/17/16 14:39 Magnesium 1.30 mg/dL (1.7-2.3) L 12/15/16 10:44 Iron 69 ug/dL (49-181) 12/17/16 14:39 TIBC 218 mcg/dL (250-450) L 12/17/16 14:39 Ferritin 195.6 ng/mL (13.0-400.0) 12/17/16 14:39 Lactate Dehydrogenase 87 units/L (91-180) L 12/14/16 05:40 Troponin T < 0.010 ng/mL (0.00-0.029) 12/13/16 13:25 Vitamin B12 963.5 pg/mL (211-911) H 12/14/16 05:40 RBC Folic Acid 694 ng/mL (>280) 12/14/16 05:40 Urine Color Straw (Yellow) 12/13/16 14:30 Urine Turbidity Clear (Clear) 12/13/16 14:30 Urine pH 6.0 (5.0-7.0) 12/13/16 14:30 Ur Specific [place] 1.006 (1.003-1.030) 12/13/16 14:30 Urine Protein <15 mg/dl mg/dL (Negative) 12/13/16 14:30 Urine Glucose (UA) Neg mg/dL (Negative) 12/13/16 14:30 Urine Ketones Neg mg/dL (Negative) 12/13/16 14:30 Urine Blood Neg (Negative) 12/13/16 14:30 Urine Nitrite Neg (Negative) 12/13/16 14:30 Urine Bilirubin Neg (Negative) 12/13/16 14:30 Urine Urobilinogen < 2.0 mg/dL (<2.0) 12/13/16 14:30 Ur Leukocyte Esterase Neg (Negative) 12/13/16 14:30 Urine WBC (Auto) < 1.0 /HPF (0.0-6.0) 12/13/16 14:30 Urine RBC (Auto) < 1.0 /HPF (0.0-6.0) 12/13/16 14:30 Urine Osmolality 233 Mosm/kg 12/13/16 14:30 Urine Creatinine 62.0 mg/dL (0.1-20.0) H 12/13/16 14:30 Urine Sodium 48 mEq/L 12/13/16 14:30 Urine Total Protein < 4 mg/dL (5-11.8) L 12/13/16 14:30 TOBY Screen Negative (Negative) 12/13/16 10:23 Proteinase 3 (PR3) Ab <1.0 AI (<1.0) 12/13/16 10:23 Myeloperoxidase Ab <1.0 AI (<1.0) 12/13/16 10:23 Glomerular Base Mem IgG <1.0 AI (<1.0) 12/13/16 10:23 Complement C3 147 mg/dL (90-180) 12/13/16 10:23 Complement C4 22 mg/dL (16-47) 12/13/16 10:23 HIV 1&2 Antibody Rapid Non react (Non React) 12/14/16 09:17 HIV P24 Antigen Non react (Non React) 12/14/16 09:17 Blood Type B POSITIVE 12/16/16 07:40 Antibody Screen TNR 12/16/16 07:40 JUANI Antibody Screen Negative 12/16/16 07:40 Crossmatch See Detail 12/16/16 07:40
[2016-12-18] MEDS: FOLVITE PO SCH (11:21)
[2016-12-18 14:13] LABS: Anion Gap 16 mmol/L; BUN/Creatinine Ratio 7.77; Blood Urea Nitrogen 7 mg/dL (9-20); Calcium 8.5 mg/dL (8.4-10.2); Carbon Dioxide 24 mmol/L (22-30); Chloride 99.3 mmol/L (98-107); Glucose 73 mg/dL (75-100); Potassium 4.5 mmol/L (3.6-5.0); Sodium 135 mmol/L (137-145)
[2016-12-18 15:36] LABS: Hematocrit 31.8 % (35.5-45.6); Hemoglobin 10.5 gm/dl (11.8-15.2); Mean Corpuscular HGB Conc 33 % (32-34); Mean Corpuscular Hemoglobin 27 pg (28-32); Mean Corpuscular Volume 82 fl (84-94); Platelet Count 410 K/mm3 (140-440); Red Blood Count 3.86 M/mm3 (3.65-5.03); Red Cell Distribution Width 19.6 % (13.2-15.2); White Blood Count 8.4 K/mm3 (4.5-11.0)
--- NOTE | 2016-12-18 17:09 | Consultation ---
History of Present Illness - Reason for Consult Consult date: 12/18/16 - History of Present Illness patient seen/today, resting in bed. He was able to get the first unit of blood before he lost his line. If repeat lab improves to 7.5 or above, he may be able to do ok with that.review of the labs now shows HGB of 10, and stable. Past History Past Medical History: anemia, liver disease, other (gouty arthritis.) Past Surgical History: No surgical history Social history: single, lives with family, alcohol abuse. denies: smoking, prescription drug abuse, IV drug use Family history: no significant family history, other (mother - DM, HTN) Medications and Allergies Allergies Allergy/AdvReac Type Severity Reaction Status Date / Time No Known Allergies Allergy Unverified 05/10/13 08:48 Home Medications Medication Instructions Recorded Confirmed Last Taken Type ALBUTEROL Inhaler [ProAir HFA 2 puff IH QID PRN #1 each 12/01/16 12/12/16 Rx Inhaler] 100 MG Allopurinol 100 PO QDAY 12/13/16 12/12/16 History Amlodipine Besylate 10 mg PO DAILY 12/13/16 12/13/16 Unknown History Folic Acid [Folic Acid] 1 mg PO DAILY 12/13/16 12/13/16 Unknown History Hydrochlorothiazide [HCTZ] 50 mg PO DAILY 12/13/16 12/13/16 Unknown History Indomethacin 25 mg PO TID 12/13/16 12/13/16 Unknown History Levofloxacin [Levaquin] 750 mg PO QDAY MDD 100 mg 12/13/16 12/13/16 12/12/16 History Thiamine [Vitamin B-1] 100 mg PO QDAY 12/13/16 12/13/16 Unknown History Vitamin B-12 1,000 mcg PO DAILY 12/13/16 12/13/16 Unknown History Active Meds: Active Medications Acetaminophen (Tylenol) 650 mg PO Q4H PRN PRN Reason: For Pain/Fever/Headache Last Admin: 12/13/16 13:14 Dose: 650 mg Acetaminophen/Hydrocodone Bitart ([place] 5/325) 1 each PO Q6H PRN PRN Reason: Pain, Moderate (4-6) Last Admin: 12/15/16 16:37 Dose: 1 each Amlodipine Besylate (Norvasc) 10 mg PO QDAY LESLI Last Admin: 12/18/16 09:57 Dose: 10 mg Azithromycin (Zithromax) 500 mg PO QDAY [facility] Last Admin: 12/18/16 09:58 Dose: 500 mg Enoxaparin Sodium (Lovenox) 40 mg SUB-Q QDAY@2200 [facility] Last Admin: 12/17/16 22:50 Dose: 40 mg Folic Acid (Folvite) 1 mg PO QDAY [facility] Last Admin: 12/18/16 11:21 Dose: Not Given Guaifenesin (Robitussin) 200 mg PO Q4H PRN PRN Reason: Cough Hydralazine HCl (Apresoline) 5 mg IV Q6H PRN PRN Reason: Blood Pressure Last Admin: 12/18/16 03:55 Dose: 5 mg Hydrochlorothiazide (Hctz) 25 mg PO QDAY [facility] Last Admin: 12/18/16 09:57 Dose: 25 mg Ceftriaxone Sodium (Rocephin/Ns 1 Gm/50 Ml) 1 gm in 50 mls @ 100 mls/hr IV Q24HR [facility] PRN Reason: Protocol Last Admin: 12/18/16 09:58 Dose: 100 mls/hr Sodium Chloride (Nacl 0.9% 1000 Ml) 1,000 mls @ 50 mls/hr IV DIRECT [facility] Last Admin: 12/16/16 08:13 Dose: 50 mls/hr Magnesium Oxide (Mag-Ox) 400 mg PO BID [facility] Last Admin: 12/18/16 09:58 Dose: 400 mg Multivitamins/Minerals (Theragran-M Tab) 1 each PO QDAY [facility] Last Admin: 12/18/16 09:58 Dose: 1 each Ondansetron HCl (Zofran) 4 mg IV Q8H PRN PRN Reason: Nausea And Vomiting Polyethylene Glycol (Miralax 3350) 17 gm PO BID [facility] Last Admin: 12/18/16 09:57 Dose: 17 gm Thiamine HCl (Vitamin B-1) 100 mg PO QDAY [facility] Last Admin: 12/18/16 09:58 Dose: 100 mg Review of Systems Respiratory: cough Exam - Constitutional Vitals: Temp Pulse Resp BP Pulse Ox 97.6 F 84 20 170/80 97 12/18/16 07:15 12/18/16 09:57 12/18/16 07:15 12/18/16 09:57 07/16/17 12:36 General appearance: Present: no acute distress, well-nourished - EENT Eyes: Present: PERRL ENT: hearing intact, clear oral mucosa - Neck Neck: Present: supple, normal ROM - Respiratory Respiratory effort: normal Respiratory: bilateral: CTA - Cardiovascular Heart Sounds: Present: S1 & S2. Absent: rub, click - Extremities Extremities: pulses symmetrical, No edema Peripheral Pulses: within normal limits - Abdominal General gastrointestinal: Present: soft, non-tender, non-distended, normal bowel sounds Male genitourinary: Present: deferred - Rectal Rectal Exam: deferred - Integumentary Integumentary: Present: clear, warm, dry - Musculoskeletal Musculoskeletal: gait normal, strength equal bilaterally - Psychiatric Psychiatric: appropriate mood/affect, intact judgment & insight - Neurologic Neurologic: CNII-XII intact, moves all extremities Results - Labs CBC & Chem 7: 12/18/16 14:49 12/18/16 13:16 Labs: Abnormal lab results 12/16/16 12/18/16 12/18/16 Range/Units 07:40 13:16 14:49 Hgb 10.5 L D (11.8-15.2) gm/dl Hct 31.8 L D (35.5-45.6) % MCV 82 L D (84-94) fl MCH 27 L (28-32) pg RDW 19.6 H (13.2-15.2) % Sodium 135 L (137-145) mmol/L BUN 7 L (9-20) mg/dL Glucose 73 L (75-100) mg/dL Magnesium 1.50 L (1.7-2.3) mg/dL Crossmatch See Detail Assessment and Plan - Patient Problems (1) ARF (acute renal failure) Current Visit: Yes Status: Acute Qualifiers: Acute renal failure type: A Plan to address problem: Follow renal. improved. (2) Hemoptysis Current Visit: Yes Status: Acute Plan to address problem: follow ID/Pulm, awaiting cultures. improved. (3) Pneumonia Current Visit: Yes Status: Acute Qualifiers: Pneumonia type: due to unspecified organism Aspiration pneumonia type: A Laterality: bilateral Lung location: upper lobe of lung Qualified Code(s): J18.9 - Pneumonia, unspecified organism Plan to address problem: follow pulm. (4) Alcohol dependence with withdrawal delirium Onset Date: 11/05/15 Current Visit: No Status: Acute (5) Anemia Current Visit: No Status: Acute Qualifiers: Anemia type: A Iron deficiency anemia type: I Vitamin B12 deficiency anemia type: V Folate deficiency anemia type: F Bone marrow failure anemia type: B Hemolytic anemia type: H Other causes of anemia: chronic disease, other Chronic kidney disease stage: C Qualified Code(s): D63.8 - Anemia in other chronic diseases classified elsewhere Plan to address problem: Iron replacement, for now, transfusion later if indicated. will do new labs. Will need replacement transfusion. Completed.
[2016-12-18] MEDS: NORCO 5/325 PO PRN (22:21)
[2016-12-18] MEDS: LOVENOX SUB-Q SCH (22:22)
[2016-12-19] MEDS: NORCO 5/325 PO PRN (04:30)
--- NOTE | 2016-12-19 09:26 | Progress Note ---
Assessment and Plan Assessment and plan: AKILAH: * resolved with IV fluids * Avoid nephrotoxins Pneumonia * chest x-ray showed bilateral upper lobe infiltrates * Sputum for AFB negative * Mycobacterial cultures pending * Check fungal and sputum culture * continue airborne isolation, AFB x3, ID and pulmonary consult notes reviewed * continue empiric antibiotics with ceftriaxone and Zithromax * send serum quantiferon. * HIV screen negative on 12/14/16 * s/p Bronchoscopy, follow-up bronchoscopy results. Acute gouty arthritis. Start Colchicine Hypertension * well controlled, continue current medications Anemia of chronic disease * No overt bleeding * transfuse to keep Hg above 7 * Hematology following Hypomagnesemia We'll replete magnesium as needed DVT prophylaxis Lovenox History Interval history: No issues overnight. Patient reports pain in his left ankle that he attributes to gout. Hospitalist Physical - Constitutional Vitals: Temp Pulse Resp BP Pulse Ox 98.0 F 74 18 134/76 98 12/18/16 23:46 12/18/16 23:46 12/19/16 05:30 12/18/16 23:46 12/19/16 09:05 General appearance: Present: no acute distress, well-nourished - EENT Eyes: Present: PERRL, EOM intact ENT: hearing intact, clear oral mucosa, dentition normal - Neck Neck: Present: supple, normal ROM - Respiratory Respiratory effort: normal Respiratory: bilateral: CTA - Cardiovascular Rhythm: regular Heart Sounds: Present: S1 & S2. Absent: gallop, rub - Extremities Extremities: no ischemia, No edema, Full ROM - Abdominal General gastrointestinal: soft, non-tender, non-distended, normal bowel sounds - Integumentary Integumentary: Present: clear, warm, dry - Neurologic Neurologic: CNII-XII intact, moves all extremities Results - Labs CBC & Chem 7: 12/18/16 14:49 12/18/16 13:16 Labs: Laboratory Last Values WBC 8.4 K/mm3 (4.5-11.0) 12/18/16 14:49 RBC 3.86 M/mm3 (3.65-5.03) 12/18/16 14:49 Hgb 10.5 gm/dl (11.8-15.2) L D 12/18/16 14:49 Hct 31.8 % (35.5-45.6) L D 12/18/16 14:49 MCV 82 fl (84-94) L D 12/18/16 14:49 MCH 27 pg (28-32) L 12/18/16 14:49 MCHC 33 % (32-34) 12/18/16 14:49 RDW 19.6 % (13.2-15.2) H 12/18/16 14:49 Plt Count 410 K/mm3 (140-440) 12/18/16 14:49 Lymph % (Auto) 23.2 % (13.4-35.0) 12/17/16 14:39 [place] % (Auto) 11.7 % (0.0-7.3) H 12/17/16 14:39 Eos % (Auto) 9.4 % (0.0-4.3) H 12/17/16 14:39 Baso % (Auto) 1.7 % (0.0-1.8) 12/17/16 14:39 Lymph # 1.6 K/mm3 (1.2-5.4) 12/17/16 14:39 [place] # 0.8 K/mm3 (0.0-0.8) 12/17/16 14:39 Eos # 0.6 K/mm3 (0.0-0.4) H 12/17/16 14:39 Baso # 0.1 K/mm3 (0.0-0.1) 12/17/16 14:39 Seg Neutrophils % 54.0 % (40.0-70.0) 12/17/16 14:39 Seg Neutrophils # 3.7 K/mm3 (1.8-7.7) 12/17/16 14:39 ESR > 140.0 mm/Hr (0-20) 12/14/16 05:40 PT 14.9 Sec. (12.2-14.9) 12/16/16 06:05 INR 1.18 (0.87-1.13) H 12/16/16 06:05 APTT 41.7 Sec. (24.2-36.6) H 12/16/16 06:05 Sodium 135 mmol/L (137-145) L 12/18/16 13:16 Potassium 4.5 mmol/L (3.6-5.0) 12/18/16 13:16 Chloride 99.3 mmol/L (98-107) 12/18/16 13:16 Carbon Dioxide 24 mmol/L (22-30) 12/18/16 13:16 Anion Gap 16 mmol/L 12/18/16 13:16 BUN 7 mg/dL (9-20) L 12/18/16 13:16 Creatinine 0.9 mg/dL (0.8-1.5) 12/18/16 13:16 Estimated GFR > 60 ml/min 12/18/16 13:16 BUN/Creatinine Ratio 7.77 % 12/18/16 13:16 Glucose 73 mg/dL (75-100) L 12/18/16 13:16 Calcium 8.5 mg/dL (8.4-10.2) 12/18/16 13:16 Magnesium 1.50 mg/dL (1.7-2.3) L 12/18/16 13:16 Iron 69 ug/dL (49-181) 12/17/16 14:39 TIBC 218 mcg/dL (250-450) L 12/17/16 14:39 Ferritin 195.6 ng/mL (13.0-400.0) 12/17/16 14:39 Lactate Dehydrogenase 87 units/L (91-180) L 12/14/16 05:40 Troponin T < 0.010 ng/mL (0.00-0.029) 12/13/16 13:25 Vitamin B12 963.5 pg/mL (211-911) H 12/14/16 05:40 RBC Folic Acid 694 ng/mL (>280) 12/14/16 05:40 Urine Color Straw (Yellow) 12/13/16 14:30 Urine Turbidity Clear (Clear) 12/13/16 14:30 Urine pH 6.0 (5.0-7.0) 12/13/16 14:30 Ur Specific [place] 1.006 (1.003-1.030) 12/13/16 14:30 Urine Protein <15 mg/dl mg/dL (Negative) 12/13/16 14:30 Urine Glucose (UA) Neg mg/dL (Negative) 12/13/16 14:30 Urine Ketones Neg mg/dL (Negative) 12/13/16 14:30 Urine Blood Neg (Negative) 12/13/16 14:30 Urine Nitrite Neg (Negative) 12/13/16 14:30 Urine Bilirubin Neg (Negative) 12/13/16 14:30 Urine Urobilinogen < 2.0 mg/dL (<2.0) 12/13/16 14:30 Ur Leukocyte Esterase Neg (Negative) 12/13/16 14:30 Urine WBC (Auto) < 1.0 /HPF (0.0-6.0) 12/13/16 14:30 Urine RBC (Auto) < 1.0 /HPF (0.0-6.0) 12/13/16 14:30 Urine Osmolality 233 Mosm/kg 12/13/16 14:30 Urine Creatinine 62.0 mg/dL (0.1-20.0) H 12/13/16 14:30 Urine Sodium 48 mEq/L 12/13/16 14:30 Urine Total Protein < 4 mg/dL (5-11.8) L 12/13/16 14:30 TOBY Screen Negative (Negative) 12/13/16 10:23 Proteinase 3 (PR3) Ab <1.0 AI (<1.0) 12/13/16 10:23 Myeloperoxidase Ab <1.0 AI (<1.0) 12/13/16 10:23 Glomerular Base Mem IgG <1.0 AI (<1.0) 12/13/16 10:23 Complement C3 147 mg/dL (90-180) 12/13/16 10:23 Complement C4 22 mg/dL (16-47) 12/13/16 10:23 HIV 1&2 Antibody Rapid Non react (Non React) 12/14/16 09:17 HIV P24 Antigen Non react (Non React) 12/14/16 09:17 Blood Type B POSITIVE 12/16/16 07:40 Antibody Screen TNR 12/16/16 07:40 JUANI Antibody Screen Negative 12/16/16 07:40 Crossmatch See Detail 12/16/16 07:40
[2016-12-19] MEDS: ROCEPHIN/NS 1 GM/50 ML 1 GM/50 ML BAG IV SCH (10:23)
[2016-12-19] MEDS: NORVASC PO SCH (10:24)
[2016-12-19] MEDS: THERAGRAN-M Tab PO SCH (10:24)
[2016-12-19] MEDS: HCTZ PO SCH (10:24)
[2016-12-19] MEDS: VITAMIN B-1 PO SCH (10:24)
[2016-12-19] MEDS: MIRALAX 3350 PO SCH ×2 (10:24→23:22)
[2016-12-19] MEDS: FOLVITE PO SCH (10:24)
[2016-12-19] MEDS: MAG-OX PO SCH ×2 (10:25→23:22)
[2016-12-19] MEDS: ZITHROMAX PO SCH (10:25)
[2016-12-19 13:59] LABS: Hematocrit 25.8 % (35.5-45.6); Hemoglobin 9.1 gm/dl (11.8-15.2); Mean Corpuscular HGB Conc 35 % (32-34); Mean Corpuscular Hemoglobin 29 pg (28-32); Mean Corpuscular Volume 81 fl (84-94); Platelet Count 478 K/mm3 (140-440); Red Cell Distribution Width 19.5 % (13.2-15.2); White Blood Count 6.2 K/mm3 (4.5-11.0)
--- NOTE | 2016-12-19 14:02 | Progress Note ---
Assessment and Plan - Patient Problems (1) Pneumonia Current Visit: Yes Status: Acute Qualifiers: Pneumonia type: due to unspecified organism Aspiration pneumonia type: A Laterality: bilateral Lung location: upper lobe of lung Qualified Code(s): J18.9 - Pneumonia, unspecified organism Plan to address problem: 1. Apparent community-acquired, pneumococcal pneumonia as morphorlogy of sputum Gram stain is consistent with this. 2. AFB sputum studies are negative x 3. Okay to discontinue airborne isolation. 3. ANCAs are negative. Cytology report is not accessible. 4. Patient has completed 5 days of therapy. Recommended duration of treatment is 5-7 days. 5. Recommend 2 additional days of treatment, which can be completed with oral Levaquin or Avelox (not Cipro). 6. Discharge is okay from an ID standpoint. I spent ~20 minutes discussing the findings and plan with the patient and with his sister, Belle, by telephone. 7. I will sign off. Please call again if there are additional questions or concerns. Subjective Date of service: 12/19/16 Principal diagnosis: pneumonia/AKILAH Interval history: AFB sputum studies are negative x 3. Patient is clinically much improved over admission baseline. Objective - Constitutional Vitals: Vital Signs Temp Pulse Resp BP Pulse Ox 98.0 F 74 18 134/76 98 12/18/16 23:46 12/18/16 23:46 12/19/16 05:30 12/18/16 23:46 12/19/16 09:05 Temperature -Last 24 Hours Temperature 98.0 F Temperature 98.9 F General appearance: Present: no acute distress, well-nourished - EENT Eyes: no conjunctival injection - Neck Neck: supple - Respiratory Respiratory effort: normal Respiratory: bilateral: CTA, negative: rales, rhonchi - Cardiovascular Rhythm: regular Heart Sounds: Present: S1 & S2 Extremities: No edema - Gastrointestinal General gastrointestinal: Present: soft, non-tender, non-distended - Integumentary Integumentary: clear, no rash - Neurologic Neurologic: moves all extremities - Labs CBC & Chem 7: 12/19/16 13:36 12/19/16 13:36 Labs: Abnormal lab results 12/16/16 12/18/16 12/18/16 Range/Units 07:40 13:16 14:49 Hgb 10.5 L D (11.8-15.2) gm/dl Hct 31.8 L D (35.5-45.6) % MCV 82 L D (84-94) fl MCH 27 L (28-32) pg RDW 19.6 H (13.2-15.2) % Sodium 135 L (137-145) mmol/L BUN 7 L (9-20) mg/dL Glucose 73 L (75-100) mg/dL Magnesium 1.50 L (1.7-2.3) mg/dL Crossmatch See Detail Microbiology 12/16/16 Unknown Bronchial Washings - Left Upper Lobe AFB Smear Concentration - Final 12/16/16 Unknown Bronchial Washings - Left Upper Lobe Respiratory Culture - Preliminary 12/16/16 Unknown Bronchial Washings - Left Upper Lobe Anaerobic Culture - Preliminary 12/12/16 22:46 Peripheral/Venous Blood Culture - Final NO GROWTH AFTER 5 DAYS 12/12/16 22:46 Peripheral/Venous Blood Culture - Final NO GROWTH AFTER 5 DAYS 12/14/16 22:00 Sputum - Expectorated Sputum AFB Smear Concentration - Final 12/14/16 Unknown Sputum - Expectorated Sputum AFB Smear Concentration - Final 12/13/16 11:38 Peripheral/Venous AFB Smear Concentration - Final 12/14/16 Unknown Sputum - Expectorated Sputum Sputum Culture - Final Cytology - unable to open report - Imaging and cardiology Chest x-ray: report reviewed (no change)
[2016-12-19 14:13] LABS: BUN/Creatinine Ratio 7.77; Blood Urea Nitrogen 7 mg/dL (9-20); Calcium 8.1 mg/dL (8.4-10.2); Carbon Dioxide 21 mmol/L (22-30); Glucose 99 mg/dL (75-100)
[2016-12-19 14:14] LABS: Anion Gap 19 mmol/L; Chloride 101.5 mmol/L (98-107); Potassium 4.5 mmol/L (3.6-5.0); Sodium 137 mmol/L (137-145)
[2016-12-19] MEDS: NACL 0.9% 1000 ML 1,000 ML IV SCH (14:34)
[2016-12-19 14:47] LABS: Blastocytes % (Manual) 0 %
[2016-12-19 14:48] LABS: Diff Status Complete; Hypochromasia 1+; Ovalocytes Rare; Platelet Estimate Consistent w Auto
--- NOTE | 2016-12-19 18:47 | Progress Note ---
Assessment and Plan Imp: 1. Pneumonia, r/o other causes 2. Hemoptysis 3. AKILAH, resolved 4. Hyponatremia 5. Microcytic anemia Rec: 1. Cont. current ABX 2. F/u cultures 3. CT chest w/o contrast to exclude tumor; bronch wash cytology neg Plan of care reviewed w/ patient, he understands/agrees Subjective Date of service: 12/19/16 Principal diagnosis: pneumonia/AKILAH Interval history: No events. Hemoptysis and cough better but not resolved. No chest pain, new complaints. Active Medications Acetaminophen (Tylenol) 650 mg PO Q4H PRN PRN Reason: For Pain/Fever/Headache Last Admin: 12/13/16 13:14 Dose: 650 mg Acetaminophen/Hydrocodone Bitart ([place] 5/325) 1 each PO Q6H PRN PRN Reason: Pain, Moderate (4-6) Last Admin: 12/19/16 04:30 Dose: 1 each Amlodipine Besylate (Norvasc) 10 mg PO QDAY [facility] Last Admin: 12/19/16 10:24 Dose: 10 mg Colchicine (Colcrys) 0.6 mg PO BID [facility] Enoxaparin Sodium (Lovenox) 40 mg SUB-Q QDAY@2200 [facility] Last Admin: 12/18/16 22:22 Dose: 40 mg Folic Acid (Folvite) 1 mg PO QDAY [facility] Last Admin: 12/19/16 10:24 Dose: 1 mg Guaifenesin (Robitussin) 200 mg PO Q4H PRN PRN Reason: Cough Last Admin: 12/18/16 22:23 Dose: 200 mg Hydralazine HCl (Apresoline) 5 mg IV Q6H PRN PRN Reason: Blood Pressure Last Admin: 12/18/16 03:55 Dose: 5 mg Hydrochlorothiazide (Hctz) 25 mg PO QDAY [facility] Last Admin: 12/19/16 10:24 Dose: 25 mg Sodium Chloride (Nacl 0.9% 1000 Ml) 1,000 mls @ 50 mls/hr IV DIRECT [facility] Last Admin: 12/19/16 14:34 Dose: 50 mls/hr Levofloxacin (Levaquin) 500 mg PO Q24HR [facility] Magnesium Oxide (Mag-Ox) 400 mg PO BID [facility] Last Admin: 12/19/16 10:25 Dose: 400 mg Multivitamins/Minerals (Theragran-M Tab) 1 each PO QDAY [facility] Last Admin: 12/19/16 10:24 Dose: 1 each Ondansetron HCl (Zofran) 4 mg IV Q8H PRN PRN Reason: Nausea And Vomiting Polyethylene Glycol (Miralax 3350) 17 gm PO BID [facility] Last Admin: 12/19/16 10:24 Dose: 17 gm Thiamine HCl (Vitamin B-1) 100 mg PO QDAY [facility] Last Admin: 12/19/16 10:24 Dose: 100 mg Objective Vital Signs - 12hr 12/19/16 12/19/16 09:05 16:00 Temperature 97.4 F L Pulse Rate [ 81 Left Radial] Respiratory 20 Rate Blood Pressure 133/78 [Left Arm] O2 Sat by Pulse 98 Oximetry Constitutional: no acute distress, alert ENT: other (poor dentition) Effort: normal Ascultation: Bilateral: rhonchi (upper lobes) Cardiovascular: regular rate and rhythm (no mrg) Gastrointestinal: normoactive bowel sounds Integumentary: normal Extremities: no cyanosis, no edema, pink and warm Neurologic: normal mental status, non-focal exam Psychiatric: mood appropriate, affect normal CBC and BMP: 12/19/16 13:36 12/19/16 13:36 ABG, PT/INR, D-dimer: PT/INR, D-dimer PT 14.9 Sec. (12.2-14.9) 12/16/16 06:05 INR 1.18 (0.87-1.13) H 12/16/16 06:05 Abnormal lab findings: Abnormal Labs 12/13/16 12/13/16 12/14/16 07:33 14:30 05:40 RBC Hgb Hct MCV MCH MCHC RDW Plt Count [place] % (Auto) Eos % (Auto) Baso % (Auto) Lymph # Eos # Eosinophils % (Manual) Eosinophils # (Manual) PT INR APTT Sodium 133 L Chloride 97.7 L Carbon Dioxide 21 L BUN 26 H Creatinine 2.3 H Glucose Calcium 7.3 L Magnesium Iron 35 L TIBC 177 L Lactate Dehydrogenase Vitamin B12 Urine Creatinine 62.0 H Urine Total Protein < 4 L Crossmatch 12/14/16 12/14/16 12/14/16 05:40 05:40 05:40 RBC Hgb Hct MCV MCH MCHC RDW Plt Count [place] % (Auto) Eos % (Auto) Baso % (Auto) Lymph # Eos # Eosinophils % (Manual) Eosinophils # (Manual) PT INR APTT Sodium Chloride Carbon Dioxide BUN Creatinine Glucose Calcium Magnesium 1.30 L Iron TIBC Lactate Dehydrogenase 87 L Vitamin B12 963.5 H Urine Creatinine Urine Total Protein Crossmatch 12/14/16 12/14/16 12/14/16 05:40 05:40 11:15 RBC 2.94 L Hgb 7.7 L Hct 23.8 L MCV 81 L MCH 26 L MCHC RDW 17.7 H Plt Count [place] % (Auto) 11.2 H Eos % (Auto) 5.7 H Baso % (Auto) 1.9 H Lymph # 1.0 L Eos # Eosinophils % (Manual) Eosinophils # (Manual) PT 15.9 H INR 1.21 H APTT 40.4 H Sodium 134 L Chloride Carbon Dioxide 21 L BUN Creatinine Glucose Calcium 7.5 L Magnesium Iron TIBC Lactate Dehydrogenase Vitamin B12 Urine Creatinine Urine Total Protein Crossmatch 12/15/16 12/16/16 12/16/16 10:44 06:05 07:40 RBC Hgb Hct MCV MCH MCHC RDW Plt Count [place] % (Auto) Eos % (Auto) Baso % (Auto) Lymph # Eos # Eosinophils % (Manual) Eosinophils # (Manual) PT INR 1.18 H APTT 41.7 H Sodium 135 L Chloride Carbon Dioxide 19 L BUN Creatinine Glucose 103 H Calcium 7.1 L Magnesium 1.30 L Iron TIBC Lactate Dehydrogenase Vitamin B12 Urine Creatinine Urine Total Protein Crossmatch See Detail 12/17/16 12/17/16 12/17/16 14:39 14:39 14:39 RBC 2.58 L Hgb 6.9 L Hct 20.3 L MCV 79 L MCH 27 L MCHC RDW 18.5 H Plt Count [place] % (Auto) 11.7 H Eos % (Auto) 9.4 H Baso % (Auto) Lymph # Eos # 0.6 H Eosinophils % (Manual) Eosinophils # (Manual) PT INR APTT Sodium Chloride Carbon Dioxide 19 L BUN 8 L Creatinine Glucose Calcium 7.4 L Magnesium Iron TIBC 218 L Lactate Dehydrogenase Vitamin B12 Urine Creatinine Urine Total Protein Crossmatch 12/18/16 12/18/16 12/19/16 13:16 14:49 13:36 RBC 3.20 L Hgb 10.5 L D 9.1 L Hct 31.8 L D 25.8 L D MCV 82 L D 81 L MCH 27 L MCHC 35 H RDW 19.6 H 19.5 H Plt Count 478 H [place] % (Auto) Eos % (Auto) Baso % (Auto) Lymph # Eos # Eosinophils % (Manual) 8.0 H Eosinophils # (Manual) 0.5 H PT INR APTT Sodium 135 L Chloride Carbon Dioxide BUN 7 L Creatinine Glucose 73 L Calcium Magnesium 1.50 L Iron TIBC Lactate Dehydrogenase Vitamin B12 Urine Creatinine Urine Total Protein Crossmatch 12/19/16 13:36 RBC Hgb Hct MCV MCH MCHC RDW Plt Count [place] % (Auto) Eos % (Auto) Baso % (Auto) Lymph # Eos # Eosinophils % (Manual) Eosinophils # (Manual) PT INR APTT Sodium Chloride Carbon Dioxide 21 L BUN 7 L Creatinine Glucose Calcium 8.1 L Magnesium Iron TIBC Lactate Dehydrogenase Vitamin B12 Urine Creatinine Urine Total Protein Crossmatch Chest x-ray: report reviewed, image reviewed
--- NOTE | 2016-12-19 22:20 | Cat Scan Report ---
FINAL REPORT PROCEDURE: CT CHEST WO CON TECHNIQUE: Computerized axial tomography of the chest was performed without contrast material. This study is performed without intravenous contrast and the sensitivity for pathology, including neoplasms, adenopathy, abscess, pulmonary embolism and aortic dissection, is reduced. HISTORY: Hemoptysis, r/o mass COMPARISON: Chest x-ray dated November 06, 2015 TECHNICAL QUALITY: Satisfactory. FINDINGS: Lung consolidation with air bronchograms is seen in the left lung apex and right upper lobe of the lungs. While findings could represent lobar pneumonia, consideration should be given to tuberculosis given the upper lobe distribution and hemoptysis. There is mild alveolar opacity medially at the right lung base that may be from infection or atelectasis. Other mild areas of atelectasis are suspected in the right lower lobe of the lungs. No pleural effusion is seen. Cholelithiasis is seen without evidence of cholecystitis. There is likely moderate constipation. The heart and thoracic aorta are normal in size. Likely reactive mediastinal lymph nodes are seen. IMPRESSION: Upper lobe infiltrates are seen that are worrisome for possible tuberculosis. Less likely findings are due to lobar pneumonia. There may be mild involvement of the right lower lobe of the lungs, also. Malignancy would be unlikely cause for the infiltrates.
--- NOTE | 2016-12-19 23:12 | Consultation ---
History of Present Illness - Reason for Consult Consult date: 12/19/16 - History of Present Illness patient seen/examined, labs reviewed, case d/w patient.no new issues . Past History Past Medical History: anemia, liver disease, other (gouty arthritis.) Past Surgical History: No surgical history Social history: single, lives with family, alcohol abuse. denies: smoking, prescription drug abuse, IV drug use Family history: no significant family history, other (mother - DM, HTN) Medications and Allergies Allergies Allergy/AdvReac Type Severity Reaction Status Date / Time No Known Allergies Allergy Unverified 05/10/13 08:48 Home Medications Medication Instructions Recorded Confirmed Last Taken Type ALBUTEROL Inhaler [ProAir HFA 2 puff IH QID PRN #1 each 12/01/16 12/12/16 Rx Inhaler] 100 MG Allopurinol 100 PO QDAY 12/13/16 12/12/16 History Amlodipine Besylate 10 mg PO DAILY 12/13/16 12/13/16 Unknown History Folic Acid [Folic Acid] 1 mg PO DAILY 12/13/16 12/13/16 Unknown History Hydrochlorothiazide [HCTZ] 50 mg PO DAILY 12/13/16 12/13/16 Unknown History Indomethacin 25 mg PO TID 12/13/16 12/13/16 Unknown History Levofloxacin [Levaquin] 750 mg PO QDAY MDD 100 mg 12/13/16 12/13/16 12/12/16 History Thiamine [Vitamin B-1] 100 mg PO QDAY 12/13/16 12/13/16 Unknown History Vitamin B-12 1,000 mcg PO DAILY 12/13/16 12/13/16 Unknown History Active Meds: Active Medications Acetaminophen (Tylenol) 650 mg PO Q4H PRN PRN Reason: For Pain/Fever/Headache Last Admin: 12/13/16 13:14 Dose: 650 mg Acetaminophen/Hydrocodone Bitart ([place] 5/325) 1 each PO Q6H PRN PRN Reason: Pain, Moderate (4-6) Last Admin: 12/19/16 04:30 Dose: 1 each Amlodipine Besylate (Norvasc) 10 mg PO QDAY [facility] Last Admin: 12/19/16 10:24 Dose: 10 mg Colchicine (Colcrys) 0.6 mg PO BID [facility] Enoxaparin Sodium (Lovenox) 40 mg SUB-Q QDAY@2200 [facility] Last Admin: 12/18/16 22:22 Dose: 40 mg Folic Acid (Folvite) 1 mg PO QDAY [facility] Last Admin: 12/19/16 10:24 Dose: 1 mg Guaifenesin (Robitussin) 200 mg PO Q4H PRN PRN Reason: Cough Last Admin: 12/18/16 22:23 Dose: 200 mg Hydralazine HCl (Apresoline) 5 mg IV Q6H PRN PRN Reason: Blood Pressure Last Admin: 12/18/16 03:55 Dose: 5 mg Hydrochlorothiazide (Hctz) 25 mg PO QDAY [facility] Last Admin: 12/19/16 10:24 Dose: 25 mg Sodium Chloride (Nacl 0.9% 1000 Ml) 1,000 mls @ 50 mls/hr IV DIRECT [facility] Last Admin: 12/19/16 14:34 Dose: 50 mls/hr Levofloxacin (Levaquin) 500 mg PO Q24HR [facility] Magnesium Oxide (Mag-Ox) 400 mg PO BID [facility] Last Admin: 12/19/16 10:25 Dose: 400 mg Multivitamins/Minerals (Theragran-M Tab) 1 each PO QDAY [facility] Last Admin: 12/19/16 10:24 Dose: 1 each Ondansetron HCl (Zofran) 4 mg IV Q8H PRN PRN Reason: Nausea And Vomiting Polyethylene Glycol (Miralax 3350) 17 gm PO BID [facility] Last Admin: 12/19/16 10:24 Dose: 17 gm Thiamine HCl (Vitamin B-1) 100 mg PO QDAY [facility] Last Admin: 12/19/16 10:24 Dose: 100 mg Review of Systems Respiratory: cough Exam - Constitutional Vitals: Temp Pulse Resp BP Pulse Ox 97.4 F L 81 20 133/78 98 12/19/16 16:00 12/19/16 16:00 12/19/16 16:00 12/19/16 16:00 12/19/16 09:05 General appearance: Present: no acute distress - EENT Eyes: Present: PERRL ENT: hearing intact, clear oral mucosa - Neck Neck: Present: supple, normal ROM - Respiratory Respiratory: bilateral: CTA - Cardiovascular Heart Sounds: Present: S1 & S2. Absent: rub, click - Extremities Extremities: pulses symmetrical, No edema Peripheral Pulses: within normal limits - Abdominal General gastrointestinal: Present: soft, non-tender, non-distended, normal bowel sounds Male genitourinary: Present: deferred - Rectal Rectal Exam: deferred - Integumentary Integumentary: Present: clear, warm, dry - Musculoskeletal Musculoskeletal: gait normal, strength equal bilaterally - Psychiatric Psychiatric: appropriate mood/affect, intact judgment & insight - Neurologic Neurologic: CNII-XII intact, moves all extremities Results - Labs CBC & Chem 7: 12/19/16 13:36 12/19/16 13:36 Labs: Abnormal lab results 12/16/16 12/19/16 12/19/16 Range/Units 07:40 13:36 13:36 RBC 3.20 L (3.65-5.03) M/mm3 Hgb 9.1 L (11.8-15.2) gm/dl Hct 25.8 L D (35.5-45.6) % MCV 81 L (84-94) fl MCHC 35 H (32-34) % RDW 19.5 H (13.2-15.2) % Plt Count 478 H (140-440) K/mm3 Eosinophils % (Manual) 8.0 H (0.0-4.3) % Eosinophils # (Manual) 0.5 H (0.0-0.4) K/mm3 Carbon Dioxide 21 L (22-30) mmol/L BUN 7 L (9-20) mg/dL Calcium 8.1 L (8.4-10.2) mg/dL Crossmatch See Detail Assessment and Plan - Patient Problems (1) ARF (acute renal failure) Current Visit: Yes Status: Acute Qualifiers: Acute renal failure type: A Plan to address problem: Follow renal. improved. (2) Hemoptysis Current Visit: Yes Status: Acute Plan to address problem: follow ID/Pulm, awaiting cultures. improved. (3) Pneumonia Current Visit: Yes Status: Acute Qualifiers: Pneumonia type: due to unspecified organism Aspiration pneumonia type: A Laterality: bilateral Lung location: upper lobe of lung Qualified Code(s): J18.9 - Pneumonia, unspecified organism Plan to address problem: follow pulm. (4) Alcohol dependence with withdrawal delirium Onset Date: 11/05/15 Current Visit: No Status: Acute (5) Anemia Current Visit: No Status: Acute Qualifiers: Anemia type: A Iron deficiency anemia type: I Vitamin B12 deficiency anemia type: V Folate deficiency anemia type: F Bone marrow failure anemia type: B Hemolytic anemia type: H Other causes of anemia: chronic disease, other Chronic kidney disease stage: C Qualified Code(s): D63.8 - Anemia in other chronic diseases classified elsewhere Plan to address problem: Iron replacement, for now, transfusion later if indicated. will do new labs. Will need replacement transfusion. Completed.
[2016-12-19] MEDS: COLCRYS PO SCH (23:22)
[2016-12-19] MEDS: LOVENOX SUB-Q SCH (23:22)
[2016-12-20 07:15] LABS: Hematocrit 27.7 % (35.5-45.6); Hemoglobin 9.4 gm/dl (11.8-15.2); Mean Corpuscular HGB Conc 34 % (32-34); Mean Corpuscular Hemoglobin 28 pg (28-32); Mean Corpuscular Volume 81 fl (84-94); Platelet Count 491 K/mm3 (140-440); Red Blood Count 3.41 M/mm3 (3.65-5.03); Red Cell Distribution Width 19.7 % (13.2-15.2); White Blood Count 5.6 K/mm3 (4.5-11.0)
[2016-12-20 07:50] LABS: Anion Gap 21 mmol/L; BUN/Creatinine Ratio 8.88; Blood Urea Nitrogen 8 mg/dL (9-20); Calcium 8.7 mg/dL (8.4-10.2); Carbon Dioxide 22 mmol/L (22-30); Chloride 101.5 mmol/L (98-107); Glucose 70 mg/dL (75-100); Potassium 4.8 mmol/L (3.6-5.0); Sodium 140 mmol/L (137-145)
[2016-12-20 08:47] LABS: Blastocytes % (Manual) 0 %; Hypochromasia 1+
[2016-12-20 08:48] LABS: Diff Status Complete
[2016-12-20] MEDS: COLCRYS PO SCH (09:49)
[2016-12-20] MEDS: NORVASC PO SCH (09:49)
[2016-12-20] MEDS: MAG-OX PO SCH (09:49)
[2016-12-20] MEDS: FOLVITE PO SCH (09:49)
[2016-12-20] MEDS: THERAGRAN-M Tab PO SCH (09:49)
[2016-12-20] MEDS: HCTZ PO SCH (09:49)
[2016-12-20] MEDS: VITAMIN B-1 PO SCH (09:49)
[2016-12-20] MEDS: MIRALAX 3350 PO SCH (09:49)
[2016-12-20] MEDS ORDERED: LEVAQUIN PO SCH (10:00)
[2016-12-20 11:08] VITALS: BP 141/81
--- NOTE | 2016-12-20 11:48 | Discharge Summary ---
Providers - Providers Date of Admission: 12/12/16 22:44 Date of discharge: 12/20/16 Attending physician: MOHINDER LEBLANC 12/13/16 06:18 Consult to Physician [CONS] Routine Consulting Provider: VENICE ANAYA Reason For Exam: ACUTE RENAL fAILURE Place consult to:: DR. MARISCAL Notified:: DR. MARISCAL Phone number called:: IN HOUSE Was contact made?: Yes If yes, spoke with:: DR. MARISCAL Time called:: 09:24 12/14/16 08:28 Consult to Physician [CONS] Routine Consulting Provider: PEÑA GRANDE Reason For Exam: Suspected TB Place consult to:: DR. GRANDE Notified:: DR. GRANDE Phone number called:: IN HOUSE Was contact made?: Yes If yes, spoke with:: DR. GRANDE Time called:: 08:56 Comment:: FREDDIE NOTIFMACRINA Consult to Physician [CONS] Routine Consulting Provider: XANDER HILL Reason For Exam: suspected TB Place consult to:: DR. PEDERSON Notified:: DR. PEDERSON Phone number called:: IN HOUSE Was contact made?: Yes If yes, spoke with:: DR. HILL Time called:: 08:51 Comment:: NOTIFIED Primary care physician: DIAGNOSTIC CARDIAC SONOGRAPHER Hospitalization Condition: Stable Hospital course: Patient is a 56-year-old man who presents with shortness of breath cough and hemoptysis. He was placed in airborne isolation to rule out TB. Initially, it was stated that patient had no prior medical conditions per H-n-P; however, his PCP, Dr. Portillo was consulted and noted that he has a history of alcohol abuse, liver disease, gouty arthritis and anemia. Chest x-ray showed stable RUL opacity with new BHUPENDRA opacity. Since patient has history of alcohol abuse with pneumonia located in bilateral upper lobes; therefore, this most likely represents aspiration pneumonitis, present on admission. Patient underwent bronchoscopy on 12/16/[address] Grande, cultures have been negative, AFB was negative; therefore, ruled out tuberculosis. Patient has been cleared by infectious disease for discharge. 12/19/2016 CT chest without contrast reported as upper lobe infiltrative seen worsen for possible tuberculosis. Less likely findings are due to lobar pneumonia, there may be mild involvement of the right lower lobe of the lungs also. Malignancy would be unlikely cause for any infiltrates. D/c Diagnosis: -Bilateral aspiration pneumonitis -Acute renal failure with ATN, present on admission -Acute on chronic worsening of Anemia of chronic disease status post 1 unit of blood -Alcohol abuse: Counseled done "per ID physician, Dr. Hill (1) Pneumonia Current Visit: Yes Status: Acute Qualifiers: Pneumonia type: due to unspecified organism Aspiration pneumonia type: A Laterality: bilateral Lung location: upper lobe of lung Qualified Code(s): J18.9 - Pneumonia, unspecified organism Plan to address problem: 1. Apparent community-acquired, pneumococcal pneumonia as morphorlogy of sputum Gram stain is consistent with this. 2. AFB sputum studies are negative x 3. Okay to discontinue airborne isolation. 3. ANCAs are negative. Cytology report is not accessible. 4. Patient has completed 5 days of therapy. Recommended duration of treatment is 5-7 days. 5. Recommend 2 additional days of treatment, which can be completed with oral Levaquin or Avelox (not Cipro). 6. Discharge is okay from an ID standpoint. I spent ~20 minutes discussing the findings and plan with the patient and with his sister, Belle, by telephone. 7. I will sign off. Please call again if there are additional questions or concerns." Disposition: DC-01 TO HOME OR SELFCARE Time spent for discharge: 40 minutes Core Measure Documentation - Palliative Care Palliative Care/ Comfort Measures: Not Applicable - Core Measures Any of the following diagnoses?: none - VTE Discharge Requirements Deep Vein Thrombosis/Pulmonary Embolism Present on Admission: No Has pt received <5 days of overlap therapy or INR<2.0: No Anticoagulant overlap therapy prescribed at discharge: No Contraindication No Overlap Therapy order at DC: Not Indicated Exam - Physical Exam Narrative exam: GEN: WDWN, NAD, AWAKE, ALERT, ORIENTATED x 3 HEENT: NCAT, PERRL, EOMI, OP CLEAR NECK: SUPPLE, NO THYROMEGALY, NO JVD, NO LAD CVS: RRR, NORMAL S1S2 LUNGS/CHEST: CTA B (different from CT, lungs are clear to me), NORMAL CHEST EXPANSION B, GOOD AIR ENTRY B ABD: SOFT, NTND, GBS, NO REBOUND OR GUARDING EXT/SKIN: NO SIGNIFICANT EDEMA OR RASH MSK: FROM X 4 EXTREMITIES NEURO: CN 2-12 GROSSLY INTACT, NO FOCAL DEFICITS PSY: CALM - Constitutional Vitals: Temp Pulse Resp BP Pulse Ox 98.4 F 79 19 141/81 99 12/20/16 07:00 12/20/16 07:00 12/20/16 07:00 12/20/16 07:00 12/20/16 07:00 Plan Activity: other (no strenous activites until cleared by PCP. ) Diet: regular Follow up with: PRIMARY CARE, [Primary Care Provider] - 3-5 Days Prescriptions: Colchicine [Colcrys] 0.6 mg PO DAILY #30 tablet Hydrochlorothiazide [HCTZ] 25 mg PO QDAY #30 tablet HYDROcodone/APAP 5-325 [[place] 5-325 mg TAB] 1 each PO Q6H PRN #30 tablet PRN Reason: Pain , Severe (7-10) Levofloxacin [Levaquin TAB] 750 mg PO QDAY #2 tablet MDD 100 mg
--- NOTE | 2016-12-20 12:40 | Progress Note ---
Assessment and Plan Imp: 1. Pneumonia 2. Hemoptysis 3. AKILAH, resolved 4. Hyponatremia 5. Microcytic anemia Rec: 1. Would complete 8 to 10 days of ABX and finish the course orally at d/c 2. F/u final AFB and fungal cultures, can be done as outpatient 3. CT chest does not show obvious evidence of malignancy; will need f/u CXR in 1 -2 weeks post-d/c Plan of care reviewed w/ patient, he understands/agrees Subjective Date of service: 12/20/16 Principal diagnosis: pneumonia/AKILAH Interval history: No events. Hemoptysis and cough better but not resolved. No chest pain, new complaints. On RA. Active Medications Acetaminophen (Tylenol) 650 mg PO Q4H PRN PRN Reason: For Pain/Fever/Headache Last Admin: 12/13/16 13:14 Dose: 650 mg Acetaminophen/Hydrocodone Bitart ([place] 5/325) 1 each PO Q6H PRN PRN Reason: Pain, Moderate (4-6) Last Admin: 12/19/16 04:30 Dose: 1 each Amlodipine Besylate (Norvasc) 10 mg PO QDAY [facility] Last Admin: 12/20/16 09:49 Dose: 10 mg Colchicine (Colcrys) 0.6 mg PO BID [facility] Last Admin: 12/20/16 09:49 Dose: 0.6 mg Enoxaparin Sodium (Lovenox) 40 mg SUB-Q QDAY@2200 [facility] Last Admin: 12/19/16 23:22 Dose: 40 mg Folic Acid (Folvite) 1 mg PO QDAY [facility] Last Admin: 12/20/16 09:49 Dose: 1 mg Guaifenesin (Robitussin) 200 mg PO Q4H PRN PRN Reason: Cough Last Admin: 12/18/16 22:23 Dose: 200 mg Hydralazine HCl (Apresoline) 5 mg IV Q6H PRN PRN Reason: Blood Pressure Last Admin: 12/18/16 03:55 Dose: 5 mg Hydrochlorothiazide (Hctz) 25 mg PO QDAY [facility] Last Admin: 12/20/16 09:49 Dose: 25 mg Sodium Chloride (Nacl 0.9% 1000 Ml) 1,000 mls @ 50 mls/hr IV DIRECT [facility] Last Admin: 12/19/16 14:34 Dose: 50 mls/hr Levofloxacin (Levaquin) 500 mg PO Q24HR [facility] Last Admin: 12/20/16 09:49 Dose: 500 mg Magnesium Oxide (Mag-Ox) 400 mg PO BID [facility] Last Admin: 12/20/16 09:49 Dose: 400 mg Multivitamins/Minerals (Theragran-M Tab) 1 each PO QDAY [facility] Last Admin: 12/20/16 09:49 Dose: 1 each Ondansetron HCl (Zofran) 4 mg IV Q8H PRN PRN Reason: Nausea And Vomiting Polyethylene Glycol (Miralax 3350) 17 gm PO BID [facility] Last Admin: 12/20/16 09:49 Dose: 17 gm Thiamine HCl (Vitamin B-1) 100 mg PO QDAY [facility] Last Admin: 12/20/16 09:49 Dose: 100 mg Objective Vital Signs - 12hr 12/20/16 07:00 Temperature 98.4 F Pulse Rate [ 79 Left Radial] Respiratory 19 Rate Blood Pressure 141/81 [Left Arm] O2 Sat by Pulse 99 Oximetry Constitutional: no acute distress, alert ENT: other (poor dentition) Effort: normal Ascultation: Bilateral: rhonchi (upper lobes) Cardiovascular: regular rate and rhythm (no mrg) Gastrointestinal: normoactive bowel sounds Integumentary: normal Extremities: no cyanosis, no edema, pink and warm Neurologic: normal mental status, non-focal exam Psychiatric: mood appropriate, affect normal CBC and BMP: 12/20/16 07:02 12/20/16 07:02 ABG, PT/INR, D-dimer: PT/INR, D-dimer PT 14.9 Sec. (12.2-14.9) 12/16/16 06:05 INR 1.18 (0.87-1.13) H 12/16/16 06:05 Abnormal lab findings: Abnormal Labs 12/13/16 12/13/16 12/14/16 07:33 14:30 05:40 RBC Hgb Hct MCV MCH MCHC RDW Plt Count [place] % (Auto) Eos % (Auto) Baso % (Auto) Lymph # Eos # Lymphocytes % (Manual) Eosinophils % (Manual) Basophils % (Manual) Lymphocytes # (Manual) Eosinophils # (Manual) Basophils # (Manual) PT INR APTT Sodium 133 L Chloride 97.7 L Carbon Dioxide 21 L BUN 26 H Creatinine 2.3 H Glucose Calcium 7.3 L Magnesium Iron 35 L TIBC 177 L Lactate Dehydrogenase Vitamin B12 Urine Creatinine 62.0 H Urine Total Protein < 4 L Crossmatch 12/14/16 12/14/16 12/14/16 05:40 05:40 05:40 RBC Hgb Hct MCV MCH MCHC RDW Plt Count [place] % (Auto) Eos % (Auto) Baso % (Auto) Lymph # Eos # Lymphocytes % (Manual) Eosinophils % (Manual) Basophils % (Manual) Lymphocytes # (Manual) Eosinophils # (Manual) Basophils # (Manual) PT INR APTT Sodium Chloride Carbon Dioxide BUN Creatinine Glucose Calcium Magnesium 1.30 L Iron TIBC Lactate Dehydrogenase 87 L Vitamin B12 963.5 H Urine Creatinine Urine Total Protein Crossmatch 12/14/16 12/14/16 12/14/16 05:40 05:40 11:15 RBC 2.94 L Hgb 7.7 L Hct 23.8 L MCV 81 L MCH 26 L MCHC RDW 17.7 H Plt Count [place] % (Auto) 11.2 H Eos % (Auto) 5.7 H Baso % (Auto) 1.9 H Lymph # 1.0 L Eos # Lymphocytes % (Manual) Eosinophils % (Manual) Basophils % (Manual) Lymphocytes # (Manual) Eosinophils # (Manual) Basophils # (Manual) PT 15.9 H INR 1.21 H APTT 40.4 H Sodium 134 L Chloride Carbon Dioxide 21 L BUN Creatinine Glucose Calcium 7.5 L Magnesium Iron TIBC Lactate Dehydrogenase Vitamin B12 Urine Creatinine Urine Total Protein Crossmatch 12/15/16 12/16/16 12/16/16 10:44 06:05 07:40 RBC Hgb Hct MCV MCH MCHC RDW Plt Count [place] % (Auto) Eos % (Auto) Baso % (Auto) Lymph # Eos # Lymphocytes % (Manual) Eosinophils % (Manual) Basophils % (Manual) Lymphocytes # (Manual) Eosinophils # (Manual) Basophils # (Manual) PT INR 1.18 H APTT 41.7 H Sodium 135 L Chloride Carbon Dioxide 19 L BUN Creatinine Glucose 103 H Calcium 7.1 L Magnesium 1.30 L Iron TIBC Lactate Dehydrogenase Vitamin B12 Urine Creatinine Urine Total Protein Crossmatch See Detail 12/17/16 12/17/16 12/17/16 14:39 14:39 14:39 RBC 2.58 L Hgb 6.9 L Hct 20.3 L MCV 79 L MCH 27 L MCHC RDW 18.5 H Plt Count [place] % (Auto) 11.7 H Eos % (Auto) 9.4 H Baso % (Auto) Lymph # Eos # 0.6 H Lymphocytes % (Manual) Eosinophils % (Manual) Basophils % (Manual) Lymphocytes # (Manual) Eosinophils # (Manual) Basophils # (Manual) PT INR APTT Sodium Chloride Carbon Dioxide 19 L BUN 8 L Creatinine Glucose Calcium 7.4 L Magnesium Iron TIBC 218 L Lactate Dehydrogenase Vitamin B12 Urine Creatinine Urine Total Protein Crossmatch 12/18/16 12/18/16 12/19/16 13:16 14:49 13:36 RBC 3.20 L Hgb 10.5 L D 9.1 L Hct 31.8 L D 25.8 L D MCV 82 L D 81 L MCH 27 L MCHC 35 H RDW 19.6 H 19.5 H Plt Count 478 H [place] % (Auto) Eos % (Auto) Baso % (Auto) Lymph # Eos # Lymphocytes % (Manual) Eosinophils % (Manual) 8.0 H Basophils % (Manual) Lymphocytes # (Manual) Eosinophils # (Manual) 0.5 H Basophils # (Manual) PT INR APTT Sodium 135 L Chloride Carbon Dioxide BUN 7 L Creatinine Glucose 73 L Calcium Magnesium 1.50 L Iron TIBC Lactate Dehydrogenase Vitamin B12 Urine Creatinine Urine Total Protein Crossmatch 12/19/16 12/20/16 12/20/16 13:36 07:02 07:02 RBC 3.41 L Hgb 9.4 L Hct 27.7 L MCV 81 L MCH MCHC RDW 19.7 H Plt Count 491 H [place] % (Auto) Eos % (Auto) Baso % (Auto) Lymph # Eos # Lymphocytes % (Manual) 13.0 L Eosinophils % (Manual) 10.0 H Basophils % (Manual) 3.0 H Lymphocytes # (Manual) 0.7 L Eosinophils # (Manual) 0.6 H Basophils # (Manual) 0.2 H PT INR APTT Sodium Chloride Carbon Dioxide 21 L BUN 7 L 8 L Creatinine Glucose 70 L Calcium 8.1 L Magnesium Iron TIBC Lactate Dehydrogenase Vitamin B12 Urine Creatinine Urine Total Protein Crossmatch Chest x-ray: report reviewed, image reviewed CT scan - chest: report reviewed, image reviewed (consolidation in upper lobes)
== END 2016-12-20 16:00 | disposition home or self-care (01) | DRG 166 ==
LOC: ED 12:55 → 3A 22:44
PROVIDERS: ADMIT Internal Medicine; ATTEND Internal Medicine
PROC: 0B9G8ZX Drainage of Left Upper Lung Lobe, Via Natural or Artificial Opening Endoscopic, Diagnostic (ICD-10-PCS; 2016-12-13)
PROC: 30233N1 Transfusion of Nonautologous Red Blood Cells into Peripheral Vein, Percutaneous Approach (ICD-10-PCS; principal; 2016-12-16)
DX: J69.0 Pneumonitis due to inhalation of food and vomit (principal); N17.0 Acute kidney failure with tubular necrosis; E87.1 Hypo-osmolality and hyponatremia; E87.2 Acidosis; E87.6 Hypokalemia; I10 Essential (primary) hypertension; M10.9 Gout, unspecified; D64.9 Anemia, unspecified; M31.0 Hypersensitivity angiitis; M19.90 Unspecified osteoarthritis, unspecified site; D50.9 Iron deficiency anemia, unspecified; F10.231 Alcohol dependence with withdrawal delirium; D63.8 Anemia in other chronic diseases classified elsewhere; E83.42 Hypomagnesemia; Z71.41 Alcohol abuse counseling and surveillance of alcoholic; Z83.3 Family history of diabetes mellitus; Z82.49 Family history of ischemic heart disease and other diseases of the circulatory system
CPT/HCPCS: 36415; 71020; 71250; 80048; 81001; 82164; 82570; 82607; 82728; 82747; 83520; 83550; 83615; 83735; 83935; 84156; 84300; 84484; 85007; 85025; 85027; 85610; 85652; 85730; 86021; 86038; 86160; 86850; 86900; 86901; 86920; 87040; 87070; 87075; 87102; 87116; 87205; 87220; 87806; 88112; 93005; 93010; 99285; J0360; J0456; J0696; J1200; J1644; J1650; J1750; J2250; J2704; J3010; J3411; J3475; J7030; J7040; J7050; P9016

== ENCOUNTER 2017-07-25 10:19 | Outpatient (CLI) | payer MEDICAID ==
--- NOTE | 2017-07-25 10:48 | XRay Report ---
ROUTINE CHEST, TWO VIEWS: HISTORY: Cough. Compared to 01/01/17. There is mild bilateral upper lobe scarring. Otherwise, the lungs are clear. No pleural effusion or pneumothorax. Normal heart and mediastinal structures. Normal bony thorax. IMPRESSION: No acute cardiopulmonary process identified.
== END 2017-07-25 10:20 | disposition home or self-care (01) ==
LOC: XRAY 10:19
PROVIDERS: ATTEND Internal Medicine Hematology & Oncology
DX: J98.4 Other disorders of lung (principal); R05 Cough
CPT/HCPCS: 71046

== ENCOUNTER 2018-06-18 19:09 | Emergency (ER) | payer MEDICAID ==
[2018-06-18 19:27] VITALS: BP 134/66
[2018-06-18] MEDS ORDERED: FUL-GLO OP ONE ×2 (23:49→23:59)
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
[2018-06-18] MEDS ORDERED: BSS ONE (23:57)
[2018-06-18] MEDS ORDERED: TETRACAINE 0.5% ONE (23:58)
[2018-06-19] MEDS ORDERED: BSS OU ONE (00:15)
[2018-06-19] MEDS ORDERED: TETRACAINE 0.5% OU ONE (00:16)
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
== END 2018-06-19 03:17 | disposition home or self-care (01) ==
LOC: ED 19:09
DX: S00.12XA Contusion of left eyelid and periocular area, initial encounter (principal); I10 Essential (primary) hypertension; M10.9 Gout, unspecified; Z79.899 Other long term (current) drug therapy; Y04.2XXA Assault by strike against or bumped into by another person, initial encounter; Y93.89 Activity, other specified; Y99.8 Other external cause status; Y92.89 Other specified places as the place of occurrence of the external cause
CPT/HCPCS: 70450; 70486

== ENCOUNTER 2018-10-24 13:00 | Emergency (ER) | payer MEDICAID ==
[2018-10-24 13:20] VITALS: BP 176/106
--- NOTE | 2018-10-24 15:07 | Emergency Department Report ---
ED Alcohol HPI - General Chief Complaint: Alcohol Stated Complaint: ETOH/SENT BY DR Bautista Seen by Provider: 10/24/18 14:58 Source: patient, EMS Mode of arrival: Ambulatory Limitations: No Limitations - History of Present Illness Initial Comments: 58 yo M with hx of alcohol abuse presents to ED from [facility] to [facility]. Pt states he was drinking yesterday. Has no complaints. MD Complaint: alcohol intoxication Chronic Alcohol Use: Yes Previous Visits for Alcohol Intoxication?: Yes Recent Trauma: No Associated Symptoms: denies: nausea, vomiting, syncope, seizure, tremors, depression, suicidality - Related Data Home Medications Medication Instructions Recorded Confirmed Last Taken Hydrochlorothiazide [HCTZ] 50 mg PO QDAY 01/01/17 01/02/17 1 Day Ago ~01/01/17 Allopurinol [Zyloprim] 100 mg PO QDAY 01/02/17 01/02/17 1 Day Ago ~01/01/17 Cyanocobalamin [Vitamin B-12] 1,000 mcg PO DAILY 01/02/17 01/02/17 1 Day Ago ~01/01/17 amLODIPine [Norvasc] 10 mg PO DAILY 01/02/17 01/02/17 1 Day Ago ~01/01/17 Previous Rx's Medication Instructions Recorded Last Taken Type ALBUTEROL Inhaler (OR & NICU) 2 puff IH QID PRN #1 each 12/01/16 1 Day Ago Rx [ProAir HFA Inhaler] ~01/01/17 Acetaminophen [Acetaminophen TAB] 650 mg PO Q4H PRN #30 tablet 12/20/16 1 Day Ago Rx ~01/01/17 Colchicine [Colcrys] 0.6 mg PO DAILY #30 tablet 12/20/16 1 Day Ago Rx ~01/01/17 Folic Acid 1 mg PO DAILY #30 12/20/16 1 Day Ago Rx ~01/01/17 Thiamine [Vitamin B-1] 100 mg PO QDAY #30 12/20/16 1 Day Ago Rx ~01/01/17 hydroCHLOROthiazide [HCTZ] 25 mg PO QDAY #30 tablet 12/20/16 1 Day Ago Rx ~01/01/17 Tramadol HCl [Ultram] 50 mg PO TID PRN #20 tablet 06/19/18 Unknown Rx Allergies Allergy/AdvReac Type Severity Reaction Status Date / Time No Known Allergies Allergy Verified 10/24/18 13:04 ED Review of Systems ROS: Stated complaint: ETOH/SENT BY Other details as noted in HPI Comment: All other systems reviewed and negative Respiratory: denies: shortness of breath Cardiovascular: denies: chest pain ED Past Medical Hx - Past Medical History Hx Hypertension: Yes Hx Congestive Heart Failure: No Hx Diabetes: No Hx Liver Disease: Yes Hx Arthritis: Yes (gout) Hx Asthma: No Hx COPD: No Additional medical history: gout. Poor historian. History of liver disease. Previous transfusion in the past and celiotomy for "internal bleeding". - Surgical History Additional Surgical History: Exploratory laparotomy years ago after an accident - Social History Smoking Status: Unknown if ever smoked Substance Use Type: Alcohol - Medications Home Medications: Home Medications Medication Instructions Recorded Confirmed Last Taken Type ALBUTEROL Inhaler (OR & NICU) 2 puff IH QID PRN #1 each 12/01/16 01/02/17 1 Day Ago Rx [ProAir HFA Inhaler] ~01/01/17 Acetaminophen [Acetaminophen TAB] 650 mg PO Q4H PRN #30 tablet 12/20/16 01/02/17 1 Day Ago Rx ~01/01/17 Colchicine [Colcrys] 0.6 mg PO DAILY #30 tablet 12/20/16 01/02/17 1 Day Ago Rx ~01/01/17 Folic Acid 1 mg PO DAILY #30 12/20/16 01/02/17 1 Day Ago Rx ~01/01/17 Thiamine [Vitamin B-1] 100 mg PO QDAY #30 12/20/16 01/02/17 1 Day Ago Rx ~01/01/17 hydroCHLOROthiazide [HCTZ] 25 mg PO QDAY #30 tablet 12/20/16 01/02/17 1 Day Ago Rx ~01/01/17 Hydrochlorothiazide [HCTZ] 50 mg PO QDAY 01/01/17 01/02/17 1 Day Ago History ~01/01/17 Allopurinol [Zyloprim] 100 mg PO QDAY 01/02/17 01/02/17 1 Day Ago History ~01/01/17 Cyanocobalamin [Vitamin B-12] 1,000 mcg PO DAILY 01/02/17 01/02/17 1 Day Ago History ~01/01/17 amLODIPine [Norvasc] 10 mg PO DAILY 01/02/17 01/02/17 1 Day Ago History ~01/01/17 Tramadol HCl [Ultram] 50 mg PO TID PRN #20 tablet 06/19/18 Unknown Rx ED Physical Exam - General Limitations: No Limitations General appearance: alert, in no apparent distress, appears intoxicated - Head Head exam: Present: atraumatic, normocephalic - Eye Eye exam: Present: normal appearance - ENT ENT exam: Present: mucous membranes moist - Neck Neck exam: Present: normal inspection - Respiratory Respiratory exam: Present: normal lung sounds bilaterally. Absent: respiratory distress - Cardiovascular Cardiovascular Exam: Present: regular rate, normal rhythm - GI/Abdominal GI/Abdominal exam: Absent: distended - Extremities Exam Extremities exam: Present: normal inspection - Neurological Exam Neurological exam: Present: alert, oriented X3, normal gait - Psychiatric Psychiatric exam: Present: normal affect, normal mood - Skin Skin exam: Present: warm, dry, intact, normal color ED Course Vital Signs 10/24/18 13:18 Temperature 97.5 F L Pulse Rate 97 H Respiratory 19 Rate Blood Pressure 176/106 [Left] O2 Sat by Pulse 98 Oximetry ED Medical Decision Making - Medical Decision Making - pt likely intoxicated, however, is not a threat to himself or others - pt ambulating around ED, gait is steady - no medical emergencies at this time - will d/c home - Differential Diagnosis etoh abuse Critical care attestation.: If time is entered above; I have spent that time in minutes in the direct care of this critically ill patient, excluding procedure time. ED Disposition Clinical Impression: Alcohol abuse Disposition: DC-01 TO HOME OR SELFCARE Is pt being admited?: No Condition: Stable Instructions: Abuse of Alcohol (ED) Referrals: [facility] [Other] - 3-5 Days Time of Disposition: 15:08
== END 2018-10-24 15:27 | disposition home or self-care (01) ==
LOC: ED 13:00
DX: F10.10 Alcohol abuse, uncomplicated (principal); I10 Essential (primary) hypertension; Z87.39 Personal history of other diseases of the musculoskeletal system and connective tissue

== ENCOUNTER 2020-12-24 09:36 | Outpatient (CLI) | payer MEDICAID ==
--- NOTE | 2020-12-24 11:03 | XRay Report ---
LEFT HAND 3 VIEWS INDICATION: Left hand pain. COMPARISON: None. IMPRESSION: Normal bone mineralization. No acute osseous injury or joint pathology is detected. Subt le chronic deformity of the distal third metacarpal is suspected consistent with chronic traumatic in jury. Mild nonspecific soft tissue swelling is noted on the dorsum of the hand. LEFT ELBOW 3 VIEWS INDICATION: LEFT ELBOW PAIN. COMPARISON: None. IMPRESSION: No acute osseous or soft tissue abnormality. Minimal osteoarthritic changes are ident ified. Signer Name: Eyal Bedolla Jr, MD Signed: 12/24/2020 10:58 AM Workstation Name: [id number]
== END 2020-12-24 09:37 | disposition home or self-care (01) ==
LOC: XRAY 09:36
PROVIDERS: ATTEND Internal Medicine Hematology & Oncology
DX: M19.022 Primary osteoarthritis, left elbow (principal); M79.89 Other specified soft tissue disorders; M25.522 Pain in left elbow

== ENCOUNTER 2021-04-26 09:56 | Outpatient (CLI) | payer MEDICAID ==
--- NOTE | 2021-04-26 12:15 | Ultrasound Report ---
ULTRASOUND ABDOMEN, COMPLETE INDICATION / CLINICAL INFORMATION: ATTENTION TO LIVER AND SPLEEN R16.2. Abdominal pain. COMPARISON: CT abdomen/pelvis without contrast 01/03/2016. FINDINGS: PANCREAS: No significant abnormality. ABDOMINAL AORTA: No significant abnormality. IVC: No significant abnormality. LIVER: The liver is normal in measuring 14.4 cm with diffusely echogenic appearance. Normal hepatoped al blood flow within the main portal vein. GALLBLADDER: Cholelithiasis. No evidence of wall thickening or pericholecystic fluid. BILE DUCTS: No significant abnormality. Common bile duct measures 3 mm. KIDNEYS: Right: The right kidney measures 9.1 cm. No significant abnormality. Left: The left kidney measures 9.6 cm. No significant abnormality. SPLEEN: The spleen measures 8.3 cm. No significant abnormality. FREE FLUID: None. ADDITIONAL FINDINGS: None. IMPRESSION: 1. No acute abnormality. 2. Diffusely echogenic appearance of the liver, most commonly seen with steatosis. 3. Cholelithiasis without sonographic evidence of acute cholecystitis. Scribed by: Silvina Dickson RDMS, RVT Scribed: 04/26/2021 11:10 AM I have reviewed the images, agree with this report, and edited this report as needed. Signer Name: Miguel Ángel Bradshaw MD Signed: 04/26/2021 12:10 PM Workstation Name: [id number]
== END 2021-04-26 09:57 | disposition home or self-care (01) ==
LOC: US 09:56
PROVIDERS: ATTEND Internal Medicine Hematology & Oncology
DX: K80.20 Calculus of gallbladder without cholecystitis without obstruction (principal); R16.2 Hepatomegaly with splenomegaly, not elsewhere classified
CPT/HCPCS: 76700

== ENCOUNTER 2021-11-22 12:24 | Emergency (ER) | payer MEDICAID ==
--- NOTE | 2021-11-22 12:57 | Emergency Department Report ---
HPI - General Chief Complaint: Psych Time Seen by Provider: 11/22/21 12:38 - HPI HPI: Room 12 The patient is a 61-year-old male sent in on a 1013 for suicidal behavior the patient's primary physician Dr. Edwige Gonzalez states the patient has been delusiona l or hallucinating walking in front of oncoming vehicles in traffic. The primary physician states that the patient is severely delusional, intoxicated with alcohol and exhibits schizoaffective behaviors. The primary physician states "if patient is not committed he will walk in front of cars and may be killed!!!" The patient denies suicidal ideation to myself. Patient appears intoxicated ED Past Medical Hx - Past Medical History Hx Hypertension: Yes Hx Liver Disease: Yes Hx Arthritis: Yes (gout) Additional medical history: gout. Poor historian. History of liver disease. Previous transfusion in the past and celiotomy for "internal bleeding". - Surgical History Additional Surgical History: Exploratory laparotomy years ago after an accident - Family History Family history: no significant - Social History Smoking Status: Never Smoker Substance Use Type: Alcohol - Medications Home Medications: Home Medications Medication Instructions Recorded Confirmed Last Taken Type Albuterol Mdi (or & Nicu Only) 2 puff IH QID PRN #1 each 12/01/16 01/02/17 1 Day Ago Rx [ProAir HFA Inhaler] ~01/01/17 Acetaminophen [Acetaminophen TAB] 650 mg PO Q4H PRN #30 tablet 12/20/16 01/02/17 1 Day Ago Rx ~01/01/17 Colchicine [Colcrys] 0.6 mg PO DAILY #30 tablet 12/20/16 01/02/17 1 Day Ago Rx ~01/01/17 Folic Acid 1 mg PO DAILY #30 12/20/16 01/02/17 1 Day Ago Rx ~01/01/17 Thiamine [Vitamin B-1] 100 mg PO QDAY #30 12/20/16 01/02/17 1 Day Ago Rx ~01/01/17 hydroCHLOROthiazide [HCTZ] 25 mg PO QDAY #30 tablet 12/20/16 01/02/17 1 Day Ago Rx ~01/01/17 Hydrochlorothiazide [HCTZ] 50 mg PO QDAY 01/01/17 01/02/17 1 Day Ago History ~01/01/17 Cyanocobalamin [Vitamin B-12] 1,000 mcg PO DAILY 01/02/17 01/02/17 1 Day Ago History ~01/01/17 allopurinoL [Zyloprim] 100 mg PO QDAY 01/02/17 01/02/17 1 Day Ago History ~01/01/17 amLODIPine [Norvasc] 10 mg PO DAILY 01/02/17 01/02/17 1 Day Ago History ~01/01/17 Tramadol HCl [Ultram] 50 mg PO TID PRN #20 tablet 06/19/18 Unknown Rx ED Review of Systems ROS: Stated complaint: PSYCH/1013 Other details as noted in HPI Constitutional: no symptoms reported Eyes: denies: eye pain ENT: denies: throat pain Respiratory: no symptoms reported Cardiovascular: denies: chest pain Endocrine: no symptoms reported Gastrointestinal: denies: abdominal pain Genitourinary: denies: dysuria Musculoskeletal: denies: back pain Neurological: denies: headache Psychiatric: suicidal thoughts (Patient denies), other (Suicidal behavior) Physical Exam - Physical Exam Physical Exam: GENERAL: The patient is well-developed well-nourished male standing in room not appearing to be in acute distress. [] HEENT: Normocephalic. Atraumatic. Extraocular motions are intact. Patient has moist mucous membranes. NECK: Supple. Trachea midline CHEST/LUNGS: Clear to auscultation. There is no respiratory distress noted. HEART/CARDIOVASCULAR: Regular. There is no tachycardia. There is no gallop rub or murmur. ABDOMEN: Abdomen is soft, nontender. Patient has normal bowel sounds. There is no abdominal distention. SKIN: There is no rash. There is no edema. There is no diaphoresis. NEURO: The patient is awake, alert, and oriented. The patient is cooperative. The patient has no focal neurologic deficits. The patient has normal speech. GCS 15 MUSCULOSKELETAL: There is no evidence of acute injury. ED Medical Decision Making - Lab Data Result diagrams: 11/22/21 14:29 11/22/21 14:29 - Differential Diagnosis Suicidal behavior Critical care attestation.: If time is entered above; I have spent that time in minutes in the direct care of this critically ill patient, excluding procedure time. ED Disposition Clinical Impression: Suicidal behavior Disposition: 30 STILL A PATIENT Is pt being admited?: No Does the pt Need Aspirin: No Condition: Stable
[2021-11-22] MEDS ORDERED: HALOPERIDOL LACTATE 5 MG/1 ML INJ IM PRN (14:28)
[2021-11-22] MEDS ORDERED: diphenhydrAMINE 50 MG/ML VIAL IM PRN (14:28)
[2021-11-22] MEDS ORDERED: LORazepam 2 MG/ML VIAL IM PRN (14:28)
[2021-11-22 14:51] LABS: Basophils # (Auto) 0.1 K/mm3 (0.0-0.1); Basophils % (Auto) 2.7 % (0.0-1.8); Eosinophils % (Auto) 1.2 % (0.0-4.3); Hematocrit 36.2 % (35.5-45.6); Hemoglobin 12.6 gm/dl (11.8-15.2); Lymphocytes # (Auto) 1.8 K/mm3 (1.2-5.4); Lymphocytes % (Auto) 45.7 % (13.4-35.0); Mean Corpuscular HGB Conc 35 % (32-34); Mean Corpuscular Volume 92 fl (84-94); Monocytes # (Auto) 0.3 K/mm3 (0.0-0.8); Monocytes % (Auto) 8.9 % (0.0-7.3); Platelet Count 147 K/mm3 (140-440); Red Blood Count 3.93 M/mm3 (3.65-5.03); Red Cell Distribution Width 13.4 % (13.2-15.2)
[2021-11-22 15:28] LABS: Alanine Aminotransferase 21 units/L (7-56); Albumin 5.3 g/dL (3.9-5); BUN/Creatinine Ratio 15; Blood Urea Nitrogen 16 mg/dL (9-20); Calcium 9.2 mg/dL (8.4-10.2); Hemolysis Index 9
[2021-11-23 04:41] LABS: Mucus,Urine FEW /HPF; RBC,Urine < 1.0 /HPF (0.0-6.0); WBC,Urine < 1.0 /HPF (0.0-6.0)
[2021-11-23 04:44] LABS: Bilirubin,Urine NEG (Negative); Blood,Urine NEG (Negative); Color,Urine Straw (Yellow); Urobilinogen,Urine < 2.0 mg/dL (<2.0)
[2021-11-23 04:50] LABS: Amphetamine Screen,Urine PRESUMPTIVE NEGATIVE; Benzodiazepines Screen,Urine PRESUMPTIVE NEGATIVE; Cannabinoid Screen,Urine PRESUMPTIVE POSITIVE; Cocaine Screen,Urine PRESUMPTIVE NEGATIVE; Methadone Screen,Urine PRESUMPTIVE NEGATIVE; Opiate Screen,Urine PRESUMPTIVE NEGATIVE
--- NOTE | 2021-11-23 11:13 | Consultation ---
History of Present Illness - Reason for Consult Consult date: 11/23/21 Reason for consult: SI - History of Present Psychiatric Illness HPI: The patient is a 61-year-old male sent in on a 1013 for suicidal behavior the patient's primary physician Dr. Edwige Gonzalez states the patient has been delusional or hallucinating walking in front of oncoming vehicles in traffic. The primary physician states that the patient is severely delusional, intoxicated with alcohol and exhibits schizoaffective behaviors. The primary physician states "if patient is not committed he will walk in front of cars and may be killed!!!" The patient denies suicidal ideation to myself. Patient appears intoxicated. The patient was seen today. He is a 61y/o male brought in from his PCP for delusions and suicidal behavior. During my evaluation the patient is calm and cooperative. He is a/o x 2. He has poor insight. He thinks he came to the hospital because he got sick. He says "my stomach starting hurting." The patient says he lives with family. He denies ever seeing a psychiatrist or being on any psych meds. The patient denies any illicit drug use. He says he "drinks occ asionally." He denies SI/HI or hallucinations. Will treat the patient and recommend inpatient psychiatric treatment based on the documented collateral provided by the patient's primary doctor. PAST PSYCHIATRIC HISTORY Diagnoses: Denies Suicide attempts or Self-harm behavior: Denies Prior psychiatric hospitalizations: Denies Substance Abuse history: Denies, possibly alcohol Previous psychiatric medications tried: Denies Outpatient treatment: Denies PAST MEDICAL HISTORY: None reported Family Psychiatric History: None reported SOCIAL HISTORY Marital Status: Living Arrangements: with family Employment Status: Retired Access to guns/weapons: None reported Education: History of Abuse: None reported Legal History: None reported REVIEW OF SYSTEMS Constitutional: Negative for weight loss ENT: Negative for stridor Respiratory: Negative for cough or hemoptysis All other systems reviewed and are negative MENTAL STATUS EXAMINATION General Appearance and Behavior: Age appropriate, good hygiene, wearing appropriate clothes, good eye contact, cooperative polite with questioning. Cooperation: Participating Psychomotor Behavior: Normal Mood: okay Affect and affective range: congruent with mood Thought Process: impaired Thought Content: None Speech: Normal volume, Regular rate and rhythm Suicidal Ideation: Denies Homicidal Ideation: Denies Hallucinations: Denies Delusions: Yes Impulse Control: Limited Insight and Judgment: Poor insight and judgment Memory: Poor Attention: attentive Orientation: Alert, oriented Assessment and Plan (1) Delusional Disorder RECOMMENDATIONS 1013 Risperidone 0.25mg po BID Mirtazepin 7.5mg po qhs CIWA, change indication to alcohol withdrawal. Medical: per primary Sitter: defer to primary Disposition: recommend acute psychiatric inpatient treatment. Will follow. Thanks. Case staffed with Dr. Escamilla Medications and Allergies Allergies Allergy/AdvReac Type Severity Reaction Status Date / Time No Known Allergies Allergy Verified 10/24/18 13:04 Home Medications Medication Instructions Recorded Confirmed Last Taken Type Albuterol Mdi (or & Nicu Only) 2 puff IH QID PRN #1 each 12/01/16 01/02/17 1 Day Ago Rx [ProAir HFA Inhaler] ~01/01/17 Acetaminophen [Acetaminophen TAB] 650 mg PO Q4H PRN #30 tablet 12/20/16 01/02/17 1 Day Ago Rx ~01/01/17 Colchicine [Colcrys] 0.6 mg PO DAILY #30 tablet 12/20/16 01/02/17 1 Day Ago Rx ~01/01/17 Folic Acid 1 mg PO DAILY #30 12/20/16 01/02/17 1 Day Ago Rx ~01/01/17 Thiamine [Vitamin B-1] 100 mg PO QDAY #30 12/20/16 01/02/17 1 Day Ago Rx ~01/01/17 hydroCHLOROthiazide [HCTZ] 25 mg PO QDAY #30 tablet 12/20/16 01/02/17 1 Day Ago Rx ~01/01/17 Hydrochlorothiazide [HCTZ] 50 mg PO QDAY 01/01/17 01/02/17 1 Day Ago History ~01/01/17 Cyanocobalamin [Vitamin B-12] 1,000 mcg PO DAILY 01/02/17 01/02/17 1 Day Ago History ~01/01/17 allopurinoL [Zyloprim] 100 mg PO QDAY 01/02/17 01/02/17 1 Day Ago History ~01/01/17 amLODIPine [Norvasc] 10 mg PO DAILY 01/02/17 01/02/17 1 Day Ago History ~01/01/17 Tramadol HCl [Ultram] 50 mg PO TID PRN #20 tablet 06/19/18 Unknown Rx Active Meds: Active Medications Diphenhydramine HCl (Diphenhydramine 50 Mg/Ml Vial) 50 mg IM Q6H PRN PRN Reason: Agitation Haloperidol Lactate (Haloperidol Lactate 5 Mg/1 Ml Inj) 10 mg IM Q8H PRN PRN Reason: Agitation Lorazepam (Lorazepam 2 Mg/Ml Vial) 2 mg IM Q8H PRN PRN Reason: Agitation Mental Status Exam - Vital signs Last Vital Signs Temp Pulse 89 11/22/21 20:23 Resp 18 11/22/21 20:23 BP 139/82 11/22/21 20:23 Pulse Ox 100 11/22/21 20:23 Results Result Diagrams: 11/22/21 14:29 11/22/21 14:29 Abnormal lab results 11/22/21 11/22/21 11/22/21 Range/Units 14:29 14:29 14:29 WBC 3.9 L (4.5-11.0) K/mm3 MCHC 35 H (32-34) % Lymph % (Auto) 45.7 H (13.4-35.0) % [place] % (Auto) 8.9 H (0.0-7.3) % Baso % (Auto) 2.7 H (0.0-1.8) % Seg Neutrophils # 1.6 L (1.8-7.7) K/mm3 Carbon Dioxide 19 L (22-30) mmol/L AST 65 H (5-40) units/L Total Protein 9.3 H (6.3-8.2) g/dL Albumin 5.3 H (3.9-5) g/dL Salicylates < 0.3 L (2.8-20.0) mg/dL Acetaminophen (10.0-30.0) ug/mL Plasma/Serum Alcohol (0-0.07) % 11/22/21 11/22/21 Range/Units 14:29 14:29 WBC (4.5-11.0) K/mm3 MCHC (32-34) % Lymph % (Auto) (13.4-35.0) % [place] % (Auto) (0.0-7.3) % Baso % (Auto) (0.0-1.8) % Seg Neutrophils # (1.8-7.7) K/mm3 Carbon Dioxide (22-30) mmol/L AST (5-40) units/L Total Protein (6.3-8.2) g/dL Albumin (3.9-5) g/dL Salicylates (2.8-20.0) mg/dL Acetaminophen 5.0 L (10.0-30.0) ug/mL Plasma/Serum Alcohol 0.32 H (0-0.07) % All other labs normal.
[2021-11-23] MEDS ORDERED: LORazepam 2 MG/ML VIAL IM PRN (11:21)
[2021-11-23] MEDS: risperiDONE 0.25 MG TAB PO SCH ×2 (12:57→22:27)
--- NOTE | 2021-11-23 13:54 | Emergency Department Report ---
Blank Doc - Documentation Documentation: S: No events reported overnight O: Vital Signs - 8 hr 11/23/21 13:33 Temperature 98.9 F Pulse Rate 83 Respiratory 20 Rate Blood Pressure 117/63 [Left] O2 Sat by Pulse 98 Oximetry E: Delusional disorder P: 1013/awaiting inpatient psych
[2021-11-23] MEDS ORDERED: MIRTAZAPINE 15 MG TAB PO SCH (22:00)
[2021-11-24] MEDS: risperiDONE 0.25 MG TAB PO SCH (10:12)
--- NOTE | 2021-11-24 12:08 | Emergency Department Report ---
Blank Doc - Documentation Documentation: S: No events reported overnight O: Vital Signs - 8 hr 11/24/21 11/24/21 12:24 12:25 Temperature 97.9 F Pulse Rate 100 H Respiratory 18 Rate Blood Pressure 156/92 [Left] O2 Sat by Pulse 99 98 Oximetry A: Delusional disorder P: 1013/awaiting inpatient psych
[2021-11-24 12:25] VITALS: BP 156/92
--- NOTE | 2021-11-24 12:41 | Progress Note ---
Subjective - Reason for Consult Consult date: 11/24/21 Reason for consult: self harm behavior - Chief Complaint Chief complaint: The patient was seen today. His thought process is more organized today. He still has poor insight. He says he came to the hospital because he wasn't feeling well. He says "my stomach." But it is documented that the patient was brought to the ER from his PCP for being delusional and walking in front of traffic. The patient denies SI/HI or hallucinations. He says he lives with his family. He says he slept well and his appetite is good. Will continue to recommend inpatient treatment based on the documented report from the PCP. REVIEW OF SYSTEMS Constitutional: Negative for weight loss ENT: Negative for stridor Respiratory: Negative for cough or hemoptysis All other systems reviewed and are negative MENTAL STATUS EXAMINATION General Appearance and Behavior: Age appropriate, good hygiene, wearing appropriate clothes, good eye contact, cooperative polite with questioning. Cooperation: Participating Psychomotor Behavior: Normal Mood: okay Affect and affective range: congruent with mood Thought Process: impaired Thought Content: None Speech: Normal volume, Regular rate and rhythm Suicidal Ideation: Denies Homicidal Ideation: Denies Hallucinations: Denies Delusions: Yes Impulse Control: Limited Insight and Judgment: Poor insight and judgment Memory: Poor Attention: attentive Orientation: Alert, oriented Assessment and Plan (1) Delusional Disorder RECOMMENDATIONS 1013 Risperidone 0.25mg po BID Mirtazepin 7.5mg po qhs CIWA, change indication to alcohol withdrawal. Medical: per primary Sitter: defer to primary Disposition: recommend acute psychiatric inpatient treatment. Will follow. Thanks. Case staffed with Dr. Escamilla Mental Status Exam - Vital signs Last Vital Signs Temp 97.9 F 11/24/21 12:24 Pulse 100 H 11/24/21 12:24 Resp 18 11/24/21 12:24 BP 156/92 11/24/21 12:24 Pulse Ox 98 11/24/21 12:25
== END 2021-11-24 19:09 | disposition still patient (30) ==
LOC: ED 12:24 → EEVIPCON 12:24 → ED 11-24 19:09
DX: R45.851 Suicidal ideations (principal); Z20.822 Contact with and (suspected) exposure to COVID-19; M10.9 Gout, unspecified; Z98.890 Other specified postprocedural states; Z87.898 Personal history of other specified conditions
CPT/HCPCS: 36415; 80053; 80307; 81001; 85025; 96372; 99285; J2060; U0003; 80320; 99284; G0480

== ENCOUNTER 2022-01-21 12:22 | Inpatient (IN) | payer MEDICAID ==
[2022-01-21] MEDS ORDERED: MIDAZOLAM 5 MG/5 ML INJ MDV IV ONE ×2 (15:04→20:25)
[2022-01-21] MEDS ORDERED: SODIUM CHLORIDE 0.9% 1000 ML 1,000 ML IV ONE (15:16)
--- NOTE | 2022-01-21 15:31 | Emergency Department Report ---
ED General Adult HPI - General Chief complaint: Psych Stated complaint: PSYCH EVAL Time Seen by Provider: 01/21/22 14:00 Source: patient, EMS Mode of arrival: Stretcher Limitations: Altered Mental Status - History of Present Illness Initial comments: 61 yo M sent to ED for evaluation with likely alcohol withdraw. Pt is alcoholic and reports right hand shakiness. No fall reported or any seizure activities. No other modifying or associated factors reported. Severity scale (0 -10): 0 - Related Data Home Medications Medication Instructions Recorded Confirmed Last Taken Hydrochlorothiazide [HCTZ] 50 mg PO QDAY 01/01/17 01/02/17 1 Day Ago ~01/01/17 Cyanocobalamin [Vitamin B-12] 1,000 mcg PO DAILY 01/02/17 01/02/17 1 Day Ago ~01/01/17 allopurinoL [Zyloprim] 100 mg PO QDAY 01/02/17 01/02/17 1 Day Ago ~01/01/17 amLODIPine [Norvasc] 10 mg PO DAILY 01/02/17 01/02/17 1 Day Ago ~01/01/17 Previous Rx's Medication Instructions Recorded Last Taken Type Albuterol Mdi (or & Nicu Only) 2 puff IH QID PRN #1 each 12/01/16 1 Day Ago Rx [ProAir HFA Inhaler] ~01/01/17 Acetaminophen [Acetaminophen TAB] 650 mg PO Q4H PRN #30 tablet 12/20/16 1 Day Ago Rx ~01/01/17 Colchicine [Colcrys] 0.6 mg PO DAILY #30 tablet 12/20/16 1 Day Ago Rx ~01/01/17 Folic Acid 1 mg PO DAILY #30 12/20/16 1 Day Ago Rx ~01/01/17 Thiamine [Vitamin B-1] 100 mg PO QDAY #30 12/20/16 1 Day Ago Rx ~01/01/17 hydroCHLOROthiazide [HCTZ] 25 mg PO QDAY #30 tablet 12/20/16 1 Day Ago Rx ~01/01/17 Tramadol HCl [Ultram] 50 mg PO TID PRN #20 tablet 06/19/18 Unknown Rx chlordiazePOXIDE [Librium] 25 mg PO Q6H 5 Days #20 cap NS 01/21/22 Unknown Rx Allergies Allergy/AdvReac Type Severity Reaction Status Date / Time No Known Allergies Allergy Verified 01/21/22 12:39 ED Review of Systems ROS: Stated complaint: PSYCH EVAL Other details as noted in HPI Comment: All other systems reviewed and negative Neurological: other (alcohol withdraw) ED Past Medical Hx - Past Medical History Hx Hypertension: Yes Hx Congestive Heart Failure: No Hx Diabetes: No Hx Liver Disease: Yes Hx Arthritis: Yes (gout) Hx Asthma: No Hx COPD: No Additional medical history: gout. Poor historian. History of liver disease. Previous transfusion in the past and celiotomy for "internal bleeding". - Surgical History Additional Surgical History: Exploratory laparotomy years ago after an accident - Social History Smoking Status: Never Smoker Substance Use Type: Alcohol - Medications Home Medications: Home Medications Medication Instructions Recorded Confirmed Last Taken Type Albuterol Mdi (or & Nicu Only) 2 puff IH QID PRN #1 each 12/01/16 01/02/17 1 Day Ago Rx [ProAir HFA Inhaler] ~01/01/17 Acetaminophen [Acetaminophen TAB] 650 mg PO Q4H PRN #30 tablet 12/20/16 01/02/17 1 Day Ago Rx ~01/01/17 Colchicine [Colcrys] 0.6 mg PO DAILY #30 tablet 12/20/16 01/02/17 1 Day Ago Rx ~01/01/17 Folic Acid 1 mg PO DAILY #30 12/20/16 01/02/17 1 Day Ago Rx ~01/01/17 Thiamine [Vitamin B-1] 100 mg PO QDAY #30 12/20/16 01/02/17 1 Day Ago Rx ~01/01/17 hydroCHLOROthiazide [HCTZ] 25 mg PO QDAY #30 tablet 12/20/16 01/02/17 1 Day Ago Rx ~01/01/17 Hydrochlorothiazide [HCTZ] 50 mg PO QDAY 01/01/17 01/02/17 1 Day Ago History ~01/01/17 Cyanocobalamin [Vitamin B-12] 1,000 mcg PO DAILY 01/02/17 01/02/17 1 Day Ago History ~01/01/17 allopurinoL [Zyloprim] 100 mg PO QDAY 01/02/17 01/02/17 1 Day Ago History ~01/01/17 amLODIPine [Norvasc] 10 mg PO DAILY 01/02/17 01/02/17 1 Day Ago History ~01/01/17 Tramadol HCl [Ultram] 50 mg PO TID PRN #20 tablet 06/19/18 Unknown Rx chlordiazePOXIDE [Librium] 25 mg PO Q6H 5 Days #20 cap NS 01/21/22 Unknown Rx ED Physical Exam - General Limitations: Altered Mental Status General appearance: alert, in no apparent distress - Head Head exam: Present: normal inspection - Eye Eye exam: Present: normal appearance Pupils: Present: normal accommodation - ENT ENT exam: Present: normal exam, normal orophraynx, mucous membranes dry - Neck Neck exam: Present: normal inspection, full ROM. Absent: tenderness - Respiratory Respiratory exam: Present: normal lung sounds bilaterally. Absent: respiratory distress, accessory muscle use - Cardiovascular Cardiovascular Exam: Present: regular rate, normal rhythm, normal heart sounds - GI/Abdominal GI/Abdominal exam: Present: soft, normal bowel sounds. Absent: distended, tenderness - Extremities Exam Extremities exam: Present: normal inspection, normal capillary refill. Absent: full ROM, tenderness, pedal edema - Back Exam Back exam: Absent: tenderness - Neurological Exam Neurological exam: Present: alert, oriented X3 - Psychiatric Psychiatric exam: Present: normal affect, normal mood - Skin Skin exam: Present: warm, normal color ED Course Vital Signs 01/21/22 01/21/22 01/21/22 12:22 12:57 12:58 Temperature 98.2 F Pulse Rate 106 H 92 H Respiratory 16 32 H 29 H Rate Blood Pressure 153/101 Blood Pressure 153/110 [Left] O2 Sat by Pulse 99 95 Oximetry 01/21/22 01/21/22 01/21/22 13:02 19:31 20:55 Temperature Pulse Rate 102 H 103 H Respiratory Rate Blood Pressure 210/134 167/112 Blood Pressure [Left] O2 Sat by Pulse 98 Oximetry - Consultations Consultation #1: 01/21/22 21:32 Dr Grey who accept pt for further evaluation ED Medical Decision Making - Lab Data Result diagrams: 01/21/22 15:26 01/21/22 15:26 - Medical Decision Making here with alcohol withdraw -- will go ahead and order CBC, CMP and UA -- for any infectious process or electrolytes abnormality-- given Versed 2 mg IMx 1 for symptomatic relief-- also given ivf ns 1L bolus x 1-- Lab reviewed and noted with slightly elevated BUN/Cr 41/2.6 but with normal potassium -- this is likely as a result of dehydration-- patient given ivf ns 1L bolus-- also noted with slightly elevated Blood pressure-- 151/101 -- and given clonidine 0.2 mg PO x 1-- with improvement-- will go ahead and discharge home on Librium with warnings and close follow up his doctor -- Critical care attestation.: If time is entered above; I have spent that time in minutes in the direct care of this critically ill patient, excluding procedure time. ED Disposition Clinical Impression: Alcohol abuse Alcohol withdrawal Qualifiers: Complication of substance-induced condition: with unspecified complication Qualified Code(s): F10.939 - Alcohol use, unspecified with withdrawal, unspecified Hypertension Qualifiers: Hypertension type: unspecified Qualified Code(s): I10 - Essential (primary) hypertension Disposition: ADMITTED INPATIENT Is pt being admited?: Yes Does the pt Need Aspirin: No Condition: Stable Instructions: Alcohol Abuse and Dependence Information, Adult, Hypertension, Adult, [id number], Alcohol Abuse and Nutrition, Supporting Someone With Substance Use Disorder, Hypertension (ED) Additional Instructions: Please follow the above printed instruction closely to help your symptoms Abstain from excess alcohol drink to help your overall health Increase your daily fluid to help your hydration Call and schedule follow-up with your primary doctor in the next 3 to 5 days for progress Please do not hesitate to call or return to emergency room if your symptoms worsen Prescriptions: chlordiazePOXIDE [Librium] 25 mg PO Q6H 5 Days #20 cap NS Referrals: PRIMARY CAREMD [Primary Care Provider] - 3-5 Days Time of Disposition: 19:30
[2022-01-21 15:48] LABS: Basophils # (Auto) 0.1 K/mm3 (0.0-0.1); Basophils % (Auto) 0.8 % (0.0-1.8); Eosinophils # (Auto) 0.2 K/mm3 (0.0-0.4); Eosinophils % (Auto) 2.7 % (0.0-4.3); Hematocrit 36.8 % (35.5-45.6); Hemoglobin 13.3 gm/dl (11.8-15.2); Lymphocytes # (Auto) 1.5 K/mm3 (1.2-5.4); Lymphocytes % (Auto) 18.2 % (13.4-35.0); Mean Corpuscular HGB Conc 36 % (32-34); Mean Corpuscular Volume 88 fl (84-94); Monocytes # (Auto) 0.8 K/mm3 (0.0-0.8); Monocytes % (Auto) 9.9 % (0.0-7.3); Platelet Count 196 K/mm3 (140-440); Red Blood Count 4.16 M/mm3 (3.65-5.03); Red Cell Distribution Width 12.8 % (13.2-15.2)
[2022-01-21 16:19] LABS: Calcium 9.7 mg/dL (8.4-10.2)
[2022-01-21] MEDS ORDERED: cloNIDine 0.2 MG TAB PO ONE (19:21)
[2022-01-21] MEDS ORDERED: MORPHINE 2 MG/1 ML INJ IV PRN (21:54)
[2022-01-21] MEDS ORDERED: MORPHINE 4 MG/1 ML INJ IV PRN (21:54)
[2022-01-21] MEDS ORDERED: ONDANSETRON 4 MG/2 ML INJ IV PRN (21:54)
[2022-01-21] MEDS ORDERED: ACETAMINOPHEN 325 MG TAB PO PRN (21:54)
[2022-01-21] MEDS ORDERED: MAGNESIUM HYDROXIDE (MOM) ORAL LIQD UDC PO PRN (21:54)
[2022-01-21] MEDS ORDERED: LORazepam 2 MG/ML VIAL IV PRN ×2 (21:54)
[2022-01-21] MEDS ORDERED: SODIUM CHLORIDE 0.9% 1000 ML 1,000 ML IV SCH (22:00)
--- NOTE | 2022-01-21 22:05 | History and Physical Report ---
History of Present Illness Date of examination: 01/21/22 Date of admission: 01/21/2022 Chief complaint: Tremors History of present illness: 61-year-old -Fijian male with known history of alcohol abuse and hypertension brought into the emergency room today for evaluation of possible alcohol withdrawal symptoms. History obtained from the ER staff as patient is sedated. There has been no seizures, no fever or chills, no nausea vomiting no abdominal pain. Work-up in the emergency room today, lab reveals a BUN of 41 and creatinine of 2.6. UDS was positive for benzodiazepine and marijuana. Past History Past Medical History: arthritis, hypertension, other (gout. Poor historian. History of liver disease. Previous transfusion in the past and celiotomy for "internal bleeding".) Past Surgical History: Other (Exploratory laparotomy years ago after an accident) Social history: alcohol abuse Family history: no significant family history Medications and Allergies Allergies Allergy/AdvReac Type Severity Reaction Status Date / Time No Known Allergies Allergy Verified 01/21/22 12:39 Home Medications Medication Instructions Recorded Confirmed Last Taken Type Albuterol Mdi (or & Nicu Only) 2 puff IH QID PRN #1 each 12/01/16 01/02/17 1 Day Ago Rx [ProAir HFA Inhaler] ~01/01/17 Acetaminophen [Acetaminophen TAB] 650 mg PO Q4H PRN #30 tablet 12/20/16 01/02/17 1 Day Ago Rx ~01/01/17 Colchicine [Colcrys] 0.6 mg PO DAILY #30 tablet 12/20/16 01/02/17 1 Day Ago Rx ~01/01/17 Folic Acid 1 mg PO DAILY #30 12/20/16 01/02/17 1 Day Ago Rx ~01/01/17 Thiamine [Vitamin B-1] 100 mg PO QDAY #30 12/20/16 01/02/17 1 Day Ago Rx ~01/01/17 hydroCHLOROthiazide [HCTZ] 25 mg PO QDAY #30 tablet 12/20/16 01/02/17 1 Day Ago Rx ~01/01/17 Hydrochlorothiazide [HCTZ] 50 mg PO QDAY 01/01/17 01/02/17 1 Day Ago History ~01/01/17 Cyanocobalamin [Vitamin B-12] 1,000 mcg PO DAILY 01/02/17 01/02/17 1 Day Ago History ~01/01/17 allopurinoL [Zyloprim] 100 mg PO QDAY 01/02/17 01/02/17 1 Day Ago History ~01/01/17 amLODIPine [Norvasc] 10 mg PO DAILY 01/02/17 01/02/17 1 Day Ago History ~01/01/17 Tramadol HCl [Ultram] 50 mg PO TID PRN #20 tablet 06/19/18 Unknown Rx chlordiazePOXIDE [Librium] 25 mg PO Q6H 5 Days #20 cap NS 01/21/22 Unknown Rx Active Meds: Active Medications Sodium Chloride (Sodium Chloride 0.9% 10 Ml Flush Syringe) 10 ml IV BID LESLI Sodium Chloride (Sodium Chloride 0.9% 10 Ml Flush Syringe) 10 ml IV PRN PRN PRN Reason: LINE FLUSH Review of Systems ROS unobtainable: due to mental status Exam - Constitutional Vitals: Temp Pulse Resp BP Pulse Ox 98.2 F 69 13 122/95 99 01/21/22 12:22 01/21/22 21:42 01/21/22 21:42 01/21/22 21:42 01/21/22 21:42 General appearance: Present: no acute distress, mild distress, well-nourished - EENT Eyes: Present: PERRL, EOM intact. Absent: scleral icterus ENT: hearing intact, clear oral mucosa, dentition normal - Neck Neck: Present: supple, normal ROM - Respiratory Respiratory effort: normal Respiratory: bilateral: CTA - Cardiovascular Rhythm: regular Heart Sounds: Present: S1 & S2. Absent: gallop, systolic murmur, diastolic murmur, rub, click - Extremities Extremities: no ischemia, pulses intact, pulses symmetrical, No edema, normal temperature, normal color, Full ROM Peripheral Pulses: within normal limits - Abdominal General gastrointestinal: Present: soft, non-tender, non-distended, normal bowel sounds. Absent: mass - Integumentary Integumentary: Present: clear, warm, dry, normal turgor. Absent: rash - Musculoskeletal Musculoskeletal: strength equal bilaterally - Psychiatric Psychiatric: cooperative - Neurologic Neurologic: CNII-XII intact, no focal deficits, moves all extremities, other (Lethargic and appears quite sedtated.) Results - Labs CBC & Chem 7: 01/21/22 15:26 01/22/22 04:46 Labs: Abnormal lab results 01/21/22 01/21/22 01/21/22 Range/Units 15:26 15:26 15:26 MCHC 36 H (32-34) % RDW 12.8 L (13.2-15.2) % [place] % (Auto) 9.9 H (0.0-7.3) % Carbon Dioxide (22-30) mmol/L BUN (9-20) mg/dL Creatinine (0.8-1.3) mg/dL Glucose (75-100) mg/dL Total Protein (6.3-8.2) g/dL Salicylates < 0.3 L (2.8-20.0) mg/dL Acetaminophen 5.0 L (10.0-30.0) ug/mL 01/21/22 Range/Units 15:26 MCHC (32-34) % RDW (13.2-15.2) % [place] % (Auto) (0.0-7.3) % Carbon Dioxide 20 L (22-30) mmol/L BUN 41 H (9-20) mg/dL Creatinine 2.6 H (0.8-1.3) mg/dL Glucose 106 H (75-100) mg/dL Total Protein 8.7 H (6.3-8.2) g/dL Salicylates (2.8-20.0) mg/dL Acetaminophen (10.0-30.0) ug/mL Assessment and Plan Assessment: 1.Alcohol Withdrawal 2.AKILAH-possibly prerenal 3.Hypertension- uncontrolled 4.Liver disease Plan: 1.Admitted and placed CIOK protocol 2.Place on antihypertensive. Monitor blood pressure 3.Continue on routine home medications. 4.Continue on IV fluid, monitor BUN/Creatinine. Consult nephrology for evaluation. DVT Prophylaxis:Sq Heparin Code Status:Full Code
[2022-01-21] MEDS: HEPARIN 5,000 UNIT/1 ML VIAL SUB-Q SCH (22:27)
[2022-01-21] MEDS ORDERED: THIAMINE 100 MG, FOLIC ACID 1 MG, MULTIPLE VITAMIN INJ, ADULT 10 ML in SODIUM CHLORIDE ... IV ONE (23:15)
[2022-01-22] MEDS: LORazepam 2 MG TAB PO PRN ×4 (01:25→08:04)
[2022-01-22 03:25] LABS: Bacteria,Urine 1+ /HPF (Negative); Mucus,Urine FEW /HPF
[2022-01-22 03:27] LABS: Amphetamine Screen,Urine PRESUMPTIVE NEGATIVE; Benzodiazepines Screen,Urine PRESUMPTIVE POSITIVE; Cannabinoid Screen,Urine PRESUMPTIVE POSITIVE; Cocaine Screen,Urine PRESUMPTIVE NEGATIVE; Methadone Screen,Urine PRESUMPTIVE NEGATIVE; Opiate Screen,Urine PRESUMPTIVE NEGATIVE
[2022-01-22 03:38] LABS: Color,Urine Yellow (Yellow)
[2022-01-22 05:27] LABS: Calcium 8.1 mg/dL (8.4-10.2)
[2022-01-22] MEDS: HEPARIN 5,000 UNIT/1 ML VIAL SUB-Q SCH ×3 (06:13→22:56)
[2022-01-22] MEDS: amLODIPine 10 MG TAB PO SCH (09:58)
[2022-01-22] MEDS: FOLIC ACID 1 MG TAB PO SCH (09:59)
[2022-01-22] MEDS: hydroCHLOROthiazide 25 MG TAB PO SCH (09:59)
[2022-01-22] MEDS: THIAMINE 100 MG TAB PO SCH (09:59)
[2022-01-22] MEDS ORDERED: HYDROCHLOROTHIAZIDE 50 MG PO SCH (10:00)
[2022-01-22] MEDS ORDERED: FOLIC ACID 0.8 MG PO SCH (10:00)
[2022-01-22] MEDS: allopurinoL 100 MG TAB PO SCH (10:00)
--- NOTE | 2022-01-22 10:40 | Progress Note ---
Assessment and Plan Assessment and plan: 61-year-old -[place] male with known history of alcohol abuse and hypertension brought into the emergency room today for evaluation of possible alcohol withdrawal symptoms. History obtained from the ER staff as patient is sedated. There has been no seizures, no fever or chills, no nausea vomiting no abdominal pain. Work-up in the emergency room today, lab reveals a BUN of 41 and creatinine of 2.6. UDS was positive for benzodiazepine and marijuana. 01/22: Continue supportive care. We will discontinue fluids as patient still with persistent hypotension despite treatment of the withdrawal. DTs still persist. Will restart home medication also on IV hydralazine as needed. Continue IMCU care due to hypertensive emergency. Will provide more counseling patient is more sober. Plan of care discussed with nursing staff 1. Alcohol Withdrawal with delirium tremens 2. AKILAH-possibly prerenal 3.Hypertension-emergency 4.acute hepatic liver disease 5. Acute metabolic acidosis 6. Protein calorie malnutrition- moderate 7. Polysubstance Abuse Plan: 1.discontinue IV fluids continue CIWA protocol 2.Place on antihypertensive. Monitor blood pressure 3.Continue on routine home medications. 4.Continue on IV fluid, monitor BUN/Creatinine. Consult nephrology for evaluation. DVT Prophylaxis:Sq Heparin Critical care time 35 minutes Code Status:Full Code History Interval history: Patient seen and examined still with some tremors. Hospitalist Physical - Constitutional Vitals: Temp Pulse Resp BP Pulse Ox 96.3 F L 82 12 183/103 98 01/22/22 08:00 01/22/22 09:58 01/22/22 09:00 01/22/22 09:58 01/22/22 09:00 General appearance: Present: no acute distress, mild distress, well-nourished Results - Labs CBC & Chem 7: 01/21/22 15:26 01/22/22 04:46 Labs: Laboratory Last Values WBC 8.0 K/mm3 (4.5-11.0) 01/21/22 15:26 RBC 4.16 M/mm3 (3.65-5.03) 01/21/22 15:26 Hgb 13.3 gm/dl (11.8-15.2) 01/21/22 15:26 Hct 36.8 % (35.5-45.6) 01/21/22 15:26 MCV 88 fl (84-94) 01/21/22 15: MCH 32 pg (28-32) 01/21/22 15: MCHC 36 % (32-34) H 01/21/22 15: RDW 12.8 % (13.2-15.2) L 01/21/22 15: Plt Count 196 K/mm3 (140-440) 01/21/22 15: Lymph % (Auto) 18.2 % (13.4-35.0) 01/21/22 15: [place] % (Auto) 9.9 % (0.0-7.3) H 01/21/22 15: Eos % (Auto) 2.7 % (0.0-4.3) 01/21/22: Baso % (Auto) 0.8 % (0.0-1.8) 01/21/22 15: Lymph # (Auto) 1.5 K/mm3 (1.2-5.4) 01/21/22 15: [place] # (Auto) 0.8 K/mm3 (0.0-0.8) 01/21/22 15: Eos # (Auto) 0.2 K/mm3 (0.0-0.4) 01/21/22: Baso # (Auto) 0.1 K/mm3 (0.0-0.1) 01/21/22 15: Seg Neutrophils % 68.4 % (40.0-70.0) 01/21/22 15: Seg Neutrophils # 5.5 K/mm3 (1.8-7.7) 01/21/22 15:26 Sodium 143 mmol/L (137-145) 01/22/22 04:46 Potassium 4.2 mmol/L (3.6-5.0) 01/22/22 04:46 Chloride 112.5 mmol/L (98-107) H 01/22/22 04:46 Carbon Dioxide 19 mmol/L (22-30) L 01/22/22 04:46 Anion Gap 16 mmol/L 01/22/22 04:46 BUN 31 mg/dL (9-20) H 01/22/22 04:46 Creatinine 1.7 mg/dL (0.8-1.3) H 01/22/22 04:46 Estimated GFR 50 ml/min 01/22/22 04:46 BUN/Creatinine Ratio 18 % 01/22/22 04:46 Glucose 108 mg/dL (75-100) H 01/22/22 04:46 Calcium 8.1 mg/dL (8.4-10.2) L D 01/22/22 04:46 Magnesium 1.10 mg/dL (1.7-2.3) L 01/22/22 07:54 Total Bilirubin 0.30 mg/dL (0.1-1.2) 01/21/22 15:26 AST 28 units/L (5-40) 01/21/22 15:26 ALT 29 units/L (7-56) 01/21/22 15:26 Alkaline Phosphatase 74 units/L (35-129) 01/21/22 15:26 Total Protein 8.7 g/dL (6.3-8.2) H 01/21/22 15:26 Albumin 5.0 g/dL (3.9-5) 01/21/22 15:26 Albumin/Globulin Ratio 1.4 % 01/21/22 15:26 Urine Color Yellow (Yellow) 01/22/22 03:00 Urine Turbidity Hazy (Clear) 01/22/22 03:00 Specific [place] (Man) 1.015 (1.003-1.030) 01/22/22 03:00 Ur Protein (Man) <30 mg dl mg/dL (Negative) 01/22/22 03:00 Ur Ketones (Man) Negative (Negative) 01/22/22 03:00 Urine Bilirubin (Man) Negative (Negative) 01/22/22 03:00 Urine WBC (Auto) 1.0 /HPF (0.0-6.0) 01/22/22 03:00 Urine RBC (Auto) 2.0 /HPF (0.0-6.0) 01/22/22 03:00 Urine Bacteria (Auto) 1+ /HPF (Negative) 01/22/22 03:00 Urine RBC (Manual) Negative (Negative) 01/22/22 03:00 Urine Mucus Few /HPF 01/22/22 03:00 Salicylates < 0.3 mg/dL (2.8-20.0) L 01/21/22 15:26 Urine Opiates Screen Presumptive negative 01/22/22 03:00 Urine Methadone Screen Presumptive negative 01/22/22 03:00 Acetaminophen 5.0 ug/mL (10.0-30.0) L 01/21/22 15:26 Ur Barbiturates Screen Presumptive negative 01/22/22 03:00 Ur Phencyclidine Scrn Presumptive negative 01/22/22 03:00 Ur Amphetamines Screen Presumptive negative 01/22/22 03:00 U Benzodiazepines Scrn Presumptive positive 01/22/22 03:00 Urine Cocaine Screen Presumptive negative 01/22/22 03:00 U Marijuana (THC) Screen Presumptive positive 01/22/22 03:00 Drugs of Abuse Note Disclamer 01/22/22 03:00 Plasma/Serum Alcohol < 0.01 % (0-0.07) 01/21/22 15:26 Cee/IV: Voiding Method Condom Catheter Active Medications - Current Medications Current Medications: Generic Name Dose Route Start Last Admin Trade Name Freq PRN Reason Stop Dose Admin Acetaminophen 650 mg 01/21/22 21:54 Acetaminophen 325 Mg Tab PO Q6H PRN Pain MILD(1-3)/Fever >100.5/CORLEY Allopurinol 100 mg 01/22/22 10:00 01/22/22 10:00 Allopurinol 100 Mg Tab PO 100 mg QDAY LESLI Administration Amlodipine Besylate 10 mg 01/22/22 10:00 01/22/22 09:58 Amlodipine 10 Mg Tab PO 10 mg DAILY LESLI Administration Colchicine 0.6 mg 01/22/22 10:00 Colchicine 0.6 Mg Tab PO DAILY LESLI Folic Acid 1 mg 01/22/22 10:00 01/22/22 09:59 Folic Acid 1 Mg Tab PO 1 mg DAILY LESLI Administration Heparin Sodium (Porcine) 5,000 unit 01/21/22 22:00 01/22/22 06:13 Heparin 5,000 Unit/1 Ml Vial SUB-Q 5,000 unit Q8HR LESLI Administration Hydralazine HCl 10 mg 01/22/22 09:32 Hydralazine 20 Mg/1 Ml Inj IV Q4HR PRN Hypertension Hydrochlorothiazide 50 mg 01/22/22 10:00 01/22/22 09:59 Hydrochlorothiazide 25 Mg Tab PO 50 mg QDAY LESLI Administration Lorazepam 2 mg 01/21/22 21:54 01/22/22 08:04 Lorazepam 2 Mg Tab PO 2 mg Q1H PRN Administration CIWA-Ar 8-15 Lorazepam 4 mg 01/21/22 21:54 Lorazepam 2 Mg/Ml Vial IV Q1H PRN CIWA-Ar 16-25 Lorazepam 4 mg 01/21/22 21:54 Lorazepam 2 Mg/Ml Vial IV Q15MIN PRN CIWA-Ar >25 Magnesium Hydroxide 30 ml 01/21/22 21:54 Magnesium Hydroxide (Mom) Oral Liqd Udc PO Q4H PRN Constipation Morphine Sulfate 2 mg 01/21/22 21:54 Morphine 2 Mg/1 Ml Inj IV Q4H PRN Pain, Moderate (4-6) Morphine Sulfate 4 mg 01/21/22 21:54 Morphine 4 Mg/1 Ml Inj IV Q4H PRN Pain , Severe (7-10) Ondansetron HCl 4 mg 01/21/22 21:54 Ondansetron 4 Mg/2 Ml Inj IV Q8H PRN Nausea And Vomiting Sodium Chloride 10 ml 01/21/22 22:00 01/22/22 09:58 Sodium Chloride 0.9% 10 Ml Flush Syringe IV 10 ml BID LESLI Administration Sodium Chloride 10 ml 01/21/22 21:54 Sodium Chloride 0.9% 10 Ml Flush Syringe IV PRN PRN LINE FLUSH Thiamine HCl 100 mg 01/22/22 10:00 01/22/22 09:59 Thiamine 100 Mg Tab PO 100 mg QDAY LESLI Administration Nutrition/Malnutrition Assess - Dietary Evaluation Nutrition/Malnutrition Findings: Nutrition Notes Start: 01/22/22 10:20 Freq: Status: Active Protocol: Document 01/22/22 10:20 REED (Rec: 01/22/22 10:37 REED [id number]) Nutrition Notes Need for Assessment generated from: ticket printer and tagger,MST Initial or Follow up Assessment Current Diagnosis Acute Kidney Injury, Hypertension Other Pertinent Diagnosis EtOH Abuse/Wirhdrawal, Liver Disease. Current Diet Regular -Renal- Diet (since B 01/22). Labs/Tests 01/22: Cl 112.5, CO2 19, BUN 31, Crea 1.7, Glu 108, Ca 8.1, Mg 1.1. Pertinent Medications 01/22: Folic acid, Thiamine, others nutritionally unremarkable. 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 Weight Status Appropriate Subjective/Other Information RD consult for risk of malnutrition assessment. No reports available on Pt;s PO intake of meals at the time . I will prescribe Renal modification to Pt's current diet to support Pt's AKILAH condition. Pt is on Room Air, O2 saturation @ 99%, according to Physical Assessment History notes. Pt has missing teeth, according to Physical Assessment History notes. Pt shows no signs of concern for risk of malnutrition at the time, according to Physical Assessment History notes. Percent of energy/protein needs met: Prescribed Regular Diet provides for energy/protein needs (2,289 Kcal/89 g) during LOS. Burn Absent Trauma Absent GI Symptoms None Food Allergy No Skin Integrity/Comment Assessment WNL. 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 As Evidenced by Signs and Symptoms 01/22: Cl 112.5, CO2 19, BUN 31, Crea 1.7, Glu 108, Ca 8.1, Mg 1.1. Is patient on ventilator? No Is Patient Ambulatory and/or Out of Bed No REE-([facility]-confined to bed) 1662.708 Kcal/Kg value to use for calculation 34 Approximate Energy Requirements Using 1975 kcal/Kg Calculation Used for Recommendations Kcal/kg Additional Notes Protein: 0.8-1 g/Kg ABW; 46-58 g/day. Fluids: 1 ml/Kcal, or as per MD. Nutrition Intervention Change Diet Order: Modify to Regular -Renal- Diet , continue as tolerated. Goal #1 Help reach and maintain acceptable chemistry lab values during LOS. Follow-Up By: 01/28/22 Additional Comments Continue monitoring food tolerance, %PO intake of meals , and BM.
[2022-01-22] MEDS: COLCHICINE 0.6 MG TAB PO SCH (11:03)
[2022-01-22] MEDS: hydrALAZINE 20 MG/1 ML INJ IV PRN (20:05)
[2022-01-23] MEDS: LORazepam 2 MG TAB PO PRN ×4 (00:15→20:42)
[2022-01-23] MEDS: hydrALAZINE 20 MG/1 ML INJ IV PRN ×3 (00:15→14:35)
[2022-01-23] MEDS: HEPARIN 5,000 UNIT/1 ML VIAL SUB-Q SCH ×3 (06:09→20:42)
[2022-01-23] MEDS ORDERED: METOPROLOL TARTRATE 5 MG/5 ML INJ IV ONE (08:00)
[2022-01-23 09:22] LABS: Basophils # (Auto) 0.1 K/mm3 (0.0-0.1); Basophils % (Auto) 1.9 % (0.0-1.8); Eosinophils # (Auto) 0.2 K/mm3 (0.0-0.4); Eosinophils % (Auto) 5.2 % (0.0-4.3); Hematocrit 37.1 % (35.5-45.6); Lymphocytes # (Auto) 1.3 K/mm3 (1.2-5.4); Lymphocytes % (Auto) 29.1 % (13.4-35.0); Mean Corpuscular HGB Conc 35 % (32-34); Mean Corpuscular Volume 89 fl (84-94); Monocytes # (Auto) 0.5 K/mm3 (0.0-0.8); Monocytes % (Auto) 11.7 % (0.0-7.3); Platelet Count 215 K/mm3 (140-440); Red Blood Count 4.18 M/mm3 (3.65-5.03)
[2022-01-23 09:35] LABS: Albumin 4.7 g/dL (3.9-5); Calcium 9.8 mg/dL (8.4-10.2)
--- NOTE | 2022-01-23 10:27 | Progress Note ---
Assessment and Plan Assessment and plan: 61-year-old -U[place] male with known history of alcohol abuse and hypertension brought into the emergency room today for evaluation of possible alcohol withdrawal symptoms. History obtained from the ER staff as patient is sedated. There has been no seizures, no fever or chills, no nausea vomiting no abdominal pain. Work-up in the emergency room today, lab reveals a BUN of 41 and creatinine of 2.6. UDS was positive for benzodiazepine and marijuana. 01/22: Continue supportive care. We will discontinue fluids as patient still with persistent hypotension despite treatment of the withdrawal. DTs still persist. Will restart home medication also on IV hydralazine as needed. Continue IMCU care due to hypertensive emergency. Will provide more counseling patient is more sober. Plan of care discussed with nursing staff 01/23: Patient still with acute withdrawal. Understandably this initial shortage of Ativan. We will start on scheduled Ativan and also metoprolol IV. She does have sinus tachycardia tolerating very little diet per history has not been a big eater. We will start on D5 to prevent hypoglycemia. Continue IMCU care at this time still critically ill. Renal function is showing some improvement 1. Alcohol Withdrawal with delirium tremens 2. AKILAH-possibly prerenal 3. Hypertension-emergency 4. Acute hepatic liver disease 5. Acute metabolic acidosis 6. Protein calorie malnutrition- moderate 7. Polysubstance Abuse Plan: 1.discontinue IV fluids continue CIWA protocol 2.Place on antihypertensive. Monitor blood pressure 3.Continue on routine home medications. 4.Continue on IV fluid, monitor BUN/Creatinine. Consult nephrology for evaluation. DVT Prophylaxis:Sq Heparin Critical care time 35 minutes Code Status:Full Code History Interval history: Patient seen and examined still with some tremors. Still confused, lots of tachycardic and hypertensive. Hospitalist Physical - Physical exam Narrative exam: VITAL SIGNS: Reviewed. GENERAL: The patient appears normally developed, disheveled, tremulous. Vital signs as documented. HEAD: No signs of head trauma. EYES: Pupils are equal. Extraocular motions intact. EARS: Hearing grossly intact. MOUTH: Oropharynx is normal. NECK: No adenopathy, no JVD. CHEST: Chest with clear breath sounds bilaterally. No wheezes, rales, or rhonchi. CARDIAC: Tachycardic. S1 and S2, without murmurs, gallops, or rubs. VASCULAR: No Edema. Peripheral pulses normal and equal in all extremities. ABDOMEN: Soft, non tender and non distended. No rebound or guarding, and no masses palpated. Bowel Sounds normal. MUSCULOSKELETAL: Good range of motion of all major joints. Extremities without clubbing, cyanosis or edema. NEUROLOGIC EXAM: Tremulous. Lethargic 3 No focal sensory or strength deficits. Speech slurred. Follows some commands. PSYCHIATRIC: Mood flat. SKIN: detail exam as documented in skin assessment - Constitutional Vitals: Temp Pulse Resp BP Pulse Ox 98.4 F 114 H 38 H 151/100 98 01/23/22 07:22 01/23/22 09:00 01/23/22 09:00 01/23/22 09:00 01/23/22 09:00 General appearance: Present: no acute distress, mild distress, well-nourished Results - Labs CBC & Chem 7: 01/23/22 08:03 01/23/22 08:03 Labs: Laboratory Last Values WBC 4.6 K/mm3 (4.5-11.0) 01/23/22 08:03 RBC 4.18 M/mm3 (3.65-5.03) 01/23/22 08:03 Hgb 13.0 gm/dl (11.8-15.2) 01/23/22 08:03 Hct 37.1 % (35.5-45.6) 01/23/22 08:03 MCV 89 fl (84-94) 01/23/22 08:03 MCH 31 pg (28-32) 01/23/22 08:03 MCHC 35 % (32-34) H 01/23/22 08:03 RDW 13.0 % (13.2-15.2) L 01/23/22 08:03 Plt Count 215 K/mm3 (140-440) 01/23/22 08:03 Lymph % (Auto) 29.1 % (13.4-35.0) 01/23/22 08:03 [place] % (Auto) 11.7 % (0.0-7.3) H 01/23/22 08:03 Eos % (Auto) 5.2 % (0.0-4.3) H 01/23/22 08:03 Baso % (Auto) 1.9 % (0.0-1.8) H 01/23/22 08:03 Lymph # (Auto) 1.3 K/mm3 (1.2-5.4) 01/23/22 08:03 [place] # (Auto) 0.5 K/mm3 (0.0-0.8) 01/23/22 08:03 Eos # (Auto) 0.2 K/mm3 (0.0-0.4) 01/23/22 08:03 Baso # (Auto) 0.1 K/mm3 (0.0-0.1) 01/23/22 08:03 Seg Neutrophils % 52.1 % (40.0-70.0) 01/23/22 08:03 Seg Neutrophils # 2.4 K/mm3 (1.8-7.7) 01/23/22 08:03 Sodium 135 mmol/L (137-145) L D 01/23/22 08:03 Potassium 3.9 mmol/L (3.6-5.0) 01/23/22 08:03 Chloride 99.6 mmol/L (98-107) 01/23/22 08:03 Carbon Dioxide 21 mmol/L (22-30) L 01/23/22 08:03 Anion Gap 18 mmol/L 01/23/22 08:03 BUN 21 mg/dL (9-20) H 01/23/22 08:03 Creatinine 1.6 mg/dL (0.8-1.3) H 01/23/22 08:03 Estimated GFR 54 ml/min 01/23/22 08:03 BUN/Creatinine Ratio 13 % 01/23/22 08:03 Glucose 121 mg/dL (75-100) H 01/23/22 08:03 Calcium 9.8 mg/dL (8.4-10.2) D 01/23/22 08:03 Magnesium 1.10 mg/dL (1.7-2.3) L 01/22/22 07:54 Total Bilirubin 0.50 mg/dL (0.1-1.2) 01/23/22 08:03 AST 30 units/L (5-40) 01/23/22 08:03 ALT 29 units/L (7-56) 01/23/22 08:03 Alkaline Phosphatase 69 units/L (35-129) 01/23/22 08:03 Total Protein 8.0 g/dL (6.3-8.2) 01/23/22 08:03 Albumin 4.7 g/dL (3.9-5) 01/23/22 08:03 Albumin/Globulin Ratio 1.4 % 01/23/22 08:03 Urine Color Yellow (Yellow) 01/22/22 03:00 Urine Turbidity Hazy (Clear) 01/22/22 03:00 Specific [place] (Man) 1.015 (1.003-1.030) 01/22/22 03:00 Ur Protein (Man) <30 mg dl mg/dL (Negative) 01/22/22 03:00 Ur Ketones (Man) Negative (Negative) 01/22/22 03:00 Urine Bilirubin (Man) Negative (Negative) 01/22/22 03:00 Urine WBC (Auto) 1.0 /HPF (0.0-6.0) 01/22/22 03:00 Urine RBC (Auto) 2.0 /HPF (0.0-6.0) 01/22/22 03:00 Urine Bacteria (Auto) 1+ /HPF (Negative) 01/22/22 03:00 Urine RBC (Manual) Negative (Negative) 01/22/22 03:00 Urine Mucus Few /HPF 01/22/22 03:00 Salicylates < 0.3 mg/dL (2.8-20.0) L 01/21/22 15:26 Urine Opiates Screen Presumptive negative 01/22/22 03:00 Urine Methadone Screen Presumptive negative 01/22/22 03:00 Acetaminophen 5.0 ug/mL (10.0-30.0) L 01/21/22 15:26 Ur Barbiturates Screen Presumptive negative 01/22/22 03:00 Ur Phencyclidine Scrn Presumptive negative 01/22/22 03:00 Ur Amphetamines Screen Presumptive negative 01/22/22 03:00 U Benzodiazepines Scrn Presumptive positive 01/22/22 03:00 Urine Cocaine Screen Presumptive negative 01/22/22 03:00 U Marijuana (THC) Screen Presumptive positive 01/22/22 03:00 Drugs of Abuse Note Disclamer 01/22/22 03:00 Plasma/Serum Alcohol < 0.01 % (0-0.07) 01/21/22 15:26 SARS-CoV-2 (PCR) Negative (Negative) 01/22/22 11:30 Cee/IV: Voiding Method Condom Catheter Active Medications - Current Medications Current Medications: Generic Name Dose Route Start Last Admin Trade Name Freq PRN Reason Stop Dose Admin Acetaminophen 650 mg 01/21/22 21:54 Acetaminophen 325 Mg Tab PO Q6H PRN Pain MILD(1-3)/Fever >100.5/CORLEY Allopurinol 100 mg 01/22/22 10:00 01/22/22 10:00 Allopurinol 100 Mg Tab PO 100 mg QDAY LESLI Administration Amlodipine Besylate 10 mg 01/22/22 10:00 01/22/22 09:58 Amlodipine 10 Mg Tab PO 10 mg DAILY LESLI Administration Chlordiazepoxide HCl 25 mg 01/23/22 14:00 Chlordiazepoxide 25 Mg Cap PO TID LESLI Colchicine 0.6 mg 01/22/22 10:00 01/22/22 11:03 Colchicine 0.6 Mg Tab PO 0.6 mg DAILY LESLI Administration Folic Acid 1 mg 01/22/22 10:00 01/22/22 09:59 Folic Acid 1 Mg Tab PO 1 mg DAILY LESLI Administration Heparin Sodium (Porcine) 5,000 unit 01/21/22 22:00 01/23/22 06:09 Heparin 5,000 Unit/1 Ml Vial SUB-Q 5,000 unit Q8HR LESLI Administration Hydralazine HCl 10 mg 01/22/22 09:32 01/23/22 06:09 Hydralazine 20 Mg/1 Ml Inj IV 10 mg Q4HR PRN Administration Hypertension Hydrochlorothiazide 50 mg 01/22/22 10:00 01/22/22 09:59 Hydrochlorothiazide 25 Mg Tab PO 50 mg QDAY LESLI Administration Dextrose/Sodium Chloride 1,000 mls @ 42 mls/hr 01/23/22 11:00 D5ns IV DIRECT LESLI Lorazepam 2 mg 01/21/22 21:54 01/23/22 00:15 Lorazepam 2 Mg Tab PO 2 mg Q1H PRN Administration CIWA-Ar 8-15 Lorazepam 4 mg 01/21/22 21:54 Lorazepam 2 Mg/Ml Vial IV Q1H PRN CIWA-Ar 16-25 Lorazepam 4 mg 01/21/22 21:54 Lorazepam 2 Mg/Ml Vial IV Q15MIN PRN CIWA-Ar >25 Magnesium Hydroxide 30 ml 01/21/22 21:54 Magnesium Hydroxide (Mom) Oral Liqd Udc PO Q4H PRN Constipation Metoprolol Tartrate 2.5 mg 01/23/22 12:00 Metoprolol Tartrate 5 Mg/5 Ml Inj IV Q6HR [facility] Morphine Sulfate 2 mg 01/21/22 21:54 Morphine 2 Mg/1 Ml Inj IV Q4H PRN Pain, Moderate (4-6) Morphine Sulfate 4 mg 01/21/22 21:54 Morphine 4 Mg/1 Ml Inj IV Q4H PRN Pain , Severe (7-10) Ondansetron HCl 4 mg 01/21/22 21:54 Ondansetron 4 Mg/2 Ml Inj IV Q8H PRN Nausea And Vomiting Sodium Chloride 10 ml 01/21/22 22:00 01/22/22 22:56 Sodium Chloride 0.9% 10 Ml Flush Syringe IV 10 ml BID LESLI Administration Sodium Chloride 10 ml 01/21/22 21:54 Sodium Chloride 0.9% 10 Ml Flush Syringe IV PRN PRN LINE FLUSH Thiamine HCl 100 mg 01/22/22 10:00 01/22/22 09:59 Thiamine 100 Mg Tab PO 100 mg QDAY LESLI Administration Nutrition/Malnutrition Assess - Dietary Evaluation Nutrition/Malnutrition Findings: Nutrition Notes Start: 01/22/22 10:20 Freq: Status: Active Protocol: Document 01/22/22 10:20 REED (Rec: 01/22/22 10:37 REED [id number]) Nutrition Notes Need for Assessment generated from: MD Order,psychologist counseling,MST, Education Initial or Follow up Assessment Current Diagnosis Acute Kidney Injury, Hypertension Other Pertinent Diagnosis EtOH Abuse/Wirhdrawal, Liver Disease. Current Diet Regular -Renal- Diet (since B 01/22). Labs/Tests 01/22: Cl 112.5, CO2 19, BUN 31, Crea 1.7, Glu 108, Ca 8.1, Mg 1.1. Pertinent Medications 01/22: Folic acid, Thiamine, others nutritionally unremarkable. 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 No reports available on Pt;s PO intake of meals at the time . I will prescribe Renal modification to Pt's current diet to support Pt's AKILAH condition. Pt is on Room Air, O2 saturation @ 99%, according to Physical Assessment History notes. Pt has missing teeth, according to Physical Assessment History notes. Pt shows no signs of concern for risk of malnutrition at the time, according to Physical Assessment History notes. Pt still in critical condition , not a candidate for Nutrition Education at the time, will assess feasibility on F/U. Percent of energy/protein needs met: Prescribed Regular Diet provides for energy/protein needs (2,289 Kcal/89 g) during LOS. Burn Absent Trauma Absent GI Symptoms None Food Allergy No Skin Integrity/Comment Assessment WNL. 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 As Evidenced by Signs and Symptoms 01/22: Cl 112.5, CO2 19, BUN 31, Crea 1.7, Glu 108, Ca 8.1, Mg 1.1. Is patient on ventilator? No Is Patient Ambulatory and/or Out of Bed No REE-([facility]-confined to bed) 1662.708 Kcal/Kg value to use for calculation 34 Approximate Energy Requirements Using 1975 kcal/Kg Calculation Used for Recommendations Kcal/kg Additional Notes Protein: 0.8-1 g/Kg ABW; 46-58 g/day. Fluids: 1 ml/Kcal, or as per MD. Nutrition Intervention Change Diet Order: Modify to Regular -Renal- Diet , continue as tolerated. Goal #1 Help reach and maintain acceptable chemistry lab values during LOS. Follow-Up By: 01/28/22 Additional Comments Nutrition education will be provided at F/U, if feasible. Continue monitoring food tolerance, %PO intake of meals , and BM.
[2022-01-23] MEDS: allopurinoL 100 MG TAB PO SCH (10:55)
[2022-01-23] MEDS: FOLIC ACID 1 MG TAB PO SCH (10:55)
[2022-01-23] MEDS: D5W/0.9% NACL 1,000 ML IV SCH (10:55)
[2022-01-23] MEDS: hydroCHLOROthiazide 25 MG TAB PO SCH (10:55)
[2022-01-23] MEDS: amLODIPine 10 MG TAB PO SCH (10:55)
[2022-01-23] MEDS: THIAMINE 100 MG TAB PO SCH (10:56)
[2022-01-23] MEDS: METOPROLOL TARTRATE 5 MG/5 ML INJ IV SCH ×2 (11:01→19:11)
[2022-01-23] MEDS: COLCHICINE 0.6 MG TAB PO SCH (11:01)
[2022-01-23] MEDS: chlordiazePOXIDE 25 MG CAP PO SCH ×2 (14:36→20:42)
[2022-01-24] MEDS: METOPROLOL TARTRATE 5 MG/5 ML INJ IV SCH ×4 (01:55→19:05)
[2022-01-24] MEDS: HEPARIN 5,000 UNIT/1 ML VIAL SUB-Q SCH ×4 (01:55→21:00)
[2022-01-24] MEDS: chlordiazePOXIDE 25 MG CAP PO SCH (10:15)
[2022-01-24] MEDS: THIAMINE 100 MG TAB PO SCH (10:16)
[2022-01-24] MEDS: amLODIPine 10 MG TAB PO SCH (10:16)
[2022-01-24] MEDS: hydroCHLOROthiazide 25 MG TAB PO SCH (10:16)
[2022-01-24] MEDS: FOLIC ACID 1 MG TAB PO SCH (10:16)
[2022-01-24] MEDS: allopurinoL 100 MG TAB PO SCH (10:16)
[2022-01-24] MEDS: COLCHICINE 0.6 MG TAB PO SCH (10:21)
--- NOTE | 2022-01-24 11:43 | Progress Note ---
Assessment and Plan Assessment and plan: 61-year-old -[place]ank[place] male with known history of alcohol abuse and hypertension brought into the emergency room today for evaluation of possible alcohol withdrawal symptoms. History obtained from the ER staff as patient is sedated. There has been no seizures, no fever or chills, no nausea vomiting no abdominal pain. Work-up in the emergency room today, lab reveals a BUN of 41 and creatinine of 2.6. UDS was positive for benzodiazepine and marijuana. 01/22: Continue supportive care. We will discontinue fluids as patient still with persistent hypotension despite treatment of the withdrawal. DTs still persist. Will restart home medication also on IV hydralazine as needed. Continue IMCU care due to hypertensive emergency. Will provide more counseling patient is more sober. Plan of care discussed with nursing staff 01/23: Patient still with acute withdrawal. Understandably this initial shortage of Ativan. We will start on scheduled Ativan and also metoprolol IV. She does have sinus tachycardia tolerating very little diet per history has not been a big eater. We will start on D5 to prevent hypoglycemia. Continue IMCU care at this time still critically ill. Renal function is showing some improvement. 01/24: Patient still with withdrawals but improving some, will transfer to Floor. Continue inpatient care until confusion, improved. 1. Alcohol Withdrawal with delirium tremens 2. AKILAH-possibly prerenal 3. Hypertension-emergency 4. Acute hepatic liver disease 5. Acute metabolic acidosis 6. Acute metabolic Encelalopathy 7. Protein calorie malnutrition- moderate 8. Polysubstance Abuse Plan: 1.discontinue IV fluids continue CIWA protocol 2.Place on antihypertensive. Monitor blood pressure 3.Continue on routine home medications. 4.Continue on IV fluid, monitor BUN/Creatinine. Consult nephrology for eval uation. DVT Prophylaxis:Sq Heparin Critical care time 35 minutes Code Status:Full Code History Interval history: Patient seen and examined still with some tremors. Still confused, lots of tachycardic and hypertensive. Hospitalist Physical - Physical exam Narrative exam: VITAL SIGNS: Reviewed. GENERAL: The patient appears normally developed, disheveled, tremulous. Vital signs as documented. HEAD: No signs of head trauma. EYES: Pupils are equal. Extraocular motions intact. EARS: Hearing grossly intact. MOUTH: Oropharynx is normal. NECK: No adenopathy, no JVD. CHEST: Chest with clear breath sounds bilaterally. No wheezes, rales, or rhonchi. CARDIAC: Tachycardic. S1 and S2, without murmurs, gallops, or rubs. VASCULAR: No Edema. Peripheral pulses normal and equal in all extremities. ABDOMEN: Soft, non tender and non distended. No rebound or guarding, and no masses palpated. Bowel Sounds normal. MUSCULOSKELETAL: Good range of motion of all major joints. Extremities without clubbing, cyanosis or edema. NEUROLOGIC EXAM: Tremulous. Lethargic, confused No focal sensory or strength deficits. Speech slurred. Follows some commands. PSYCHIATRIC: Mood flat. SKIN: detail exam as documented in skin assessment - Constitutional Vitals: Temp Pulse Resp BP Pulse Ox 99.8 F H 131 H 28 H 118/86 97 01/24/22 07:19 01/24/22 10:16 01/24/22 10:00 01/24/22 10:16 01/24/22 10:00 General appearance: Present: no acute distress, mild distress, well-nourished Results - Labs CBC & Chem 7: 01/23/22 08:03 01/23/22 08:03 Labs: Laboratory Last Values WBC 4.6 K/mm3 (4.5-11.0) 01/23/22 08:03 RBC 4.18 M/mm3 (3.65-5.03) 01/23/22 08:03 Hgb 13.0 gm/dl (11.8-15.2) 01/23/22 08:03 Hct 37.1 % (35.5-45.6) 01/23/22 08:03 MCV 89 fl (84-94) 01/23/22 08:03 MCH 31 pg (28-32) 01/23/22 08:03 MCHC 35 % (32-34) H 01/23/22 08:03 RDW 13.0 % (13.2-15.2) L 01/23/22 08:03 Plt Count 215 K/mm3 (140-440) 01/23/22 08:03 Lymph % (Auto) 29.1 % (13.4-35.0) 01/23/22 08:03 [place] % (Auto) 11.7 % (0.0-7.3) H 01/23/22 08:03 Eos % (Auto) 5.2 % (0.0-4.3) H 01/23/22 08:03 Baso % (Auto) 1.9 % (0.0-1.8) H 01/23/22 08:03 Lymph # (Auto) 1.3 K/mm3 (1.2-5.4) 01/23/22 08:03 [place] # (Auto) 0.5 K/mm3 (0.0-0.8) 01/23/22 08:03 Eos # (Auto) 0.2 K/mm3 (0.0-0.4) 01/23/22 08:03 Baso # (Auto) 0.1 K/mm3 (0.0-0.1) 01/23/22 08:03 Seg Neutrophils % 52.1 % (40.0-70.0) 01/23/22 08:03 Seg Neutrophils # 2.4 K/mm3 (1.8-7.7) 01/23/22 08:03 Sodium 135 mmol/L (137-145) L D 01/23/22 08:03 Potassium 3.9 mmol/L (3.6-5.0) 01/23/22 08:03 Chloride 99.6 mmol/L (98-107) 01/23/22 08:03 Carbon Dioxide 21 mmol/L (22-30) L 01/23/22 08:03 Anion Gap 18 mmol/L 01/23/22 08:03 BUN 21 mg/dL (9-20) H 01/23/22 08:03 Creatinine 1.6 mg/dL (0.8-1.3) H 01/23/22 08:03 Estimated GFR 54 ml/min 01/23/22 08:03 BUN/Creatinine Ratio 13 % 01/23/22 08:03 Glucose 121 mg/dL (75-100) H 01/23/22 08:03 Calcium 9.8 mg/dL (8.4-10.2) D 01/23/22 08:03 Magnesium 1.10 mg/dL (1.7-2.3) L 01/22/22 07:54 Total Bilirubin 0.50 mg/dL (0.1-1.2) 01/23/22 08:03 AST 30 units/L (5-40) 01/23/22 08:03 ALT 29 units/L (7-56) 01/23/22 08:03 Alkaline Phosphatase 69 units/L (35-129) 01/23/22 08:03 Total Protein 8.0 g/dL (6.3-8.2) 01/23/22 08:03 Albumin 4.7 g/dL (3.9-5) 01/23/22 08:03 Albumin/Globulin Ratio 1.4 % 01/23/22 08:03 Urine Color Yellow (Yellow) 01/22/22 03:00 Urine Turbidity Hazy (Clear) 01/22/22 03:00 Specific [place] (Man) 1.015 (1.003-1.030) 01/22/22 03:00 Ur Protein (Man) <30 mg dl mg/dL (Negative) 01/22/22 03:00 Ur Ketones (Man) Negative (Negative) 01/22/22 03:00 Urine Bilirubin (Man) Negative (Negative) 01/22/22 03:00 Urine WBC (Auto) 1.0 /HPF (0.0-6.0) 01/22/22 03:00 Urine RBC (Auto) 2.0 /HPF (0.0-6.0) 01/22/22 03:00 Urine Bacteria (Auto) 1+ /HPF (Negative) 01/22/22 03:00 Urine RBC (Manual) Negative (Negative) 01/22/22 03:00 Urine Mucus Few /HPF 01/22/22 03:00 Salicylates < 0.3 mg/dL (2.8-20.0) L 01/21/22 15:26 Urine Opiates Screen Presumptive negative 01/22/22 03:00 Urine Methadone Screen Presumptive negative 01/22/22 03:00 Acetaminophen 5.0 ug/mL (10.0-30.0) L 01/21/22 15:26 Ur Barbiturates Screen Presumptive negative 01/22/22 03:00 Ur Phencyclidine Scrn Presumptive negative 01/22/22 03:00 Ur Amphetamines Screen Presumptive negative 01/22/22 03:00 U Benzodiazepines Scrn Presumptive positive 01/22/22 03:00 Urine Cocaine Screen Presumptive negative 01/22/22 03:00 U Marijuana (THC) Screen Presumptive positive 01/22/22 03:00 Drugs of Abuse Note Disclamer 01/22/22 03:00 Plasma/Serum Alcohol < 0.01 % (0-0.07) 01/21/22 15:26 SARS-CoV-2 (PCR) Negative (Negative) 01/22/22 11:30 Cee/IV: Voiding Method Condom Catheter Active Medications - Current Medications Current Medications: Generic Name Dose Route Start Last Admin Trade Name Freq PRN Reason Stop Dose Admin Acetaminophen 650 mg 01/21/22 21:54 Acetaminophen 325 Mg Tab PO Q6H PRN Pain MILD(1-3)/Fever >100.5/CORLEY Allopurinol 100 mg 01/22/22 10:00 01/24/22 10:16 Allopurinol 100 Mg Tab PO 100 mg QDAY LESLI Administration Amlodipine Besylate 10 mg 01/22/22 10:00 01/24/22 10:16 Amlodipine 10 Mg Tab PO 10 mg DAILY LESLI Administration Chlordiazepoxide HCl 25 mg 01/23/22 14:00 01/24/22 10:15 Chlordiazepoxide 25 Mg Cap PO 25 mg TID LESLI Administration Colchicine 0.6 mg 01/22/22 10:00 01/24/22 10:21 Colchicine 0.6 Mg Tab PO 0.6 mg DAILY LESLI Administration Folic Acid 1 mg 01/22/22 10:00 01/24/22 10:16 Folic Acid 1 Mg Tab PO 1 mg DAILY LESLI Administration Heparin Sodium (Porcine) 5,000 unit 01/21/22 22:00 01/24/22 06:15 Heparin 5,000 Unit/1 Ml Vial SUB-Q 5,000 unit Q8HR LESLI Administration Hydralazine HCl 10 mg 01/22/22 09:32 01/23/22 14:35 Hydralazine 20 Mg/1 Ml Inj IV 10 mg Q4HR PRN Administration Hypertension Hydrochlorothiazide 50 mg 01/22/22 10:00 01/24/22 10:16 Hydrochlorothiazide 25 Mg Tab PO 50 mg QDAY LESLI Administration Dextrose/Sodium Chloride 1,000 mls @ 42 mls/hr 01/23/22 11:00 01/23/22 10:55 D5ns IV 42 mls/hr DIRECT LESLI Administration Lorazepam 2 mg 01/21/22 21:54 01/23/22 20:42 Lorazepam 2 Mg Tab PO 2 mg Q1H PRN Administration CIWA-Ar 8-15 Lorazepam 4 mg 01/21/22 21:54 Lorazepam 2 Mg/Ml Vial IV Q1H PRN CIWA-Ar 16-25 Lorazepam 4 mg 01/21/22 21:54 Lorazepam 2 Mg/Ml Vial IV Q15MIN PRN CIWA-Ar >25 Magnesium Hydroxide 30 ml 01/21/22 21:54 Magnesium Hydroxide (Mom) Oral Liqd Udc PO Q4H PRN Constipation Metoprolol Tartrate 2.5 mg 01/23/22 11:00 01/24/22 06:15 Metoprolol Tartrate 5 Mg/5 Ml Inj IV Not Given Q6H LESLI Morphine Sulfate 2 mg 01/21/22 21:54 Morphine 2 Mg/1 Ml Inj IV Q4H PRN Pain, Moderate (4-6) Morphine Sulfate 4 mg 01/21/22 21:54 Morphine 4 Mg/1 Ml Inj IV Q4H PRN Pain , Severe (7-10) Ondansetron HCl 4 mg 01/21/22 21:54 Ondansetron 4 Mg/2 Ml Inj IV Q8H PRN Nausea And Vomiting Sodium Chloride 10 ml 01/21/22 22:00 01/24/22 10:16 Sodium Chloride 0.9% 10 Ml Flush Syringe IV 10 ml BID LESLI Administration Sodium Chloride 10 ml 01/21/22 21:54 Sodium Chloride 0.9% 10 Ml Flush Syringe IV PRN PRN LINE FLUSH Thiamine HCl 100 mg 01/22/22 10:00 01/24/22 10:16 Thiamine 100 Mg Tab PO 100 mg QDAY LESLI Administration Nutrition/Malnutrition Assess - Dietary Evaluation Nutrition/Malnutrition Findings: Nutrition Notes Start: 01/22/22 10:20 Freq: Status: Active Protocol: Document 01/22/22 10:20 REED (Rec: 01/22/22 10:37 REED [id number]) Nutrition Notes Need for Assessment generated from: MD Order,automation application engineer,MST, Education Initial or Follow up Assessment Current Diagnosis Acute Kidney Injury, Hypertension Other Pertinent Diagnosis EtOH Abuse/Wirhdrawal, Liver Disease. Current Diet Regular -Renal- Diet (since B 01/22). Labs/Tests 01/22: Cl 112.5, CO2 19, BUN 31, Crea 1.7, Glu 108, Ca 8.1, Mg 1.1. Pertinent Medications 01/22: Folic acid, Thiamine, others nutritionally unremarkable. 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 No reports available on Pt;s PO intake of meals at the time . I will prescribe Renal modification to Pt's current diet to support Pt's AKILAH condition. Pt is on Room Air, O2 saturation @ 99%, according to Physical Assessment History notes. Pt has missing teeth, according to Physical Assessment History notes. Pt shows no signs of concern for risk of malnutrition at the time, according to Physical Assessment History notes. Pt still in critical condition , not a candidate for Nutrition Education at the time, will assess feasibility on F/U. Percent of energy/protein needs met: Prescribed Regular Diet provides for energy/protein needs (2,289 Kcal/89 g) during LOS. Burn Absent Trauma Absent GI Symptoms None Food Allergy No Skin Integrity/Comment Assessment WNL. 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 As Evidenced by Signs and Symptoms 01/22: Cl 112.5, CO2 19, BUN 31, Crea 1.7, Glu 108, Ca 8.1, Mg 1.1. Is patient on ventilator? No Is Patient Ambulatory and/or Out of Bed No REE-([facility]-confined to bed) 1662.708 Kcal/Kg value to use for calculation 34 Approximate Energy Requirements Using 1975 kcal/Kg Calculation Used for Recommendations Kcal/kg Additional Notes Protein: 0.8-1 g/Kg ABW; 46-58 g/day. Fluids: 1 ml/Kcal, or as per MD. Nutrition Intervention Change Diet Order: Modify to Regular -Renal- Diet , continue as tolerated. Goal #1 Help reach and maintain acceptable chemistry lab values during LOS. Follow-Up By: 01/28/22 Additional Comments Nutrition education will be provided at F/U, if feasible. Continue monitoring food tolerance, %PO intake of meals , and BM.
[2022-01-24] MEDS ORDERED: chlordiazePOXIDE 25 MG CAP PO PRN (11:57)
[2022-01-24] MEDS ORDERED: MIDAZOLAM 2 MG/2 ML INJ IV PRN (11:58)
[2022-01-24] MEDS: chlordiazePOXIDE 25 MG CAP PO PRN ×2 (14:47→19:04)
[2022-01-24] MEDS: D5W/0.9% NACL 1,000 ML IV SCH (14:48)
[2022-01-24 16:55] LABS: Hemoglobin 11.6 gm/dl (11.8-15.2); Mean Corpuscular HGB Conc 34 % (32-34); Mean Corpuscular Volume 90 fl (84-94); Platelet Count 162 K/mm3 (140-440); Red Blood Count 3.76 M/mm3 (3.65-5.03); Red Cell Distribution Width 12.9 % (13.2-15.2)
[2022-01-24] MEDS ORDERED: THIAMINE 100 MG, FOLIC ACID 1 MG, MULTIPLE VITAMIN INJ, ADULT 10 ML in SODIUM CHLORIDE ... IV ONE (18:37)
[2022-01-24 19:10] LABS: Albumin 4.1 g/dL (3.9-5); Calcium 9.4 mg/dL (8.4-10.2)
[2022-01-25] MEDS: METOPROLOL TARTRATE 5 MG/5 ML INJ IV SCH ×5 (00:10→22:05)
[2022-01-25] MEDS: HEPARIN 5,000 UNIT/1 ML VIAL SUB-Q SCH ×3 (05:56→21:21)
[2022-01-25] MEDS: hydrALAZINE 20 MG/1 ML INJ IV PRN ×2 (08:24→23:42)
[2022-01-25] MEDS: chlordiazePOXIDE 25 MG CAP PO PRN ×3 (08:24→16:59)
[2022-01-25] MEDS: hydroCHLOROthiazide 25 MG TAB PO SCH (09:13)
[2022-01-25] MEDS: COLCHICINE 0.6 MG TAB PO SCH (09:13)
[2022-01-25] MEDS: allopurinoL 100 MG TAB PO SCH (09:14)
[2022-01-25] MEDS: THIAMINE 100 MG TAB PO SCH (09:14)
[2022-01-25] MEDS: FOLIC ACID 1 MG TAB PO SCH (09:14)
[2022-01-25] MEDS: amLODIPine 10 MG TAB PO SCH (09:14)
--- NOTE | 2022-01-25 15:08 | Progress Note ---
Assessment and Plan Assessment and plan: 61-year-old -Algerian male with known history of alcohol abuse and hypertension brought into the emergency room today for evaluation of possible alcohol withdrawal symptoms. History obtained from the ER staff as patient is sedated. There has been no seizures, no fever or chills, no nausea vomiting no abdominal pain. Work-up in the emergency room today, lab reveals a BUN of 41 and creatinine of 2.6. UDS was positive for benzodiazepine and marijuana. 01/22: Continue supportive care. We will discontinue fluids as patient still with persistent hypotension despite treatment of the withdrawal. DTs still persist. Will restart home medication also on IV hydralazine as needed. Continue IMCU care due to hypertensive emergency. Will provide more counseling patient is more sober. Plan of care discussed with nursing staff 01/23: Patient still with acute withdrawal. Understandably this initial shortage of Ativan. We will start on scheduled Ativan and also metoprolol IV. She does have sinus tachycardia tolerating very little diet per history has not been a big eater. We will start on D5 to prevent hypoglycemia. Continue IMCU care at this time still critically ill. Renal function is showing some improvement. 01/24: Patient still with withdrawals but improving some, will transfer to Floor. Continue inpatient care until confusion, improved. 01/25: Confusion improved. Pt oneal at bedside and she states that patient is at baseline. Patient does remain slightly tremulous. Anticipate d/c tomorrow AM back home. Patient can go to floor. 1. Alcohol Withdrawal with delirium tremens 2. AKILAH-possibly prerenal 3. Hypertension-emergency 4. Acute hepatic liver disease 5. Acute metabolic acidosis 6. Acute metabolic Encelalopathy 7. Protein calorie malnutrition- moderate 8. Polysubstance Abuse Plan: 1.discontinue IV fluids continue CIWA protocol 2.Place on antihypertensive. Monitor blood pressure 3.Continue on routine home medications. 4.Continue on IV fluid, monitor BUN/Creatinine. Consult nephrology for evalua tion. DVT Prophylaxis:Sq Heparin The high probability of a clinically significant, sudden or life threatening deterioration of the [multi] system(s) required my full and direct attention, intervention and personal management. The aggregate critical care time was [60] minutes. This time is in addition to time spent performing reported procedures but includes the following: [x] Data Review and interpretation [x] Patient assessment and monitoring of vital signs [x] Documentation [x] Medication orders and management History Interval history: No acute overnight events. Patient resting comfortably. Alert and oriented x4. Still slightly tremulous. Daughter at bedside who states that patient is responding to questioning appropriately. Patient still has not eaten anything stating he has a poor appetitie but denied any nausea/vomiting/ abd pain. Hospitalist Physical - Physical exam Narrative exam: Physical Exam: VITAL SIGNS: Reviewed. GENERAL: The patient appears normally developed, Vital signs as documented. HEAD: No signs of head trauma. EYES: Pupils are equal. Extraocular motions intact. EARS: Hearing grossly intact. MOUTH: Oropharynx is normal. NECK: No adenopathy, no JVD. CHEST: Chest with clear breath sounds bilaterally. No wheezes, rales, or rhonchi. CARDIAC: Regular rate and rhythm. S1 and S2, without murmurs, gallops, or rubs. VASCULAR: No Edema. Peripheral pulses normal and equal in all extremities. ABDOMEN: Soft, non tender and non distended. No rebound or guarding, and no masses palpated. Bowel Sounds normal. MUSCULOSKELETAL: Good range of motion of all major joints. Extremities without clubbing, cyanosis or edema. NEUROLOGIC EXAM: Alert and oriented x 4. no focal sensory or strength deficits. PSYCHIATRIC: Mood normal. SKIN: detail exam as documented in skin assessment - Constitutional Vitals: Temp Pulse Resp BP Pulse Ox 97.6 F 102 H 21 164/97 97 01/25/22 11:41 01/25/22 14:00 01/25/22 14:00 01/25/22 14:00 01/25/22 14:00 General appearance: Present: no acute distress, mild distress, well-nourished Results - Labs CBC & Chem 7: 01/24/22 16:39 01/24/22 16:39 Labs: Laboratory Last Values WBC 18.8 K/mm3 (4.5-11.0) H 01/24/22 16:39 RBC 3.76 M/mm3 (3.65-5.03) 01/24/22 16:39 Hgb 11.6 gm/dl (11.8-15.2) L 01/24/22 16:39 Hct 34.0 % (35.5-45.6) L 01/24/22 16:39 MCV 90 fl (84-94) 01/24/22 16:39 MCH 31 pg (28-32) 01/24/22 16:39 MCHC 34 % (32-34) 01/24/22 16:39 RDW 12.9 % (13.2-15.2) L 01/24/22 16:39 Plt Count 162 K/mm3 (140-440) 01/24/22 16:39 Lymph % (Auto) 29.1 % (13.4-35.0) 01/23/22 08:03 [place] % (Auto) 11.7 % (0.0-7.3) H 01/23/22 08:03 Eos % (Auto) 5.2 % (0.0-4.3) H 01/23/22 08:03 Baso % (Auto) 1.9 % (0.0-1.8) H 01/23/22 08:03 Lymph # (Auto) 1.3 K/mm3 (1.2-5.4) 01/23/22 08:03 [place] # (Auto) 0.5 K/mm3 (0.0-0.8) 01/23/22 08:03 Eos # (Auto) 0.2 K/mm3 (0.0-0.4) 01/23/22 08:03 Baso # (Auto) 0.1 K/mm3 (0.0-0.1) 01/23/22 08:03 Seg Neutrophils % 52.1 % (40.0-70.0) 01/23/22 08:03 Seg Neutrophils # 2.4 K/mm3 (1.8-7.7) 01/23/22 08:03 Sodium 137 mmol/L (137-145) 01/24/22 16:39 Potassium 3.9 mmol/L (3.6-5.0) 01/24/22 16:39 Chloride 102.9 mmol/L (98-107) 01/24/22 16:39 Carbon Dioxide 16 mmol/L (22-30) L 01/24/22 16:39 Anion Gap 22 mmol/L 01/24/22 16:39 BUN 22 mg/dL (9-20) H 01/24/22 16:39 Creatinine 1.8 mg/dL (0.8-1.3) H 01/24/22 16:39 Estimated GFR 47 ml/min 01/24/22 16:39 BUN/Creatinine Ratio 12 % 01/24/22 16:39 Glucose 115 mg/dL (75-100) H 01/24/22 16:39 Calcium 9.4 mg/dL (8.4-10.2) 01/24/22 16:39 Magnesium 1.10 mg/dL (1.7-2.3) L 01/22/22 07:54 Total Bilirubin 0.70 mg/dL (0.1-1.2) 01/24/22 16:39 AST 173 units/L (5-40) H 01/24/22 16:39 ALT 93 units/L (7-56) H 01/24/22 16:39 Alkaline Phosphatase 73 units/L (35-129) 01/24/22 16:39 Total Protein 7.5 g/dL (6.3-8.2) 01/24/22 16:39 Albumin 4.1 g/dL (3.9-5) 01/24/22 16:39 Albumin/Globulin Ratio 1.2 % 01/24/22 16:39 Urine Color Yellow (Yellow) 01/22/22 03:00 Urine Turbidity Hazy (Clear) 01/22/22 03:00 Specific [place] (Man) 1.015 (1.003-1.030) 01/22/22 03:00 Ur Protein (Man) <30 mg dl mg/dL (Negative) 01/22/22 03:00 Ur Ketones (Man) Negative (Negative) 01/22/22 03:00 Urine Bilirubin (Man) Negative (Negative) 01/22/22 03:00 Urine WBC (Auto) 1.0 /HPF (0.0-6.0) 01/22/22 03:00 Urine RBC (Auto) 2.0 /HPF (0.0-6.0) 01/22/22 03:00 Urine Bacteria (Auto) 1+ /HPF (Negative) 01/22/22 03:00 Urine RBC (Manual) Negative (Negative) 01/22/22 03:00 Urine Mucus Few /HPF 01/22/22 03:00 Salicylates < 0.3 mg/dL (2.8-20.0) L 01/21/22 15:26 Urine Opiates Screen Presumptive negative 01/22/22 03:00 Urine Methadone Screen Presumptive negative 01/22/22 03:00 Acetaminophen 5.0 ug/mL (10.0-30.0) L 01/21/22 15:26 Ur Barbiturates Screen Presumptive negative 01/22/22 03:00 Ur Phencyclidine Scrn Presumptive negative 01/22/22 03:00 Ur Amphetamines Screen Presumptive negative 01/22/22 03:00 U Benzodiazepines Scrn Presumptive positive 01/22/22 03:00 Urine Cocaine Screen Presumptive negative 01/22/22 03:00 U Marijuana (THC) Screen Presumptive positive 01/22/22 03:00 Drugs of Abuse Note Disclamer 01/22/22 03:00 Plasma/Serum Alcohol < 0.01 % (0-0.07) 01/21/22 15:26 SARS-CoV-2 (PCR) Negative (Negative) 01/22/22 11:30 Cee/IV: Voiding Method Condom Catheter Active Medications - Current Medications Current Medications: Generic Name Dose Route Start Last Admin Trade Name Freq PRN Reason Stop Dose Admin Acetaminophen 650 mg 01/21/22 21:54 Acetaminophen 325 Mg Tab PO Q6H PRN Pain MILD(1-3)/Fever >100.5/CORLEY Allopurinol 100 mg 01/22/22 10:00 01/25/22 09:14 Allopurinol 100 Mg Tab PO 100 mg QDAY LESLI Administration Amlodipine Besylate 10 mg 01/22/22 10:00 01/25/22 09:14 Amlodipine 10 Mg Tab PO 10 mg DAILY LESLI Administration Chlordiazepoxide HCl 50 mg 01/24/22 11:57 01/25/22 12:41 Chlordiazepoxide 25 Mg Cap PO 50 mg Q1H PRN Administration CIWA-Ar 8-15 Chlordiazepoxide HCl 100 mg 01/24/22 11:57 Chlordiazepoxide 25 Mg Cap PO Q1H PRN CIWA-Ar 16-25 Colchicine 0.6 mg 01/22/22 10:00 01/25/22 09:13 [place]chicine 0.6 Mg Tab PO 0.6 mg DAILY LESLI Administration Folic Acid 1 mg 01/22/22 10:00 01/25/22 09:14 Folic Acid 1 Mg Tab PO 1 mg DAILY LESLI Administration Heparin Sodium (Porcine) 5,000 unit 01/21/22 22:00 01/25/22 13:47 Heparin 5,000 Unit/1 Ml Vial SUB-Q 5,000 unit Q8HR LESLI Administration Hydralazine HCl 10 mg 01/22/22 09:32 01/25/22 08:24 Hydralazine 20 Mg/1 Ml Inj IV 10 mg Q4HR PRN Administration Hypertension Hydrochlorothiazide 50 mg 01/22/22 10:00 01/25/22 09:13 Hydrochlorothiazide 25 Mg Tab PO 50 mg QDAY LESLI Administration Dextrose/Sodium Chloride 1,000 mls @ 42 mls/hr 01/23/22 11:00 01/24/22 14:48 D5ns IV 42 mls/hr DIRECT LESLI Administration Magnesium Hydroxide 30 ml 01/21/22 21:54 Magnesium Hydroxide (Mom) Oral Liqd Udc PO Q4H PRN Constipation Metoprolol Tartrate 2.5 mg 01/23/22 11:00 01/25/22 12:41 Metoprolol Tartrate 5 Mg/5 Ml Inj IV 2.5 mg Q6H LESLI Administration Midazolam HCl 1 mg 01/24/22 11:58 01/24/22 12:09 Midazolam 2 Mg/2 Ml Inj IV 1 mg Q4H PRN Administration CIWA SCORE >16 Morphine Sulfate 2 mg 01/21/22 21:54 Morphine 2 Mg/1 Ml Inj IV Q4H PRN Pain, Moderate (4-6) Morphine Sulfate 4 mg 01/21/22 21:54 Morphine 4 Mg/1 Ml Inj IV Q4H PRN Pain , Severe (7-10) Ondansetron HCl 4 mg 01/21/22 21:54 Ondansetron 4 Mg/2 Ml Inj IV Q8H PRN Nausea And Vomiting Sodium Chloride 10 ml 01/21/22 22:00 01/25/22 09:15 Sodium Chloride 0.9% 10 Ml Flush Syringe IV 10 ml BID LESLI Administration Sodium Chloride 10 ml 01/21/22 21:54 Sodium Chloride 0.9% 10 Ml Flush Syringe IV PRN PRN LINE FLUSH Thiamine HCl 100 mg 01/22/22 10:00 01/25/22 09:14 Thiamine 100 Mg Tab PO 100 mg QDAY LESLI Administration Nutrition/Malnutrition Assess - Dietary Evaluation Nutrition/Malnutrition Findings: Nutrition Notes Start: 01/22/22 10:20 Freq: Status: Active Protocol: Document 01/22/22 10:20 REED (Rec: 01/22/22 10:37 REED [email or web address]) Nutrition Notes Need for Assessment generated from: Order,general education professor,MST, Education Initial or Follow up Assessment Current Diagnosis Acute Kidney Injury, Hypertension Other Pertinent Diagnosis EtOH Abuse/Wirhdrawal, Liver Disease. Current Diet Regular -Renal- Diet (since B 01/22). Labs/Tests 01/22: Cl 112.5, CO2 19, BUN 31, Crea 1.7, Glu 108, Ca 8.1, Mg 1.1. Pertinent Medications 01/22: Folic acid, Thiamine, others nutritionally unremarkable. 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 No reports available on Pt;s PO intake of meals at the time . I will prescribe Renal modification to Pt's current diet to support Pt's AKILAH condition. Pt is on Room Air, O2 saturation @ 99%, according to Physical Assessment History notes. Pt has missing teeth, according to Physical Assessment History notes. Pt shows no signs of concern for risk of malnutrition at the time, according to Physical Assessment History notes. Pt still in critical condition , not a candidate for Nutrition Education at the time, will assess feasibility on F/U. Percent of energy/protein needs met: Prescribed Regular Diet provides for energy/protein needs (2,289 Kcal/89 g) during LOS. Burn Absent Trauma Absent GI Symptoms None Food Allergy No Skin Integrity/Comment Assessment WNL. 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 As Evidenced by Signs and Symptoms 01/22: Cl 112.5, CO2 19, BUN 31, Crea 1.7, Glu 108, Ca 8.1, Mg 1.1. Is patient on ventilator? No Is Patient Ambulatory and/or Out of Bed No REE-([facility]-confined to bed) 1662.708 Kcal/Kg value to use for calculation 34 Approximate Energy Requirements Using 1975 kcal/Kg Calculation Used for Recommendations Kcal/kg Additional Notes Protein: 0.8-1 g/Kg ABW; 46-58 g/day. Fluids: 1 ml/Kcal, or as per MD. Nutrition Intervention Change Diet Order: Modify to Regular -Renal- Diet , continue as tolerated. Goal #1 Help reach and maintain acceptable chemistry lab values during LOS. Follow-Up By: 01/28/22 Additional Comments Nutrition education will be provided at F/U, if feasible. Continue monitoring food tolerance, %PO intake of meals , and BM.
[2022-01-25] MEDS: D5W/0.9% NACL 1,000 ML IV SCH (16:22)
[2022-01-26] MEDS: HEPARIN 5,000 UNIT/1 ML VIAL SUB-Q SCH ×3 (05:38→22:32)
[2022-01-26] MEDS: METOPROLOL TARTRATE 5 MG/5 ML INJ IV SCH (05:38)
--- NOTE | 2022-01-26 09:28 | Discharge Summary ---
Providers - Providers Date of Admission: 01/21/22 21:55 Attending physician: SILAS NUÑEZ MD 01/21/22 21:55 Consult to Dietitian/Nutrition [CONS] Routine Physician Instructions: Reason For Exam: Reason for Consult: Diet education Primary care physician: ABIGAIL KRUGER MD Hospitalization Condition: Stable Disposition: 30 STILL A PATIENT Exam - Constitutional Vitals: Temp Pulse Resp BP Pulse Ox 99.1 F 108 H 23 135/77 94 01/25/22 20:17 01/26/22 09:00 01/26/22 09:00 01/26/22 09:00 01/26/22 09:00 Plan Follow up with: PRIMARY MD SLICK [Primary Care Provider] - 3-5 Days Prescriptions: chlordiazePOXIDE [Librium] 25 mg PO Q6H 5 Days #20 cap NS
[2022-01-26] MEDS: hydroCHLOROthiazide 25 MG TAB PO SCH (10:09)
[2022-01-26] MEDS: THIAMINE 100 MG TAB PO SCH (10:10)
[2022-01-26] MEDS: COLCHICINE 0.6 MG TAB PO SCH (10:10)
[2022-01-26] MEDS: FOLIC ACID 1 MG TAB PO SCH (10:10)
[2022-01-26] MEDS: allopurinoL 100 MG TAB PO SCH (10:10)
[2022-01-26] MEDS: amLODIPine 10 MG TAB PO SCH (10:10)
[2022-01-26] MEDS: METOPROLOL TARTRATE 25 MG TAB PO SCH ×2 (10:10→22:33)
[2022-01-26] MEDS: chlordiazePOXIDE 25 MG CAP PO PRN ×2 (10:16→14:35)
--- NOTE | 2022-01-26 14:36 | Progress Note ---
Assessment and Plan Assessment and plan: 61-year-old -[place] male with known history of alcohol abuse and hypertension brought into the emergency room today for evaluation of possible alcohol withdrawal symptoms. History obtained from the ER staff as patient is sedated. There has been no seizures, no fever or chills, no nausea vomiting no abdominal pain. Work-up in the emergency room today, lab reveals a BUN of 41 and creatinine of 2.6. UDS was positive for benzodiazepine and marijuana. 01/22: Continue supportive care. We will discontinue fluids as patient still with persistent hypotension despite treatment of the withdrawal. DTs still persist. Will restart home medication also on IV hydralazine as needed. Continue IMCU care due to hypertensive emergency. Will provide more counseling patient is more sober. Plan of care discussed with nursing staff 01/23: Patient still with acute withdrawal. Understandably this initial shortage of Ativan. We will start on scheduled Ativan and also metoprolol IV. She does have sinus tachycardia tolerating very little diet per history has not been a big eater. We will start on D5 to prevent hypoglycemia. Continue IMCU care at this time still critically ill. Renal function is showing some improvement. 01/24: Patient still with withdrawals but improving some, will transfer to Floor. Continue inpatient care until confusion, improved. 01/25: Confusion improved. Pt oneal at bedside and she states that patient is at baseline. Patient does remain slightly tremulous. Anticipate d/c tomorrow AM back home. Patient can go to floor. 01/26: Still appears to be withdrawing. Continue treatment wiht librium (ativan remains on shortage). supportive management otherwise. encourage to eat po as long as he is not nauseous. metoprolol changed from IV to po. 1. Alcohol Withdrawal with delirium tremens 2. AKILAH-possibly prerenal 3. Hypertension-emergency 4. Acute hepatic liver disease 5. Acute metabolic acidosis 6. Acute metabolic Encelalopathy 7. Protein calorie malnutrition- moderate 8. Polysubstance Abuse Plan: 1.discontinue IV fluids continue CIWA protocol 2.Place on antihypertensive. Monitor blood pressure 3.Continue on routine home medications. 4.Continue on IV fluid, monitor BUN/Creatinine. Consult nephrology for evaluation. DVT Prophylaxis:Sq Heparin The high probability of a clinically significant, sudden or life threatening deterioration of the [multi] system(s) required my full and direct attention, intervention and personal management. The aggregate critical care time was [60] minutes. This time is in addition to time spent performing reported procedures but includes the following: [x] Data Review and interpretation [x] Patient assessment and monitoring of vital signs [x] Documentation [x] Medication orders and management History Interval history: Patient remains tremulous. HR on bedside tele 133. sinus tachycardia. Hospitalist Physical - Physical exam Narrative exam: Physical Exam: VITAL SIGNS: Reviewed. GENERAL: The patient appears normally developed, Vital signs as documented. tremulous HEAD: No signs of head trauma. EYES: Pupils are equal. Extraocular motions intact. EARS: Hearing grossly intact. MOUTH: Oropharynx is normal. NECK: No adenopathy, no JVD. CHEST: Chest with clear breath sounds bilaterally. No wheezes, rales, or rhonc hi. CARDIAC: sinus tachycardia rate 133. S1 and S2, without murmurs, gallops, or rubs. VASCULAR: No Edema. Peripheral pulses normal and equal in all extremities. ABDOMEN: Soft, non tender and non distended. No rebound or guarding, and no masses palpated. Bowel Sounds normal. MUSCULOSKELETAL: Good range of motion of all major joints. Extremities without clubbing, cyanosis or edema. NEUROLOGIC EXAM: Alert and oriented x 4. no focal sensory or strength deficits. PSYCHIATRIC: Mood normal. SKIN: detail exam as documented in skin assessment - Constitutional Vitals: Temp Pulse Resp BP Pulse Ox 99.1 F 118 H 36 H 125/78 97 01/25/22 20:17 01/26/22 14:00 01/26/22 14:00 01/26/22 14:00 01/26/22 14:00 General appearance: Present: no acute distress, mild distress, well-nourished Results - Labs CBC & Chem 7: 01/24/22 16:39 01/24/22 16:39 Labs: Laboratory Last Values WBC 18.8 K/mm3 (4.5-11.0) H 01/24/22 16:39 RBC 3.76 M/mm3 (3.65-5.03) 01/24/22 16:39 Hgb 11.6 gm/dl (11.8-15.2) L 01/24/22 16:39 Hct 34.0 % (35.5-45.6) L 01/24/22 16:39 MCV 90 fl (84-94) 01/24/22 16:39 MCH 31 pg (28-32) 01/24/22 16:39 MCHC 34 % (32-34) 01/24/22 16:39 RDW 12.9 % (13.2-15.2) L 01/24/22 16:39 Plt Count 162 K/mm3 (140-440) 01/24/22 16:39 Lymph % (Auto) 29.1 % (13.4-35.0) 01/23/22 08:03 [place] % (Auto) 11.7 % (0.0-7.3) H 01/23/22 08:03 Eos % (Auto) 5.2 % (0.0-4.3) H 01/23/22 08:03 Baso % (Auto) 1.9 % (0.0-1.8) H 01/23/22 08:03 Lymph # (Auto) 1.3 K/mm3 (1.2-5.4) 01/23/22 08:03 [place]lier # (Auto) 0.5 K/mm3 (0.0-0.8) 01/23/22 08:03 Eos # (Auto) 0.2 K/mm3 (0.0-0.4) 01/23/22 08:03 Baso # (Auto) 0.1 K/mm3 (0.0-0.1) 01/23/22 08:03 Seg Neutrophils % 52.1 % (40.0-70.0) 01/23/22 08:03 Seg Neutrophils # 2.4 K/mm3 (1.8-7.7) 01/23/22 08:03 Sodium 137 mmol/L (137-145) 01/24/22 16:39 Potassium 3.9 mmol/L (3.6-5.0) 01/24/22 16:39 Chloride 102.9 mmol/L (98-107) 01/24/22 16:39 Carbon Dioxide 16 mmol/L (22-30) L 01/24/22 16:39 Anion Gap 22 mmol/L 01/24/22 16:39 BUN 22 mg/dL (9-20) H 01/24/22 16:39 Creatinine 1.8 mg/dL (0.8-1.3) H 01/24/22 16:39 Estimated GFR 47 ml/min 01/24/22 16:39 BUN/Creatinine Ratio 12 % 01/24/22 16:39 Glucose 115 mg/dL (75-100) H 01/24/22 16:39 POC Glucose 120 mg/dL (70-105) H 01/25/22 16:20 Calcium 9.4 mg/dL (8.4-10.2) 01/24/22 16:39 Magnesium 1.10 mg/dL (1.7-2.3) L 01/22/22 07:54 Total Bilirubin 0.70 mg/dL (0.1-1.2) 01/24/22 16:39 AST 173 units/L (5-40) H 01/24/22 16:39 ALT 93 units/L (7-56) H 01/24/22 16:39 Alkaline Phosphatase 73 units/L (35-129) 01/24/22 16:39 Total Protein 7.5 g/dL (6.3-8.2) 01/24/22 16:39 Albumin 4.1 g/dL (3.9-5) 01/24/22 16:39 Albumin/Globulin Ratio 1.2 % 01/24/22 16:39 Urine Color Yellow (Yellow) 01/22/22 03:00 Urine Turbidity Hazy (Clear) 01/22/22 03:00 Specific [place] (Man) 1.015 (1.003-1.030) 01/22/22 03:00 Ur Protein (Man) <30 mg dl mg/dL (Negative) 01/22/22 03:00 Ur Ketones (Man) Negative (Negative) 01/22/22 03:00 Urine Bilirubin (Man) Negative (Negative) 01/22/22 03:00 Urine WBC (Auto) 1.0 /HPF (0.0-6.0) 01/22/22 03:00 Urine RBC (Auto) 2.0 /HPF (0.0-6.0) 01/22/22 03:00 Urine Bacteria (Auto) 1+ /HPF (Negative) 01/22/22 03:00 Urine RBC (Manual) Negative (Negative) 01/22/22 03:00 Urine Mucus Few /HPF 01/22/22 03:00 Salicylates < 0.3 mg/dL (2.8-20.0) L 01/21/22 15:26 Urine Opiates Screen Presumptive negative 01/22/22 03:00 Urine Methadone Screen Presumptive negative 01/22/22 03:00 Acetaminophen 5.0 ug/mL (10.0-30.0) L 01/21/22 15:26 Ur Barbiturates Screen Presumptive negative 01/22/22 03:00 Ur Phencyclidine Scrn Presumptive negative 01/22/22 03:00 Ur Amphetamines Screen Presumptive negative 01/22/22 03:00 U Benzodiazepines Scrn Presumptive positive 01/22/22 03:00 Urine Cocaine Screen Presumptive negative 01/22/22 03:00 U Marijuana (THC) Screen Presumptive positive 01/22/22 03:00 Drugs of Abuse Note Disclamer 01/22/22 03:00 Plasma/Serum Alcohol < 0.01 % (0-0.07) 01/21/22 15:26 SARS-CoV-2 (PCR) Negative (Negative) 01/22/22 11:30 Cee/IV: Voiding Method Condom Catheter Active Medications - Current Medications Current Medications: Generic Name Dose Route Start Last Admin Trade Name Freq PRN Reason Stop Dose Admin Acetaminophen 650 mg 01/21/22 21:54 Acetaminophen 325 Mg Tab PO Q6H PRN Pain MILD(1-3)/Fever >100.5/CORLEY Allopurinol 100 mg 01/22/22 10:00 01/26/22 10:10 Allopurinol 100 Mg Tab PO 100 mg QDAY LESLI Administration Amlodipine Besylate 10 mg 01/22/22 10:00 01/26/22 10:10 Amlodipine 10 Mg Tab PO 10 mg DAILY LESLI Administration Chlordiazepoxide HCl 50 mg 01/24/22 11:57 01/26/22 10:16 Chlordiazepoxide 25 Mg Cap PO 50 mg Q1H PRN Administration CIWA-Ar 8-15 Chlordiazepoxide HCl 100 mg 01/24/22 11:57 Chlordiazepoxide 25 Mg Cap PO Q1H PRN CIWA-Ar 16-25 Colchicine 0.6 mg 01/22/22 10:00 01/26/22 10:10 Colchicine 0.6 Mg Tab PO 0.6 mg DAILY LESLI Administration Folic Acid 1 mg 01/22/22 10:00 01/26/22 10:10 Folic Acid 1 Mg Tab PO 1 mg DAILY LESLI Administration Heparin Sodium (Porcine) 5,000 unit 01/21/22 22:00 01/26/22 05:38 Heparin 5,000 Unit/1 Ml Vial SUB-Q 5,000 unit Q8HR LESLI Administration Hydralazine HCl 10 mg 01/22/22 09:32 01/25/22 23:42 Hydralazine 20 Mg/1 Ml Inj IV 10 mg Q4HR PRN Administration Hypertension Hydrochlorothiazide 50 mg 01/22/22 10:00 01/26/22 10:09 Hydrochlorothiazide 25 Mg Tab PO 50 mg QDAY LESLI Administration Dextrose/Sodium Chloride 1,000 mls @ 42 mls/hr 01/23/22 11:00 01/25/22 16:22 D5ns IV 42 mls/hr DIRECT LESLI Administration Magnesium Hydroxide 30 ml 01/21/22 21:54 Magnesium Hydroxide (Mom) Oral Liqd Udc PO Q4H PRN Constipation Metoprolol Tartrate 25 mg 01/26/22 10:00 01/26/22 10:10 Metoprolol Tartrate 25 Mg Tab PO 25 mg BID LESLI Administration Morphine Sulfate 2 mg 01/21/22 21:54 01/25/22 23:46 Morphine 2 Mg/1 Ml Inj IV 2 mg Q4H PRN Administration Pain, Moderate (4-6) Morphine Sulfate 4 mg 01/21/22 21:54 Morphine 4 Mg/1 Ml Inj IV Q4H PRN Pain , Severe (7-10) Ondansetron HCl 4 mg 01/21/22 21:54 01/25/22 20:08 Ondansetron 4 Mg/2 Ml Inj IV 4 mg Q8H PRN Administration Nausea And Vomiting Sodium Chloride 10 ml 01/21/22 22:00 01/26/22 10:10 Sodium Chloride 0.9% 10 Ml Flush Syringe IV 10 ml BID LESLI Administration Sodium Chloride 10 ml 01/21/22 21:54 Sodium Chloride 0.9% 10 Ml Flush Syringe IV PRN PRN LINE FLUSH Thiamine HCl 100 mg 01/22/22 10:00 01/26/22 10:10 Thiamine 100 Mg Tab PO 100 mg QDAY LESLI Administration Nutrition/Malnutrition Assess - Dietary Evaluation Nutrition/Malnutrition Findings: Nutrition Notes Start: 01/22/22 10:20 Freq: Status: Active Protocol: Document 01/22/22 10:20 REED (Rec: 01/22/22 10:37 REED [email or web address]) Nutrition Notes Need for Assessment generated from: Order,braille translator,MST, Education Initial or Follow up Assessment Current Diagnosis Acute Kidney Injury, Hypertension Other Pertinent Diagnosis EtOH Abuse/Wirhdrawal, Liver Disease. Current Diet Regular -Renal- Diet (since B 01/22). Labs/Tests 01/22: Cl 112.5, CO2 19, BUN 31, Crea 1.7, Glu 108, Ca 8.1, Mg 1.1. Pertinent Medications 01/22: Folic acid, Thiamine, others nutritionally unremarkable. 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 No reports available on Pt;s PO intake of meals at the time . I will prescribe Renal modification to Pt's current diet to support Pt's AKILAH condition. Pt is on Room Air, O2 saturation @ 99%, according to Physical Assessment History notes. Pt has missing teeth, according to Physical Assessment History notes. Pt shows no signs of concern for risk of malnutrition at the time, according to Physical Assessment History notes. Pt still in critical condition , not a candidate for Nutrition Education at the time, will assess feasibility on F/U. Percent of energy/protein needs met: Prescribed Regular Diet provides for energy/protein needs (2,289 Kcal/89 g) during LOS. Burn Absent Trauma Absent GI Symptoms None Food Allergy No Skin Integrity/Comment Assessment WNL. 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 As Evidenced by Signs and Symptoms 01/22: Cl 112.5, CO2 19, BUN 31, Crea 1.7, Glu 108, Ca 8.1, Mg 1.1. Is patient on ventilator? No Is Patient Ambulatory and/or Out of Bed No REE-([facility]-confined to bed) 1662.708 Kcal/Kg value to use for calculation 34 Approximate Energy Requirements Using 1975 kcal/Kg Calculation Used for Recommendations Kcal/kg Additional Notes Protein: 0.8-1 g/Kg ABW; 46-58 g/day. Fluids: 1 ml/Kcal, or as per MD. Nutrition Intervention Change Diet Order: Modify to Regular -Renal- Diet , continue as tolerated. Goal #1 Help reach and maintain acceptable chemistry lab values during LOS. Follow-Up By: 01/28/22 Additional Comments Nutrition education will be provided at F/U, if feasible. Continue monitoring food tolerance, %PO intake of meals , and BM.
[2022-01-26] MEDS: D5W/0.9% NACL 1,000 ML IV SCH (18:38)
[2022-01-27] MEDS: HEPARIN 5,000 UNIT/1 ML VIAL SUB-Q SCH ×3 (05:16→22:07)
--- NOTE | 2022-01-27 08:12 | Progress Note ---
Assessment and Plan Assessment and plan: 61-year-old -Citizen Of [place] male with known history of alcohol abuse and hypertension brought into the emergency room today for evaluation of possible alcohol withdrawal symptoms. History obtained from the ER staff as patient is sedated. There has been no seizures, no fever or chills, no nausea vomiting no abdominal pain. Work-up in the emergency room today, lab reveals a BUN of 41 and creatinine of 2.6. UDS was positive for benzodiazepine and marijuana. 01/22: Continue supportive care. We will discontinue fluids as patient still with persistent hypotension despite treatment of the withdrawal. DTs still persist. Will restart home medication also on IV hydralazine as needed. Continue IMCU care due to hypertensive emergency. Will provide more counseling patient is more sober. Plan of care discussed with nursing staff 01/23: Patient still with acute withdrawal. Understandably this initial shortage of Ativan. We will start on scheduled Ativan and also metoprolol IV. She does have sinus tachycardia tolerating very little diet per history has not been a big eater. We will start on D5 to prevent hypoglycemia. Continue IMCU care at this time still critically ill. Renal function is showing some improvement. 01/24: Patient still with withdrawals but improving some, will transfer to Floor. Continue inpatient care until confusion, improved. 01/25: Confusion improved. Pt oneal at bedside and she states that patient is at baseline. Patient does remain slightly tremulous. Anticipate d/c tomorrow AM back home. Patient can go to floor. 01/26: Still appears to be withdrawing. Continue treatment wiht librium (ativan remains on shortage). supportive management otherwise. encourage to eat po as long as he is not nauseous. metoprolol changed from IV to po. 01/27: Confused overnight. However, he does follow commands and is able to communicate wishes. AO x 2 to self, place. Vitals improved. Plan for potential discharge tomorrow. Patient lives his daughter and niece. 1. Alcohol Withdrawal with delirium tremens 2. AKILAH-possibly prerenal 3. Hypertension-emergency 4. Acute hepatic liver disease 5. Acute metabolic acidosis 6. Acute metabolic Encelalopathy 7. Protein calorie malnutrition- moderate 8. Polysubstance Abuse Plan: 1.discontinue IV fluids continue CIWA protocol 2.Place on antihypertensive. Monitor blood pressure 3.Continue on routine home medications. 4.Continue on IV fluid, monitor BUN/Creatinine. Consult nephrology for evaluation. DVT Prophylaxis:Sq Heparin The high probability of a clinically significant, sudden or life threatening deterioration of the [multi] system(s) required my full and direct attention, intervention and personal management. The aggregate critical care time was [60] minutes. This time is in addition to time spent performing reported procedures but includes the following: [x] Data Review and interpretation [x] Patient assessment and monitoring of vital signs [x] Documentation [x] Medication orders and management History Interval history: No acute complaints. Hospitalist Physical - Physical exam Narrative exam: Physical Exam: VITAL SIGNS: Reviewed. GENERAL: The patient appears normally developed, Vital signs as documented. tremulous HEAD: No signs of head trauma. EYES: Pupils are equal. Extraocular motions intact. EARS: Hearing grossly intact. MOUTH: Oropharynx is normal. NECK: No adenopathy, no JVD. CHEST: Chest with clear breath sounds bilaterally. No wheezes, rales, or rhonchi. CARDIAC: sinus tachycardia rate 133. S1 and S2, without murmurs, gallops, or rubs. VASCULAR: No Edema. Peripheral pulses normal and equal in all extremities. ABDOMEN: Soft, non tender and non distended. No rebound or guarding, and no masses palpated. Bowel Sounds normal. MUSCULOSKELETAL: Good range of motion of all major joints. Extremities without clubbing, cyanosis or edema. NEUROLOGIC EXAM: Alert and oriented x 4. no focal sensory or strength deficits. PSYCHIATRIC: Mood normal. SKIN: detail exam as documented in skin assessment - Constitutional Vitals: Temp Pulse Resp BP Pulse Ox 97.9 F 75 18 126/79 100 01/27/22 05:12 01/27/22 05:12 01/27/22 05:12 01/27/22 05:12 01/27/22 05:12 General appearance: Present: no acute distress, mild distress, well-nourished Results - Labs CBC & Chem 7: 01/24/22 16:39 01/24/22 16:39 Labs: Laboratory Last Values WBC 18.8 K/mm3 (4.5-11.0) H 01/24/22 16:39 RBC 3.76 M/mm3 (3.65-5.03) 01/24/22 16:39 Hgb 11.6 gm/dl (11.8-15.2) L 01/24/22 16:39 Hct 34.0 % (35.5-45.6) L 01/24/22 16:39 MCV 90 fl (84-94) 01/24/22 16:39 MCH 31 pg (28-32) 01/24/22 16:39 MCHC 34 % (32-34) 01/24/22 16:39 RDW 12.9 % (13.2-15.2) L 01/24/22 16:39 Plt Count 162 K/mm3 (140-440) 01/24/22 16:39 Lymph % (Auto) 29.1 % (13.4-35.0) 01/23/22 08:03 [place] % (Auto) 11.7 % (0.0-7.3) H 01/23/22 08:03 Eos % (Auto) 5.2 % (0.0-4.3) H 01/23/22 08:03 Baso % (Auto) 1.9 % (0.0-1.8) H 01/23/22 08:03 Lymph # (Auto) 1.3 K/mm3 (1.2-5.4) 01/23/22 08:03 [place] # (Auto) 0.5 K/mm3 (0.0-0.8) 01/23/22 08:03 Eos # (Auto) 0.2 K/mm3 (0.0-0.4) 01/23/22 08:03 Baso # (Auto) 0.1 K/mm3 (0.0-0.1) 01/23/22 08:03 Seg Neutrophils % 52.1 % (40.0-70.0) 01/23/22 08:03 Seg Neutrophils # 2.4 K/mm3 (1.8-7.7) 01/23/22 08:03 Sodium 137 mmol/L (137-145) 01/24/22 16:39 Potassium 3.9 mmol/L (3.6-5.0) 01/24/22 16:39 Chloride 102.9 mmol/L (98-107) 01/24/22 16:39 Carbon Dioxide 16 mmol/L (22-30) L 01/24/22 16:39 Anion Gap 22 mmol/L 01/24/22 16:39 BUN 22 mg/dL (9-20) H 01/24/22 16:39 Creatinine 1.8 mg/dL (0.8-1.3) H 01/24/22 16:39 Estimated GFR 47 ml/min 01/24/22 16:39 BUN/Creatinine Ratio 12 % 01/24/22 16:39 Glucose 115 mg/dL (75-100) H 01/24/22 16:39 POC Glucose 120 mg/dL (70-105) H 01/25/22 16:20 Calcium 9.4 mg/dL (8.4-10.2) 01/24/22 16:39 Magnesium 1.10 mg/dL (1.7-2.3) L 01/22/22 07:54 Total Bilirubin 0.70 mg/dL (0.1-1.2) 01/24/22 16:39 AST 173 units/L (5-40) H 01/24/22 16:39 ALT 93 units/L (7-56) H 01/24/22 16:39 Alkaline Phosphatase 73 units/L (35-129) 01/24/22 16:39 Total Protein 7.5 g/dL (6.3-8.2) 01/24/22 16:39 Albumin 4.1 g/dL (3.9-5) 01/24/22 16:39 Albumin/Globulin Ratio 1.2 % 01/24/22 16:39 Urine Color Yellow (Yellow) 01/22/22 03:00 Urine Turbidity Hazy (Clear) 01/22/22 03:00 Specific [place] (Man) 1.015 (1.003-1.030) 01/22/22 03:00 Ur Protein (Man) <30 mg dl mg/dL (Negative) 01/22/22 03:00 Ur Ketones (Man) Negative (Negative) 01/22/22 03:00 Urine Bilirubin (Man) Negative (Negative) 01/22/22 03:00 Urine WBC (Auto) 1.0 /HPF (0.0-6.0) 01/22/22 03:00 Urine RBC (Auto) 2.0 /HPF (0.0-6.0) 01/22/22 03:00 Urine Bacteria (Auto) 1+ /HPF (Negative) 01/22/22 03:00 Urine RBC (Manual) Negative (Negative) 01/22/22 03:00 Urine Mucus Few /HPF 01/22/22 03:00 Salicylates < 0.3 mg/dL (2.8-20.0) L 01/21/22 15:26 Urine Opiates Screen Presumptive negative 01/22/22 03:00 Urine Methadone Screen Presumptive negative 01/22/22 03:00 Acetaminophen 5.0 ug/mL (10.0-30.0) L 01/21/22 15:26 Ur Barbiturates Screen Presumptive negative 01/22/22 03:00 Ur Phencyclidine Scrn Presumptive negative 01/22/22 03:00 Ur Amphetamines Screen Presumptive negative 01/22/22 03:00 U Benzodiazepines Scrn Presumptive positive 01/22/22 03:00 Urine Cocaine Screen Presumptive negative 01/22/22 03:00 U Marijuana (THC) Screen Presumptive positive 01/22/22 03:00 Drugs of Abuse Note Disclamer 01/22/22 03:00 Plasma/Serum Alcohol < 0.01 % (0-0.07) 01/21/22 15:26 SARS-CoV-2 (PCR) Negative (Negative) 01/22/22 11:30 Cee/IV: Voiding Method Condom Catheter Active Medications - Current Medications Current Medications: Generic Name Dose Route Start Last Admin Trade Name Freq PRN Reason Stop Dose Admin Acetaminophen 650 mg 01/21/22 21:54 Acetaminophen 325 Mg Tab PO Q6H PRN Pain MILD(1-3)/Fever >100.5/CORLEY Allopurinol 100 mg 01/22/22 10:00 01/26/22 10:10 Allopurinol 100 Mg Tab PO 100 mg QDAY LESLI Administration Amlodipine Besylate 10 mg 01/22/22 10:00 01/26/22 10:10 Amlodipine 10 Mg Tab PO 10 mg DAILY LESLI Administration Chlordiazepoxide HCl 50 mg 01/24/22 11:57 01/26/22 14:35 Chlordiazepoxide 25 Mg Cap PO 50 mg Q1H PRN Administration CIWA-Ar 8-15 Chlordiazepoxide HCl 100 mg 01/24/22 11:57 Chlordiazepoxide 25 Mg Cap PO Q1H PRN CIWA-Ar 16-25 Colchicine 0.6 mg 01/22/22 10:00 01/26/22 10:10 Colchicine 0.6 Mg Tab PO 0.6 mg DAILY LESLI Administration Folic Acid 1 mg 08/20/22 10:00 01/26/22 10:10 Folic Acid 1 Mg Tab PO 1 mg DAILY LESLI Administration Heparin Sodium (Porcine) 5,000 unit 01/21/22 22:00 01/27/22 05:16 Heparin 5,000 Unit/1 Ml Vial SUB-Q 5,000 unit Q8HR LESLI Administration Hydralazine HCl 10 mg 01/22/22 09:32 01/25/22 23:42 Hydralazine 20 Mg/1 Ml Inj IV 10 mg Q4HR PRN Administration Hypertension Hydrochlorothiazide 50 mg 01/22/22 10:00 01/26/22 10:09 Hydrochlorothiazide 25 Mg Tab PO 50 mg QDAY LESLI Administration Dextrose/Sodium Chloride 1,000 mls @ 42 mls/hr 01/23/22 11:00 01/26/22 18:38 D5ns IV 42 mls/hr DIRECT LESLI Administration Magnesium Hydroxide 30 ml 01/21/22 21:54 Magnesium Hydroxide (Mom) Oral Liqd Udc PO Q4H PRN Constipation Metoprolol Tartrate 25 mg 01/26/22 10:00 01/26/22 22:33 Metoprolol Tartrate 25 Mg Tab PO 25 mg BID LESLI Administration Morphine Sulfate 2 mg 01/21/22 21:54 01/25/22 23:46 Morphine 2 Mg/1 Ml Inj IV 2 mg Q4H PRN Administration Pain, Moderate (4-6) Morphine Sulfate 4 mg 01/21/22 21:54 Morphine 4 Mg/1 Ml Inj IV Q4H PRN Pain , Severe (7-10) Ondansetron HCl 4 mg 01/21/22 21:54 01/25/22 20:08 Ondansetron 4 Mg/2 Ml Inj IV 4 mg Q8H PRN Administration Nausea And Vomiting Sodium Chloride 10 ml 01/21/22 22:00 01/26/22 22:32 Sodium Chloride 0.9% 10 Ml Flush Syringe IV 10 ml BID LESLI Administration Sodium Chloride 10 ml 01/21/22 21:54 Sodium Chloride 0.9% 10 Ml Flush Syringe IV PRN PRN LINE FLUSH Thiamine HCl 100 mg 01/22/22 10:00 01/26/22 10:10 Thiamine 100 Mg Tab PO 100 mg QDAY LESLI Administration Nutrition/Malnutrition Assess - Dietary Evaluation Nutrition/Malnutrition Findings: Nutrition Notes Start: 01/22/22 10:20 Freq: Status: Active Protocol: Document 01/22/22 10:20 REED (Rec: 01/22/22 10:37 REED [id number]) Nutrition Notes Need for Assessment generated from: MD Order,ore fielder,MST, Education Initial or Follow up Assessment Current Diagnosis Acute Kidney Injury, Hypertension Other Pertinent Diagnosis EtOH Abuse/Wirhdrawal, Liver Disease. Current Diet Regular -Renal- Diet (since B 01/22). Labs/Tests 01/22: Cl 112.5, CO2 19, BUN 31, Crea 1.7, Glu 108, Ca 8.1, Mg 1.1. Pertinent Medications 01/22: Folic acid, Thiamine, others nutritionally unremarkable. Height 5 ft 9 in Weight 58.1 kg [place] Body Weight (kg) 72.72 BMI 18.9 Intake Prior to Admission Good Weight change and time frame Pt states being unsure if loss body weight [employer]. 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 No reports available on Pt;s PO intake of meals at the time . I will prescribe Renal modification to Pt's current diet to support Pt's AKILAH condition. Pt is on Room Air, O2 saturation @ 99%, according to Physical Assessment History notes. Pt has missing teeth, according to Physical Assessment History notes. Pt shows no signs of concern for risk of malnutrition at the time, according to Physical Assessment History notes. Pt still in critical condition , not a candidate for Nutrition Education at the time, will assess feasibility on F/U. Percent of energy/protein needs met: Prescribed Regular Diet provides for energy/protein needs (2,289 Kcal/89 g) during LOS. Burn Absent Trauma Absent GI Symptoms None Food Allergy No Skin Integrity/Comment Assessment WNL. Minimum of two criteria No Fluid Accumulation N/A Reduced Mitten Stitcher Strength N/A (non-severe) Protein-Calorie Malnutrition N\A #1 Nutrition Diagnosis Altered nutrition-related laboratory values Etiology AKILAH. As Evidenced by Signs and Symptoms 01/22: Cl 112.5, CO2 19, BUN 31, Crea 1.7, Glu 108, Ca 8.1, Mg 1.1. Is patient on ventilator? No Is Patient Ambulatory and/or Out of Bed No REE-([facility]-confined to bed) 1662.708 Kcal/Kg value to use for calculation 34 Approximate Energy Requirements Using 1975 kcal/Kg Calculation Used for Recommendations Kcal/kg Additional Notes Protein: 0.8-1 g/Kg ABW; 46-58 g/day. Fluids: 1 ml/Kcal, or as per MD. Nutrition Intervention Change Diet Order: Modify to Regular -Renal- Diet , continue as tolerated. Goal #1 Help reach and maintain acceptable chemistry lab values during LOS. Follow-Up By: 01/28/22 Additional Comments Nutrition education will be provided at F/U, if feasible. Continue monitoring food tolerance, %PO intake of meals , and BM.
[2022-01-27] MEDS: amLODIPine 10 MG TAB PO SCH (09:06)
[2022-01-27] MEDS: FOLIC ACID 1 MG TAB PO SCH (09:06)
[2022-01-27] MEDS: hydroCHLOROthiazide 25 MG TAB PO SCH (09:06)
[2022-01-27] MEDS: allopurinoL 100 MG TAB PO SCH (09:07)
[2022-01-27] MEDS: THIAMINE 100 MG TAB PO SCH (09:07)
[2022-01-27] MEDS: METOPROLOL TARTRATE 25 MG TAB PO SCH ×2 (09:07→22:07)
[2022-01-27] MEDS: COLCHICINE 0.6 MG TAB PO SCH (14:30)
[2022-01-27] MEDS: D5W/0.9% NACL 1,000 ML IV SCH (18:13)
[2022-01-28 05:23] VITALS: BP 111/65
[2022-01-28] MEDS: HEPARIN 5,000 UNIT/1 ML VIAL SUB-Q SCH (05:55)
[2022-01-28] MEDS: METOPROLOL TARTRATE 25 MG TAB PO SCH (11:22)
[2022-01-28] MEDS: hydroCHLOROthiazide 25 MG TAB PO SCH (11:23)
[2022-01-28] MEDS: allopurinoL 100 MG TAB PO SCH (11:23)
[2022-01-28] MEDS: FOLIC ACID 1 MG TAB PO SCH (11:23)
[2022-01-28] MEDS: THIAMINE 100 MG TAB PO SCH (11:23)
[2022-01-28] MEDS: amLODIPine 10 MG TAB PO SCH (11:24)
--- NOTE | 2022-01-28 12:58 | Discharge Summary ---
Providers - Providers Date of Admission: 01/21/22 21:55 Date of discharge: 01/28/22 Attending physician: SILAS NUÑEZ MD 01/21/22 21:55 Consult to Dietitian/Nutrition [CONS] Routine Physician Instructions: Reason For Exam: Reason for Consult: Diet education 01/26/22 12:50 Speech Therapy Evaluation and Treat [CONS] Routine Reason For Exam: patient say its hard to swallow sometimes Primary care physician: CUSTOMER SUCCESS MANAGER Hospitalization Reason for admission: tremulous, alcoholic withdrawal Condition: Stable Hospital course: 61-year-old -Citizen Of [place] male with known history of alcohol abuse and hypertension brought into the emergency room today for evaluation of possible alcohol withdrawal symptoms. History obtained from the ER staff as patient is sedated. There has been no seizures, no fever or chills, no nausea vomiting no abdominal pain. Work-up in the emergency room today, lab reveals a BUN of 41 and creatinine of 2.6. UDS was positive for benzodiazepine and marijuana. Hospital Course: 01/22: Continue supportive care. We will discontinue fluids as patient still with persistent hypotension despite treatment of the withdrawal. DTs still persist. Will restart home medication also on IV hydralazine as needed. Continue IMCU care due to hypertensive emergency. Will provide more counseling patient is more sober. Plan of care discussed with nursing staff 01/23: Patient still with acute withdrawal. Understandably this initial shortage of Ativan. We will start on scheduled Ativan and also metoprolol IV. She does have sinus tachycardia tolerating very little diet per history has not been a big eater. We will start on D5 to prevent hypoglycemia. Continue IMCU care at this time still critically ill. Renal function is showing some improvement. 01/24: Patient still with withdrawals but improving some, will transfer to Floor. Continue inpatient care until confusion, improved. 01/25: Confusion improved. Pt oneal at bedside and she states that patient is at baseline. Patient does remain slightly tremulous. Anticipate d/c tomorrow AM back home. Patient can go to floor. 01/26: Still appears to be withdrawing. Continue treatment with librium (ativan remains on shortage). supportive management otherwise. encourage to eat po as long as he is not nauseous. metoprolol changed from IV to po. 01/27: Confused overnight. However, he does follow commands and is able to communicate wishes. AO x 2 to self, place. Vitals improved. Plan for potential discharge tomorrow. Patient lives his daughter and niece. 01/28: Following commands, Out of restraints. AOX3. Clear for discharge will go home with daughter. Assessment and Plan: 1. Alcohol Withdrawal with delirium tremens 2. AKILAH-possibly prerenal 3. Hypertension-emergency 4. Acute hepatic liver disease 5. Acute metabolic acidosis 6. Acute metabolic Encelalopathy (resolved) 7. Protein calorie malnutrition- moderate 8. Polysubstance Abuse Plan: 1.discontinue IV fluids continue CIWA protocol 2.Place on antihypertensive. Monitor blood pressure 3.Continue on routine home medications. 4.Continue on IV fluid, monitor BUN/Creatinine. Consult nephrology for evaluation. DVT Prophylaxis:Sq Heparin Disposition: HOME / SELF CARE / HOMELESS Final Discharge Diagnosis (Prints w/discharge instructions): 1. Alcohol Withdrawal with delirium tremens. 2. AKILAH-possibly prerenal. 3. Hypertension- emergency. 4. Acute hepatic liver disease. 5. Acute metabolic acidosis. 6. Acute metabolic Encelalopathy (resolved). 7. Protein calorie malnutrition- moderate. 8. Polysubstance Abuse Time spent for discharge: 35 Core Measure Documentation - Palliative Care Palliative Care/ Comfort Measures: Not Applicable - Core Measures Any of the following diagnoses?: none Exam - Physical Exam Narrative exam: Physical Exam: VITAL SIGNS: Reviewed. GENERAL: The patient appears normally developed, Vital signs as documented. tremulous HEAD: No signs of head trauma. EYES: Pupils are equal. Extraocular motions intact. EARS: Hearing grossly intact. MOUTH: Oropharynx is normal. NECK: No adenopathy, no JVD. CHEST: Chest with clear breath sounds bilaterally. No wheezes, rales, or rhonchi. CARDIAC: sinus tachycardia rate 133. S1 and S2, without murmurs, gallops, or rubs. VASCULAR: No Edema. Peripheral pulses normal and equal in all extremities. ABDOMEN: Soft, non tender and non distended. No rebound or guarding, and no masses palpated. Bowel Sounds normal. MUSCULOSKELETAL: Good range of motion of all major joints. Extremities without clubbing, cyanosis or edema. NEUROLOGIC EXAM: Alert and oriented x 4. no focal sensory or strength deficits. PSYCHIATRIC: Mood normal. SKIN: detail exam as documented in skin assessment - Constitutional Vitals: Temp Pulse Resp BP Pulse Ox 98.5 F 79 18 111/65 96 01/28/22 05:21 01/28/22 05:21 01/28/22 05:21 01/28/22 05:21 01/28/22 05:21 Plan Follow up with: PRIMARY CARE, [Primary Care Provider] - 3-5 Days Prescriptions: chlordiazePOXIDE [Librium] 25 mg PO Q6H 5 Days #20 cap NS
[2022-01-28] MEDS: COLCHICINE 0.6 MG TAB PO SCH (15:01)
== END 2022-01-28 14:56 | disposition home or self-care (01) | DRG 682 ==
LOC: ED 12:22 → IMCU 21:55 → 3A 01-26 14:50
PROVIDERS: ADMIT Internal Medicine Geriatric Medicine; ATTEND Internal Medicine
DX: N17.9 Acute kidney failure, unspecified (principal); G93.41 Metabolic encephalopathy; Z20.822 Contact with and (suspected) exposure to COVID-19; F10.131 Alcohol abuse with withdrawal delirium; I16.1 Hypertensive emergency; E87.2 Acidosis; E44.0 Moderate protein-calorie malnutrition; Z68.1 Body mass index [BMI] 19.9 or less, adult; F19.10 Other psychoactive substance abuse, uncomplicated; F12.10 Cannabis abuse, uncomplicated; K76.9 Liver disease, unspecified; I10 Essential (primary) hypertension; M10.9 Gout, unspecified; Y90.9 Presence of alcohol in blood, level not specified; M19.90 Unspecified osteoarthritis, unspecified site
CPT/HCPCS: 36415; 80048; 80053; 80307; 80320; 81001; 82962; 83735; 85025; 85027; 94760; 99285; G0378; J3490; G0480; J0360; J1644; J2250; J2270; J2405; J3411; J7030; J7042; U0003